=== PATIENT | female | born 1945 ===

== ENCOUNTER 2017-05-29 13:33 | Inpatient (IN) | payer BC, MEDICARE ==
--- NOTE | 2017-05-29 14:07 | ED PDOC ---
Arrival/HPI - General Chief Complaint: Shortness Of Breath Time Seen by Provider: 05/29/17 13:52 Historian: Patient - History of Present Illness Narrative History of Present Illness (Text): 05/29/17 14:03 A 71 year old female, whose past medical history includes hypertension, CHF, COPD, PE/DVT on coumadin, and sleep apnea, presents to the emergency department complaining of a productive cough for 5 days. Patient notes mild shortness of breath, however states it is not different from her normal baseline. Patient was seen at [facility] in [place], where she found to have pneumonia. Patient was later seen today by PMD who instructed her to come in for further evaluation. Patient denies any fever, chills, sore throat, congestion, nausea, vomiting, abdominal pain, chest pain, lower extremity swelling or any other complaints. PMD: Dr. Kohli Time/Duration: Other (5 days) Symptom Course: Unchanged Context: Other Past Medical History - Provider Review Nursing Documentation Reviewed: Yes - Infectious Disease Hx of Infectious Diseases: None - Tetanus Immunization Tetanus Immunization: Unknown - Cardiac Hx Cardiac Disorders: Yes Hx Circulatory Problems: Yes Hx Hypertension: Yes Hx Peripheral Vascular Disease: Yes Other/Comment: DVT/PE - Pulmonary Hx Respiratory Disorders: Yes Hx Chronic Obstructive Pulmonary Disease (COPD): Yes Hx Pulmonary Embolism: Yes (apr 2014) Hx Sleep Apnea: Yes (CPAP) - Neurological Hx Neurological Disorder: Yes Hx Dizziness: Yes Hx Transient Ischemic Attacks (TIA): Yes (04-29-15) - HEENT Hx Cataracts: Yes - Renal Hx Renal Disorder: No - Endocrine/Metabolic Hx Endocrine Disorders: No - Hematological/Oncological Hx Blood Disorders: Yes Hx Anemia: Yes - Integumentary Hx Dermatological Disorder: No - Musculoskeletal/Rheumatological Hx Musculoskeletal Disorders: Yes Hx Osteoarthritis: Yes - Gastrointestinal Hx Gastrointestinal Disorders: Yes - Genitourinary/Gynecological Hx Genitourinary Disorders: Yes (URGENCY) Hx Incontinence: Yes (only when on water pill) Hx Urinary Tract Infection: Yes - Psychiatric Hx Psychophysiologic Disorder: No Hx Substance Use: No - Past Surgical History Past Surgical History: No Previous - Anesthesia Hx Anesthesia: Yes Hx Anesthesia Reactions: No Hx Malignant Hyperthermia: No - Suicidal Assessment Feels Threatened In Home Enviroment: No Family/Social History - Physician Review Nursing Documentation Reviewed: Yes Family/Social History: No Known Family HX Smoking Status: Former Smoker Hx Alcohol Use: Yes Hx Substance Use: No Allergies/Home Meds Allergies/Adverse Reactions: Allergies No Known Allergies Allergy (Verified 05/29/17 13:55) Home Medications: Home Meds Medication Instructions Recorded Confirmed Unobtainable 05/29/17 05/29/17 Review of Systems - Physician Review All systems were reviewed & negative as marked: Yes - Review of Systems Constitutional: absent: Fevers, Night Sweats ENT: absent: Sore Throat, Sinus Congestion Respiratory: SOB, Cough, Sputum Cardiovascular: absent: Chest Pain, Edema Gastrointestinal: absent: Abdominal Pain, Nausea, Vomiting Physical Exam Vital Signs Reviewed: Yes Vital Signs Temp Pulse Resp BP Pulse Ox 05/29/17 14:30 82 20 131/77 97 05/29/17 14:00 94 L 05/29/17 13:59 98.6 F 71 18 139/79 89 L 05/29/17 13:50 98.5 F 79 18 121/77 86 L Temperature: Afebrile Blood Pressure: Normal Pulse: Regular Respiratory Rate: Normal Appearance: Positive for: Well-Appearing, Non-Toxic, Comfortable Pain Distress: None Mental Status: Positive for: Alert and Oriented X 3 - Systems Exam Head: Present: Atraumatic, Normocephalic Pupils: Present: PERRL Extroacular Muscles: Present: EOMI Conjunctiva: Present: Normal Mouth: Present: Moist Mucous Membranes Neck: Present: Normal Range of Motion Respiratory/Chest: Present: Clear to Auscultation, Good Air Exchange, Other ( hypoxic). No: Respiratory Distress, Accessory Muscle Use Cardiovascular: Present: Regular Rate and Rhythm, Normal S1, S2. No: Murmurs Abdomen: Present: Normal Bowel Sounds. No: Tenderness, Distention, Peritoneal Signs Back: Present: Normal Inspection Upper Extremity: Present: Normal Inspection. No: Cyanosis, Edema Lower Extremity: Present: Normal Inspection, NORMAL PULSES. No: Edema, CALF TENDERNESS Neurological: Present: GCS=15, CN II-XII Intact, Speech Normal Skin: Present: Warm, Dry, Normal Color. No: Rashes Psychiatric: Present: Alert, Oriented x 3, Normal Insight, Normal Concentration Medical Decision Making ED Course and Treatment: 05/29/17 14:03 Impression: A 71 year old female with productive cough and mild shortness of breath Differential Diagnosis included but are not limited to: PNA vs. PE vs. COPD Plan: -- Chest xray -- EKG -- Labs -- Influenza A B stat -- Blood culture -- Urinalysis -- Reassess and disposition Progress Notes: EKG shows NSR at [address]-segment elevations, normal intervals, normal axis. Interpreted by me. 05/29/17 14:[address] Kohli, who reports patient was diagnosed with pneumonia yesterday and sent home on zithromycin. Recommends admission for IV antibiotics and requests Dr. Herrera for consult. 05/29/17 14:[address] Mathis from [facility] in [place], who reports patient was diagnosed with left lower lobe pneumonia on 05/28/17 and had a negative ultrasound for DVT. He notes patient refused chest CT and admission. Report Date : 05/29/2017 14:39:46 Procedure: Chest xray Dictator : Kendell Hudson MD IMPRESSION: There is a left lower lobe perihilar infiltrate consistent with pneumonia. 05/29/17 15:04 Patient treated with Rocephin IV and Azithromycin PO. Patient's ABG reviewed. Patient is 97% Oxy Sat on 2 L NC. She does not appear in respiratory distress. Will admit to Dr. Kohli's service to the Medical Floor for treatment of PNA. Patient failed outpatient treatment and needs IV antibiotics and considering her comorbidites she should be admitted. 05/29/17 15:57 D-dimer normal. Patient has a diagnosis of PNA and being treated. - Lab Interpretations Lab Results: 05/29/17 14:15 05/29/17 14:15 Lab Results 05/29/17 14:35: pCO2 52 H, pO2 72.0 L, HCO3 29.4 H, ABG pH 7.36, ABG Total CO2 31.0 H, ABG O2 Saturation 97.7, ABG O2 Content 14.7 L, ABG Base Excess 3.1 H, ABG Hemoglobin 11.1 L, ABG Carboxyhemoglobin 2.8 H, POC ABG HHb (Measured) 2.2, ABG Methemoglobin 0.9, ABG O2 Capacity 15.0 L, Hgb O2 Saturation 94.0 L, FiO2 30.0 05/29/17 14:15: Influenza Typ A,B (EIA) Negative for flu a/b 05/29/17 14:15: Sodium 140, Chloride 102, Potassium 4.6, Carbon Dioxide 31, Anion Gap 12, BUN 15, Creatinine 0.8, Est GFR ( Amer) > 60, Est GFR (Non- Af Amer) > 60, Random Glucose 119 H, Calcium 9.1, Total Bilirubin 0.4, AST 27, ALT 16, Alkaline Phosphatase 83, Lactate Dehydrogenase 566, Total Creatine Kinase 60, Troponin I < 0.01 D, NT-Pro-B Natriuret Pep 1010 H, Total Protein 7.1, Albumin 3.6, Globulin 3.5, Albumin/Globulin Ratio 1.0 L 05/29/17 14:15: pO2 58 H, VBG pH 7.36, VBG pCO2 59.0, VBG HCO3 33.3 H, VBG Total CO2 35.1 H, VBG O2 Sat (Calc) 93.3 H, VBG Base Excess 6.0 H, VBG Potassium 5.2, Sodium 136.0, Chloride 105.0, Glucose 125 H, Lactate 1.4, FiO2 21.0, Venous Blood Potassium 5.2 05/29/17 14:15: PT 13.8 H, INR 1.21 H, APTT 27.4, D-Dimer, Quantitative 242 05/29/17 14:15: WBC 6.9 D, RBC 4.26, Hgb 11.5 L, Hct 37.2, MCV 87.3, MCH 27.0, MCHC 30.9 L, RDW 16.3 H, Plt Count 328, MPV 9.6, Gran % 63.6, Lymph % (Auto) 21.0 L, [place] % (Auto) 12.2 H, Eos % (Auto) 2.8, Baso % (Auto) 0.4, Gran # 4.36, Lymph # (Auto) 1.4, [place] # (Auto) 0.8 H, Eos # (Auto) 0.2, Baso # (Auto) 0.03 I have reviewed the lab results: Yes - RAD Interpretation Radiology Orders: 05/29/17 14:04 CHEST PORTABLE [RAD] Stat - Medication Orders Current Medication Orders: Discontinued Medications Azithromycin (Zithromax) 500 mg PO STAT STA PRN Reason: Protocol Stop: 05/29/17 15:02 Last Admin: 05/29/17 15:19 Dose: 500 mg Ceftriaxone Sodium (Rocephin 1 Gram Ivpb) 1 gm in 100 mls @ 200 mls/hr IVPB STAT STA PRN Reason: Protocol Stop: 05/29/17 15:30 Last Admin: 05/29/17 15:21 Dose: 200 mls/hr eMAR Start Stop Document 05/29/17 15:21 FABIAN (Rec: 05/29/17 15:23 GENAROCalli [id number]) Intravenous Solution Start Date 05/29/17 Start Time 15:22 End Date 05/29/17 End time 16:00 Total Infusion Time 38 - Scribe Statement The provider has reviewed the documentation as recorded by the Miladysibilene Fontaine Provider Scribe Attestation: All medical record entries made by the Scribe were at my direction and personally dictated by me. I have reviewed the chart and agree that the record accurately reflects my personal performance of the history, physical exam, medical decision making, and the department course for this patient. I have also personally directed, reviewed, and agree with the discharge instructions and disposition. Disposition/Present on Arrival - Present on Arrival Any Indicators Present on Arrival: Yes History of DVT/PE: Yes History of Uncontrolled Diabetes: No Urinary Catheter: No History of Decub. Ulcer: No History Surgical Site Infection Following: None - Disposition Have Diagnosis and Disposition been Completed?: Yes Diagnosis: Pneumonia Disposition Time: 15:01 Patient Plan: Admission Condition: GUARDED
--- NOTE | 2017-05-29 14:41 | RAD ---
HISTORY: cough r/o pna COMPARISON: 05/02/2015 FINDINGS: LUNGS: There is a left lower lobe perihilar infiltrate consistent with pneumonia. PLEURA: No significant pleural effusion identified, no pneumothorax apparent. CARDIOVASCULAR: Normal. OSSEOUS STRUCTURES: No significant abnormalities. VISUALIZED UPPER ABDOMEN: Normal. OTHER FINDINGS: None. IMPRESSION: There is a left lower lobe perihilar infiltrate consistent with pneumonia.
[2017-05-29 14:42] LABS: ARTERIAL BLOOD GAS HCO3 29.4 mmol/L (21-28); ARTERIAL BLOOD GAS HEMOGLOBIN 11.1 g/dL (11.7-17.4); ARTERIAL BLOOD GAS O2 CONTENT 14.7 ML/dl (15-23); ARTERIAL BLOOD GAS O2 SAT 97.7 % (95-98); ARTERIAL BLOOD GAS PCO2 52 mm/Hg (35-45); ARTERIAL BLOOD GAS PH 7.36 (7.35-7.45)
[2017-05-29 14:45] LABS: VENOUS BLOOD GAS PO2 58 mm/Hg (30-55); VENOUS BLOOD PH 7.36 (7.32-7.43)
[2017-05-29 14:46] LABS: BASO # 0.03 K/mm3 (0.0-2.0); BASO % 0.4 % (0.0-3.0); EOS # 0.2 (0.0-0.7); EOS % 2.8 % (1.5-5.0); GRAN # 4.36 (1.4-6.5); GRAN % 63.6 % (50.0-68.0); HEMOGLOBIN 11.5 g/dL (12.0-16.0); LYMPH # 1.4 (1.2-3.4); MEAN CELL VOLUME 87.3 fl (80.0-105.0); MEAN CORPUSCULAR HGB CONC 30.9 g/dl (31.0-37.0); MEAN PLATELET VOLUME 9.6 fl (7.0-11.0); MONO # 0.8 (0.1-0.6); MONO % 12.2 % (1.0-6.0); RBC 4.26 10^6/uL (3.5-6.1); RED CELL DISTRIBUTION WIDTH 16.3 % (11.5-14.5); WHITE BLOOD COUNT 6.9 10^3/ul (4.5-11.0)
[2017-05-29 14:59] LABS: INR 1.21 (0.93-1.08); PARTIAL THROMBOPLASTIN TIME 27.4 Seconds (25.1-36.5); PROTHROMBIN TIME 13.8 SECONDS (9.4-12.5)
[2017-05-29] MEDS ORDERED: cefTRIAXone 1 gm 1 GM/100 ML BAG IVPB STA (15:01)
[2017-05-29 15:07] LABS: ALBUMIN 3.6 g/dL (3.0-4.8); ALT/SGPT 16 U/L (7-56); AST/SGOT 27 U/L (14-36); BLOOD UREA NITROGEN 15 mg/dL (7-21); CALCIUM 9.1 mg/dL (8.4-10.5); GFR AFRICAN-AMERICAN > 60; GFR NON-AFRICAN AMERICAN > 60
[2017-05-29 15:24] LABS: B-TYPE NATRIURETIC PEPTIDE 1010 pg/mL (0-450); TROPONIN I < 0.01 ng/mL
[2017-05-29 16:40] LABS: PH,URINE 6.5 (4.7-8.0); URINE BILIRUBIN NEGATIVE (NEGATIVE); URINE BLOOD NEGATIVE (NEGATIVE); URINE GLUCOSE (UA) NEGATIVE (NEGATIVE); URINE LEUKOCYTE ESTERASE NEGATIVE Leu/uL (NEGATIVE); URINE NITRATE NEGATIVE (NEGATIVE); URINE PROTEIN NEGATIVE mg/dL (<30 mg/dL); URINE UROBILINOGEN 0.2 E.U./dL (<1 E.U./dL)
[2017-05-29 16:41] LABS: URINE APPEARANCE CLEAR (CLEAR); URINE COLOR YELLOW (YELLOW)
--- NOTE | 2017-05-29 20:47 | CARD ---
APPROVED REPORT EKG Measurement Heart [id number] [id number] <Conclusion> Normal sinus rhythm Normal ECG
[2017-05-29 21:51] VITALS: BMI 36.6
[2017-05-29] MEDS ORDERED: Pneumococcal 23-Valent Vaccine IM ONE (21:51)
[2017-05-29] MEDS ORDERED: Influenza Vaccine 60 mcg/0.5 mL SYR (4YR UP) IM ONE (21:51)
[2017-05-30] MEDS: Albuterol-Ipratrop 3 mg / 0.5 (3 ml) UD IH SCH ×4 (01:16→20:25)
--- NOTE | 2017-05-30 03:37 | CON ---
DATE: 05/29/2017 PULMONARY CONSULT REFERRING PHYSICIAN: Melvina Kohli MD. REASON FOR CONSULT: Cough, shortness of breath, pneumonia. HISTORY OF PRESENT ILLNESS: This is a 71-year-old female with past medical history significant for chronic obstructive lung disease, history of PE, DVT, on anticoagulation, also has a known sleep apnea syndrome, congestive heart failure, comes into ER with cough for last few days. She was also seen at [facility], seen by Dr. Kohli as outpatient, was recommended to come to ER. Chest x-ray shows left lung infiltrate. No hemoptysis, no hematemesis, no hematuria. No diarrhea reported. PAST MEDICAL HISTORY: Chronic obstructive lung disease, heart failure, history of PE, DVT, sleep apnea syndrome, history of TIAs, anemia, osteoarthritis, history of GI bleed in the past. FAMILY HISTORY: No significant cardiopulmonary disease reported. SOCIAL HISTORY: Former smoker. Denies any alcohol use. ALLERGIES: NONE KNOWN. MEDICATIONS: As outpatient, she was on Coumadin, Diovan, Lasix and Coreg. REVIEW OF SYSTEMS: No headache, no rhinitis. Has cough, shortness of breath. No chest pain. No nausea. No vomiting. No diarrhea. No dysuria. No leg pain or leg swelling. PHYSICAL EXAMINATION: GENERAL: Sitting on side of the bed with mild cough. VITAL SIGNS: Temp is 98, heart rate is 72, respiratory rate is 18, blood pressure 129/63, pulse ox 97% on 2 L nasal cannula. HEENT: Moist mucous membrane. Crowded airway. Mallampati score is 4. NECK: Supple. No JVD. LUNGS: Have a scattered rhonchi, prolonged expiratory phase. HEART: S1 and S2. ABDOMEN: Soft, nontender. No organomegaly. EXTREMITIES: There is no edema. NEUROLOGIC: Awake, alert. Follows simple command. LABORATORY DATA: Shows hemoglobin 11.5, hematocrit 37.2, WBC 6.9, platelet is 328. INR 1.21, PTT is 27. ABG showed pH 7.36, pCO2 of 52, O2 of 72. This is on nasal cannula. Sodium 140, potassium 4.6, chloride 102, bicarbonate 31, BUN 15, creatinine 0.8, glucose 119, calcium 9.1, total bili 0.4, AST 27, ALT 16, alk phos is 83. LDH 566. Troponin less than 0.01. ProBNP 1010. Albumin 3.6. Urinalysis is unremarkable. Influenza A and B is negative. Chest x-ray shows left hilar and lower lobe infiltrate. She had echocardiogram done last year, which shows right ventricular systolic pressure is 37, dilated left atrium and right atrium. Mild pulmonary hypertension with mild concentric left ventricular hypertrophy. Last chest x-ray before that was in 05/2016, which shows no infiltrate or effusion. IMPRESSION AND PLAN: Community-acquired pneumonia, chronic obstructive lung disease, sleep apnea syndrome, history of deep venous thrombosis and pulmonary embolism, history of transient ischemic attacks, renal insufficiency, anemia. We will get CT scan of chest to assure the infiltrates. May give Coumadin 5 mg today. INR in the morning. We will place on continuous positive airway pressure 10 cm and 30% oxygen while sleeping. Start Rocephin and Zithromax, Solu-Medrol, inhaled bronchodilator, gastric prophylaxis. Thank you and we will follow with you. Danii Herrera MD
[2017-05-30] MEDS: Pantoprazole 40 mg EC Tab PO SCH (06:07)
[2017-05-30 07:53] LABS: PROTHROMBIN TIME 15.3 SECONDS (9.4-12.5)
[2017-05-30 07:54] LABS: INR 1.32 (0.93-1.08)
--- NOTE | 2017-05-30 08:51 | CT ---
PROCEDURE: CT Chest without contrast HISTORY: infiltrate COMPARISON: None. TECHNIQUE: Contiguous axial images were obtained through the chest without intravenous contrast enhancement. Sagittal and coronal reconstructions were performed. Radiation dose (DLP): 706 mGy-cm. This CT exam was performed using one or more of the following dose reduction techniques: Automated exposure control, adjustment of the mA and/or kV according to patient size, and/or use of iterative reconstruction technique. FINDINGS: LUNGS: There is a patchy infiltrate at the right lung base posteriorly. MEDIASTINUM: Unremarkable thoracic aorta. No aneurysm. Moderate to severe cardiomegaly Main pulmonary artery unremarkable. No vascular congestion. No lymphadenopathy. PLEURA: No pleural fluid. No pneumothorax. BONES: No fracture. No destructive lesion. UPPER ABDOMEN: Hiatal hernia OTHER FINDINGS: None. IMPRESSION: Patchy infiltrate posterior right lower lobe consistent with pneumonia
[2017-05-30] MEDS: cefTRIAXone 1 gm 1 GM/100 ML BAG IVPB SCH (10:43)
[2017-05-31 00:44] LABS: IRON 23 ug/dL (45-180)
[2017-05-31 00:54] LABS: % IRON SATURATION 6 % (20-55); TOTAL IRON BINDING CAPACITY 376 ug/dL (265-497)
[2017-05-31 00:58] LABS: INR 1.45 (0.93-1.08); PROTHROMBIN TIME 16.7 SECONDS (9.4-12.5)
--- NOTE | 2017-05-31 02:55 | PN ---
DATE: 05/30/2017 PULMONARY PROGRESS NOTE REFERRING PHYSICIAN: Dr. Kohli. SUBJECTIVE: Patient is sitting on the chair. is at bedside. Night was unremarkable, tolerated CPAP well, breathing is improved. Decreased cough. No nausea. No vomiting or diarrhea. No leg pain or leg swelling. OBJECTIVE: GENERAL: In no acute distress. VITAL SIGNS: Temperature is 98, heart rate is 75, respiratory rate is 25, blood pressure 153/61, and pulse ox 96% . HEENT: Moist mucous membranes. Crowded airway. Mallampati score is IV. NECK: Supple. No JVD. LUNGS: Has prolonged expiratory phase, some wheezing. HEART: S1 and S2. ABDOMEN: Soft and nontender. No organomegaly. EXTREMITIES: No edema. NEUROLOGIC: Awake and alert. Follows simple command. MEDICATIONS: She is on Coreg 3.25 mg twice a day, Cozaar 50 mg daily, DuoNeb q. 6 hours, Fosamax 70 mg weekly, Lasix 40 mg daily, Norvasc 2.5 mg daily, Protonix 40 mg daily, Rocephin 1 g daily, Zithromax 500 mg daily. LABORATORY DATA: Reviewed and noted. INR is 1.32. Sodium 140 yesterday. Microbiology: Blood culture has been negative. CAT scan of the chest done today shows patchy infiltrate posterior right lower lobe consistent with pneumonia. IMPRESSION AND PLAN: Community-acquired pneumonia, chronic obstructive lung disease, sleep apnea syndrome, history of deep venous thrombosis, history of pulmonary embolism, history of transient ischemic attack, anemia. Pulmonary point of view, doing okay. Continue antibiotics, inhaled bronchodilator. Continue continuous positive airway pressure. Anticoagulation. Thank you and we will follow with you. Danii Herrera MD
[2017-05-31] MEDS: Albuterol-Ipratrop 3 mg / 0.5 (3 ml) UD IH SCH ×5 (03:09→20:42)
[2017-05-31] MEDS: Pantoprazole 40 mg EC Tab PO SCH (06:24)
[2017-05-31 07:06] LABS: HEMOGLOBIN 11.5 g/dL (12.0-16.0); MEAN CELL VOLUME 87.6 fl (80.0-105.0); MEAN CORPUSCULAR HEMOGLOBIN 26.5 pg (25.0-35.0); MEAN CORPUSCULAR HGB CONC 30.3 g/dl (31.0-37.0); MEAN PLATELET VOLUME 9.4 fl (7.0-11.0); RBC 4.34 10^6/uL (3.5-6.1); RED CELL DISTRIBUTION WIDTH 16.3 % (11.5-14.5); WHITE BLOOD COUNT 6.8 10^3/ul (4.5-11.0)
[2017-05-31 07:21] LABS: BLOOD UREA NITROGEN 12 mg/dL (7-21); CALCIUM 8.7 mg/dL (8.4-10.5); GFR AFRICAN-AMERICAN > 60; GFR NON-AFRICAN AMERICAN > 60
[2017-05-31 07:25] LABS: INR 1.58 (0.93-1.08); PROTHROMBIN TIME 18.3 SECONDS (9.4-12.5)
[2017-05-31] MEDS: cefTRIAXone 1 gm 1 GM/100 ML BAG IVPB SCH (09:26)
--- NOTE | 2017-05-31 12:14 | HP ---
CHIEF COMPLAINT: Shortness of breath with coughing. HISTORY OF PRESENT ILLNESS: Ms. Katty Bates is a 71-year-old female with past medical history of hypertension, congestive heart failure, COPD, PE, DVT on Coumadin, has sleep apnea, came to the emergency department complaining of productive cough for five days. The patient noticed shortness of breath; however, case is not different from her normal baseline. The patient was seen. Actually, the patient went to retina specialist for retinal surgery and anesthesiologist, however, noticed that the patient's oxygenation is in 80s. They sent the patient to [facility] in [place] where she is found to have pneumonia. They were planning to admit the patient, but as per the patient's , they signed against medical advise and got prescription of a Z-Cj and came in my office on 05/29/2017. Even in my office, her pulse oximeter was in 80s and then I sent her to [facility] Emergency Room and spoke to the emergency room physician about the patient's condition. Patient denies fever, chills. No sore throat. No congestion. No nausea, vomiting or diarrhea. No rash. We admitted the patient, called Pulmonary consult. PAST MEDICAL HISTORY: As above. Hypertension, pneumonia, COPD, sleep apnea, TIA, cataract, anemia, osteoarthritis, urgency. FAMILY HISTORY: Father and mother noncontributory. HABITS: Former smoker, no drug, no ethanol. ALLERGIES: THE PATIENT IS NOT ALLERGIC WITH ANY MEDICATION. HOME MEDICATIONS: She do not remember. REVIEW OF SYSTEMS: Patient was seen and examined at the bedside, still coughing, some shortness of breath. No fever. No night sweats. No sore throat. No sinus congestion. With cough, bringing some phlegm. No chest pain. No edema. No abdominal pain. No nausea or vomiting. PHYSICAL EXAMINATION: VITAL SIGNS: Temperature 98.5, pulse 79, respiratory rate 18, blood pressure 120/77, and pulse oximetry of 86. HEENT: Head is normocephalic, atraumatic. Eyes: PERRLA. Extraocular muscles intact. Conjunctivae clear. Nose patent. Mucous membrane moist. NECK: Supple. No carotid bruit. No JVD or thyromegaly. CHEST: Bilaterally symmetrical. HEART: S1 and S2 positive. LUNGS: Positive wheezing bilaterally. ABDOMEN: Soft. Bowel sounds present. No organomegaly. EXTREMITIES: No edema. No cyanosis. NEUROLOGIC: Patient is awake and alert. Moving all four extremities. LABORATORY DATA: White blood cell is 6.9, hemoglobin 11.5, hematocrit 37.2 and platelets 325. Sodium 140, potassium 4.6, BUN 15, creatinine 0.8 and glucose of 119. ASSESSMENT AND PLAN: Ms. Katty Bates is a 71-year-old lady with anemia, hyperglycemia. The patient has history of chronic obstructive lung disease, congestive heart failure, history of pulmonary emboli, deep venous thrombosis, sleep apnea syndrome, history of transient ischemic attack, anemia, osteoarthritis, history of gastrointestinal bleeding in the past. Former smoker. Still smoking , but not heavily, has community-acquired pneumonia. CAT scan of the chest done, need positive airway pressure 10 cm and 30% oxygen while sleeping. Start Rocephin and azithromycin, Solu-Medrol, inhaled bronchodilators. Gastrointestinal and deep venous thrombosis prophylaxis. Appreciated Dr. Herrera's input. Started the patient's old medications. The patient's INR is 1.32. We will give high-dose of Coumadin and Lovenox. We will follow up. Melvina Kohli MD [email or web address]
[2017-05-31 12:39] LABS: FOLATE 14.9 ng/mL
--- NOTE | 2017-05-31 15:45 | CP.PCM.PN ---
<Tari Williamson - Last Filed: 05/31/17 15:47> Subjective - Date & Time of Evaluation Date of Evaluation: 05/31/17 Time of Evaluation: 09:30 - Subjective Subjective: Chief Complaint: shortness of breath 71 yr female w/ history of HTN, CHF, COPD, PE/DVT (on coumadin), sleep apnea, TIA (2016), anemia, cataracts, & osteoarthritis. Dr. Mathis from [facility] in [place] diagnosed patient with L lower lobe pneumonia on and had a negative ultrasound for DVT. He noted that patient refused chest CT and admission. Pt was seen in our office on 05/29 with low O2 saturations and [place] [facility] [place] Today, pt has no complaints. Denies any shortness of breath, chest pain, headache, fever, chills, diarrhea, constipation, paraesthesias, or urinary changes. Objective - Vital Signs/Intake and Output Vital Signs (last 24 hours): Temp Pulse Resp BP Pulse Ox 98.6 F 76 20 146/57 L 98 05/31/17 07:00 05/31/17 07:00 05/31/17 07:00 05/31/17 09:26 05/31/17 07:00 Intake and Output: 05/31/17 05/31/17 06:59 18:59 Intake Total 220 600 Balance 220 600 - Medications Medications: Current Medications Albuterol/Ipratropium (Duoneb 3 Mg/0.5 Mg (3 Ml) Ud) 3 ml IH [id number] [facility] Last Admin: 05/31/17 13:36 Dose: 3 ml Alendronate Sodium (Fosamax) 70 mg PO Q7D [facility] Amlodipine Besylate (Norvasc) 2.5 mg PO DAILY [facility] Last Admin: 05/31/17 09:25 Dose: 2.5 mg Azithromycin (Zithromax) 500 mg PO DAILY [facility] PRN Reason: Protocol Last Admin: 05/31/17 09:25 Dose: 500 mg Carvedilol (Coreg) 3.125 mg PO BID [facility] Last Admin: 05/31/17 09:25 Dose: 3.125 mg Furosemide (Lasix) 40 mg PO DAILY [facility] Last Admin: 05/31/17 09:26 Dose: 40 mg Ceftriaxone Sodium (Rocephin 1 Gram Ivpb) 1 gm in 100 mls @ 100 mls/hr IVPB DAILY [facility] PRN Reason: Protocol Stop: 06/03/17 10:59 Last Admin: 05/31/17 09:26 Dose: 100 mls/hr Losartan Potassium (Cozaar) 50 mg PO DAILY [facility] Last Admin: 05/31/17 09:26 Dose: 50 mg Pantoprazole Sodium (Protonix Ec Tab) 40 mg PO 0600 [facility] Last Admin: 05/31/17 06:24 Dose: 40 mg - Labs Labs: 05/31/17 06:45 05/31/17 06:45 PT 18.3 SECONDS (9.4-12.5) H 05/31/17 06:45 INR 1.58 (0.93-1.08) H 05/31/17 06:45 APTT 27.4 Seconds (25.1-36.5) 05/29/17 14:15 - Constitutional Appears: Well - Head Exam Head Exam: ATRAUMATIC, NORMAL INSPECTION, NORMOCEPHALIC - Eye Exam Eye Exam: EOMI, Normal appearance, PERRL Pupil Exam: NORMAL ACCOMODATION, PERRL - ENT Exam ENT Exam: Mucous Membranes Moist, Normal Exam - Neck Exam Neck Exam: Full ROM, Normal Inspection. absent: Lymphadenopathy - Respiratory Exam Respiratory Exam: Clear to Ausculation Bilateral, NORMAL BREATHING PATTERN - Cardiovascular Exam Cardiovascular Exam: REGULAR RHYTHM, +S1, +S2. absent: Murmur - GI/Abdominal Exam GI & Abdominal Exam: Soft, Hernia, Normal Bowel Sounds. absent: Tenderness - Extremities Exam Extremities Exam: Full ROM, Normal Capillary Refill, Normal Inspection. absent : Joint Swelling, Pedal Edema - Back Exam Back Exam: NORMAL INSPECTION - Neurological Exam Neurological Exam: Alert, Awake, CN II-XII Intact, Normal Gait, Oriented x3 - Psychiatric Exam Psychiatric exam: Normal Affect, Normal Mood - Skin Skin Exam: Dry, Intact, Normal Color, Warm Assessment and Plan (1) Sleep apnea Status: Acute (2) Morbid (severe) obesity with alveolar hypoventilation Status: Acute (3) Anemia Status: Acute (4) Pneumonia Status: Acute (5) Hypoxia Status: Acute - Assessment and Plan (Free Text) Plan: IV rocephin and zithromax. Anemia: PO feosol and vit C started. On coumadin. VTE /GI prophylaxis. PT/OT on board. Consults: Pulmo - Dr. Herrera Reviewed: CT chest = patchy infiltrate posterior R lower lobe consistent w/ pneumonia CXR = L lower lobe perihilar infiltrate consistent w/ pneumonia ECG = NSR <Melvina Kohli - Last Filed: 06/01/17 14:47> Objective - Vital Signs/Intake and Output Vital Signs (last 24 hours): Temp Pulse Resp BP Pulse Ox 98.4 F 84 20 120/96 H 97 06/01/17 07:00 06/01/17 09:57 06/01/17 07:00 06/01/17 09:57 06/01/17 07:00 Intake and Output: 06/01/17 06/01/17 06:59 18:59 Intake Total 100 920 Balance 100 920 - Medications Medications: Current Medications Albuterol/Ipratropium (Duoneb 3 Mg/0.5 Mg (3 Ml) Ud) 3 ml IH [id number] [facility] Last Admin: 06/01/17 13:59 Dose: 3 ml Alendronate Sodium (Fosamax) 70 mg PO Q7D [facility] Amlodipine Besylate (Norvasc) 2.5 mg PO DAILY [facility] Last Admin: 06/01/17 09:56 Dose: 2.5 mg Ascorbic Acid (Vitamin C 500 Mg Tab) 500 mg PO DAILY [facility] Last Admin: 06/01/17 09:56 Dose: 500 mg Azithromycin (Zithromax) 500 mg PO DAILY [facility] PRN Reason: Protocol Last Admin: 06/01/17 09:55 Dose: 500 mg Carvedilol (Coreg) 3.125 mg PO BID [facility] Last Admin: 06/01/17 09:57 Dose: 3.125 mg Enoxaparin Sodium (Lovenox) 100 mg SC Q12H [facility] PRN Reason: Protocol Ferrous Sulfate (Feosol) 324 mg PO BID [facility] Last Admin: 06/01/17 09:55 Dose: 324 mg Furosemide (Lasix) 40 mg PO DAILY [facility] Last Admin: 06/01/17 09:56 Dose: 40 mg Ceftriaxone Sodium (Rocephin 1 Gram Ivpb) 1 gm in 100 mls @ 100 mls/hr IVPB DAILY [facility] PRN Reason: Protocol Stop: 06/03/17 10:59 Last Admin: 05/31/17 09:26 Dose: 100 mls/hr Losartan Potassium (Cozaar) 50 mg PO DAILY [facility] Last Admin: 06/01/17 09:57 Dose: 50 mg Pantoprazole Sodium (Protonix Ec Tab) 40 mg PO 0600 [facility] Last Admin: 05/31/17 06:24 Dose: 40 mg Warfarin Sodium (Coumadin) 10 mg PO 1800 [facility] PRN Reason: Protocol - Labs Labs: 05/31/17 06:45 05/31/17 06:45 PT 18.3 SECONDS (9.4-12.5) H 05/31/17 06:45 INR 1.58 (0.93-1.08) H 05/31/17 06:45 APTT 27.4 Seconds (25.1-36.5) 05/29/17 14:15 Assessment and Plan - Assessment and Plan (Free Text) Plan: 71 yr female w/ history of HTN, CHF, COPD, PE/DVT (on coumadin), sleep apnea, TIA (2016), anemia, cataracts, & osteoarthritis. Dr. Mathis from [facility] in [place] diagnosed patient with L lower lobe pneumonia on and had a negative ultrasound for DVT. He noted that patient refused chest CT and admission. Pt was seen in our office on 05/29 with low O2 saturations and [place] [facility] [place] Today, pt has no complaints. Denies any shortness of breath, chest pain, headache, fever, chills, diarrhea, constipation, paraesthesias, or urinary changes. pt is seen and examined at bed side , looking comfortable , agreed all above . chart , meds and labs notecd , will f/iu
--- NOTE | 2017-05-31 23:57 | PN ---
DATE: 05/31/2017 PULMONARY PROGRESS NOTE REFERRING PHYSICIAN: Dr. Kohli. SUBJECTIVE: Patient is out of bed to chair, on supplemental oxygen. Night was unremarkable, tolerates BiPAP well. No nausea, no vomiting, no diarrhea. No leg pain or leg swelling. OBJECTIVE: GENERAL: In no acute distress. VITAL SIGNS: Temperature is 98, heart rate is 98, respiratory rate is 20, blood pressure 119/56, pulse ox of 98% on nasal cannula. HEENT: Moist mucous membrane. Crowded airway. Mallampati score is IV. NECK: Supple. No JVD. LUNGS: Have a fair airflow with rhonchi. HEART: S1 and S2. ABDOMEN: Soft and nontender. No organomegaly. EXTREMITIES: There is no edema. NEUROLOGICAL: Awake and alert. Follows simple command. MEDICATIONS: She is on Coreg 3.125 mg twice a day, Cozaar 50 mg daily, DuoNeb q. 6 hours, ferrous sulfate 324 mg twice a day, Fosamax 70 mg weekly, Lasix 40 mg daily, Norvasc 2.5 mg daily, Protonix 40 mg daily, Rocephin 1 g IV daily, vitamin C 500 mg daily, Zithromax 500 mg daily. LABORATORY DATA: Shows hemoglobin 11.5, hematocrit 38.0, WBC 6.8, platelet is 308. INR 1.58. Sodium 142, potassium 4.5, chloride 102, bicarbonate 33, BUN 12, creatinine 0.8, glucose 106, calcium is 8.7, cholesterol is 192. TSH 1.80. Microbiology: Blood culture, there is no growth. Had a CAT scan of the chest done, which shows patchy infiltrate of the right lower lobe consistent with pneumonia. IMPRESSION AND PLAN: Community-acquired pneumonia, chronic obstructive lung disease, sleep apnea syndrome, history of deep venous thrombosis, pulmonary embolism, history of transient ischemic attack, anemia. Continue antibiotics. Keep head at 45 degrees. Gastric prophylaxis, anticoagulation. Continue bilevel positive airway pressure while sleeping. Fall precaution. Thank you and we will follow with you. Danii Herrera MD
[2017-06-01] MEDS: Albuterol-Ipratrop 3 mg / 0.5 (3 ml) UD IH SCH ×4 (03:09→20:50)
[2017-06-01] MEDS: Enoxaparin 100 mg Syringe SC SCH (13:48)
[2017-06-01] MEDS ORDERED: Enoxaparin 60 mg Syringe SC SCH (17:30)
[2017-06-01] MEDS: cefTRIAXone 1 gm 1 GM/100 ML BAG IVPB SCH (17:54)
--- NOTE | 2017-06-01 22:32 | PN ---
DATE: SUBJECTIVE: The patient is a 71-year-old female. Patient is seen and examined at the bedside, looking comfortable. Still coughing with shortness of breath. No nausea, vomiting or diarrhea. No hematuria or hematochezia. No swelling of the legs. No chest pain, no palpitation. Patient's granddaughter was sitting at the bedside. Length of time discussion done. All questions answered. PHYSICAL EXAMINATION: VITAL SIGNS: Temperature is 98, pulse 75, blood pressure 113/71, respiratory rate 20, pulse oximetry is 95%. HEENT: Head: Normocephalic, atraumatic. Eyes: PERRLA. Extraocular muscles intact. Conjunctivae clear. Nose patent. Mucous membrane moist. NECK: Supple. No carotid bruits. No JVD or thyromegaly. CHEST: Bilaterally symmetrical. HEART: S1 and S2 positive. LUNGS: Clear to auscultation. ABDOMEN: Soft. Bowel sounds positive. No organomegaly. EXTREMITIES: No edema. No cyanosis. NEUROLOGIC: Patient is awake and alert, moving all 4 extremities. No focal deficit. MEDICATIONS: Coreg, Coumadin, Cozaar, DuoNeb, Feosol, Fosamax, Lasix, Lovenox, Protonix, Rocephin, vitamin C, Zithromax. LABORATORY DATA: We do not have recent lab today, but I reviewed old labs. ASSESSMENT AND PLAN: Ms. Katty Bates is a 71-year-old female with anemia, iron deficiency; influenza type and A and B is negative; obesity; has community-acquired pneumonia; chronic obstructive lung disease, sleep apnea syndrome; history of deep vein thrombosis; pulmonary embolism; history of transient ischemic attack. Continue antibiotics. Keep head elevated at 45 degrees. Gastrointestinal prophylaxis. Anticoagulation as per Dr. 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 Continue bilevel positive airway pressure while sleeping. Fall precautions. Discussion done with patient, the patient's family and Dr. Lopez. Appreciated Dr. Herrera's input. Repeat labs. We will follow up. Melvina Kohli MD
[2017-06-02] MEDS: Enoxaparin 100 mg Syringe SC SCH ×2 (01:06→17:01)
[2017-06-02] MEDS: Albuterol-Ipratrop 3 mg / 0.5 (3 ml) UD IH SCH ×5 (02:04→20:18)
--- NOTE | 2017-06-02 02:07 | CON ---
DATE: 06/01/2017 REASON FOR CONSULTATION: Pulmonary embolism, hypoxia, anemia. HISTORY OF PRESENT ILLNESS: Ms. Bates is a 71-year-old female well known to me from office. She had extensive DVT in 2014, was intubated then. She has hypercoagulable state. She was off Coumadin for 5 days. When she went to retina specialist, she was found to be hypoxic and oxygen saturation in the 80s. She went to ER, where she left AMA, and was admitted to [facility]. She is hypoxic in the 80s. CAT scan without contrast showed left lower lobe pneumonia. INR is subtherapeutic at 1.5. She is refusing Lovenox injection. PAST MEDICAL HISTORY: Hypertension, COPD, osteoarthritis, extensive pulmonary embolism, DVT, iron deficiency anemia. FAMILY HISTORY: Not contributory. PERSONAL HISTORY: Former smoker, quit 2 years ago. ALLERGIES: NO KNOWN DRUG ALLERGIES. HOME MEDICATIONS: Norvasc 2.5 mg daily, Coreg 3.125 mg p.o. b.i.d., Cozaar 50 mg daily, Protonix 40 mg daily, Coumadin 5 mg daily. REVIEW OF SYSTEMS: As per HPI. Rest of 12-point review of systems reviewed and negative. LABORATORY DATA: Hemoglobin 11.5, white count 6.8, platelet count 308. Sodium 142, potassium 4.5, creatinine 0.8, iron 23, iron saturation 6%. Flu serology negative. PHYSICAL EXAMINATION GENERAL: Comfortable in bed. No acute distress, on oxygen by nasal cannula. VITAL SIGNS: Oxygen saturation 95%; on admission, it was 86%. Blood pressure 113/71, heart rate is 70 per minute. HEENT: Mucosal pallor. NECK: No lymphadenopathy. CHEST: Air entry present and equal bilaterally. No added sound. CARDIOVASCULAR: S1 and S2 normal. No murmur. No gallop. ABDOMEN: Soft, nontender. No hepatosplenomegaly. EXTREMITIES: No edema. SPINE: Nontender. SKIN: No petechiae. No rash. ASSESSMENT AND PLAN: Lovenox 100 mg subcutaneously q. 12, Coumadin at 10 mg daily. She had a CAT scan without contrast. She refused Lovenox for bridging with Coumadin when it need to be interrupted. Hypoxia is concerning for recurrent pulmonary embolism. She is currently on IV antibiotics with Zithromax and ceftriaxone for pneumonia. She is status post IV iron for iron-deficiency anemia. Hemoglobin and hematocrit is stable, at 11.5. She has been evaluated by GI and no source of bleeding was found. Iron has been stable for past few years until recently. Thank you Dr. Kohli for allowing us to participate in Ms. Bates' care. Yoselin Lopez MD MTDJohnnie
--- NOTE | 2017-06-02 02:49 | PN ---
DATE: 06/01/2017 REFERRING PHYSICIAN: Melvina Kohli MD. SUBJECTIVE: Sitting at the side of the bed, feels better. Night was unremarkable. Tolerated BiPAP well. No nausea. No vomiting, or diarrhea. No leg pain or leg swelling. PHYSICAL EXAMINATION GENERAL: In no acute distress. VITAL SIGNS: Temperature is 98, heart rate is 75, respiratory rate is 20, blood pressure 113/71, pulse ox of 95% on 2 L nasal cannula. HEENT: Moist mucous membrane. Crowded airway. NECK: Supple. No JVD. LUNGS: Fair airflow with rhonchi. HEART: S1 and S2. ABDOMEN: Soft, nontender. No organomegaly. EXTREMITIES: No edema. NEUROLOGICAL: Awake and alert. Follows simple command. MEDICATIONS: She is on Coreg 3.125 mg twice a day, Coumadin 10 mg will be given, Cozaar 50 mg daily, DuoNeb q. 6 hours, ferrous sulfate 324 mg twice a day, Fosamax 70 mg weekly, Lasix 40 mg daily, Lovenox 100 mg subcu twice a day, Norvasc 2.5 mg daily, Protonix 40 mg daily, vitamin C 500 mg daily, Zithromax 500 mg daily. LABORATORY DATA: Hemoglobin 11.5, hematocrit 38.0, WBC 6.8. Sodium 142, potassium 4.5, chloride 102, bicarbonate 33. Microbiology; blood culture has been negative. IMPRESSION AND PLAN: Community-acquired pneumonia, chronic obstructive lung disease, history of deep vein thrombosis, pulmonary embolism, transient ischemic attack, anemia. From a Pulmonary point of view doing well. Continue bilevel positive airway pressure while sleeping. Keep head at 45 degree. Continue Coumadin. Discontinue Lovenox. Gastric prophylaxis. Follow up INR in the morning. May benefit from TICU type services. Thank you and we will follow with you. Danii Herrera MD
[2017-06-02 07:32] LABS: HEMOGLOBIN 12.2 g/dL (12.0-16.0); MEAN CELL VOLUME 87.1 fl (80.0-105.0); MEAN CORPUSCULAR HEMOGLOBIN 26.7 pg (25.0-35.0); MEAN CORPUSCULAR HGB CONC 30.7 g/dl (31.0-37.0); MEAN PLATELET VOLUME 9.1 fl (7.0-11.0); RBC 4.57 10^6/uL (3.5-6.1); RED CELL DISTRIBUTION WIDTH 16.2 % (11.5-14.5); WHITE BLOOD COUNT 5.6 10^3/ul (4.5-11.0)
[2017-06-02 07:44] LABS: INR 1.96 (0.93-1.08); PROTHROMBIN TIME 22.8 SECONDS (9.4-12.5)
[2017-06-02 08:13] LABS: BLOOD UREA NITROGEN 14 mg/dL (7-21); CALCIUM 9.3 mg/dL (8.4-10.5); GFR AFRICAN-AMERICAN > 60; GFR NON-AFRICAN AMERICAN > 60
[2017-06-02] MEDS: Pantoprazole 40 mg EC Tab PO SCH (08:15)
[2017-06-02] MEDS: cefTRIAXone 1 gm 1 GM/100 ML BAG IVPB SCH (10:36)
--- NOTE | 2017-06-02 23:09 | PN ---
DATE: 06/02/2017 SUBJECTIVE: She is comfortable in bed, in no acute distress, hypoxia decreased, she is still on oxygen by nasal cannula. She has left lower lobe pneumonia. History of extensive DVT in the past. Coumadin was recently interrupted because of the retinal surgery. She has developed hypoxia on the operating table for retinal surgery. Ambulating in the room. No chest pain, no shortness of breath. PHYSICAL EXAMINATION: GENERAL: Comfortable in bed, in no acute distress. VITAL SIGNS: Temperature 98.7, heart rate is 60 per minute, blood pressure 130/70, pulse ox is 99% with oxygen by nasal cannula. She was ambulated without oxygen. Oxygen saturation was 82% on room air. HEENT: Pallor positive. NECK: No lymphadenopathy. CHEST: Air entry present, equal bilaterally. No added sounds. CARDIOVASCULAR: S1, S2 normal. No murmur. No gallop. ABDOMEN: Soft, nontender. No hepatosplenomegaly. EXTREMITIES: No edema. SPINE: Nontender. SKIN: No petechiae. No rash. LABORATORY DATA: INR is 1.96. White count 5.6, hemoglobin 12.2, hematocrit 39.8, platelets 316. Creatinine is 0.8. ASSESSMENT AND PLAN: 1. Hypercoagulable state. 2. History of extensive bilateral pulmonary embolism. 3. Deep venous thrombosis, lower extremity. 4. Anemia, iron deficiency. PLAN: She is currently is on oxygen, IV antibiotics for the left lower lobe pneumonia. She is still desaturating to 82% of oxygen. I will consider CAT scan of the chest with PE protocol in the morning. She is on Lovenox and Coumadin and continue both until INR is more than 2. Thank you, Dr. Kohli, for allowing us to participate in Ms. Bates's care. Yoselin Lopez MD
[2017-06-03] MEDS: Enoxaparin 100 mg Syringe SC SCH ×2 (00:36→13:42)
[2017-06-03] MEDS: Albuterol-Ipratrop 3 mg / 0.5 (3 ml) UD IH SCH ×4 (01:50→20:24)
--- NOTE | 2017-06-03 02:16 | PN ---
DATE: PULMONARY PROGRESS NOTE REFERRING PHYSICIAN: Melvina Kohli MD. SUBJECTIVE: She is on bed to chair. Night was unremarkable, tolerated BiPAP well. Breathing is a little better. No nausea, no vomiting, no diarrhea. No leg pain or leg swelling. OBJECTIVE: GENERAL: In no acute distress. VITAL SIGNS: Temperature is 98, heart rate is 70, respiratory rate is 20, blood pressure 110/50, pulse ox 99% on CPAP. HEENT: Moist mucous membrane. Crowded airway. Mallampati score is IV. NECK: Supple. No JVD. LUNGS: Have a fair airflow with rhonchi. HEART: S1, S2. ABDOMEN: Soft and nontender. No organomegaly. EXTREMITIES: No edema. NEUROLOGICAL: Awake and follows simple command. MEDICATIONS: She is on Coreg 3.125 mg twice a day, Coumadin 5 mg given today, Cozaar 50 mg daily, DuoNeb q.6 hours, ferrous sulfate 324 mg twice a day, Fosamax 70 mg weekly, Lasix 40 mg daily, Lovenox 100 mg twice a day, Norvasc 2.5 mg daily, Protonix 40 mg daily, Rocephin 1 g IV daily, vitamin C 500 mg daily, Zithromax 500 mg daily. LABORATORY DATA: Shows hemoglobin 12.2, hematocrit 39.3, WBC 5.6, platelets 316. INR 1.96. Sodium 143, potassium 4.6, chloride 102, bicarbonate 31, BUN 14, creatinine 0.8, glucose is 102, calcium is 9.3. Microbiology: Blood culture has been negative. IMPRESSION AND PLAN: Community-acquired pneumonia, chronic obstructive lung disease, history of deep venous thrombosis, pulmonary embolism, transient ischemic attack, anemia. Continued to encourage BiPAP use. Keep head at 45 degrees. Antibiotics, gastric prophylaxis, anticoagulation. Follow up INR. May benefit from TICU-type services. Thank you and we will follow with you. Danii Herrera MD
[2017-06-03] MEDS: Pantoprazole 40 mg EC Tab PO SCH (05:54)
[2017-06-03] MEDS ORDERED: Iohexol 350 MG/100 ML VIAL ONE (07:09)
[2017-06-03 07:50] LABS: INR 2.96 (0.93-1.08); PROTHROMBIN TIME 34.8 SECONDS (9.4-12.5)
[2017-06-03] MEDS: cefTRIAXone 1 gm 1 GM/100 ML BAG IVPB SCH (10:32)
--- NOTE | 2017-06-03 14:40 | PN ---
DATE: 06/02/2017 SUBJECTIVE: The patient is a 71-year-old female. The patient is seen and examined at the bedside, sitting on the chair and having lunch. Looking comfortable. No nausea, vomiting, or diarrhea. No hematuria or hematochezia. No swelling of the legs. No chest pain. No palpitation. No headache. No dizziness. We ordered physical therapy. Plan is to take the patient to the TCU. PHYSICAL EXAMINATION VITAL SIGNS: Temperature 98.2, pulse 70, blood pressure 110/50, and respiratory rate 20. HEENT: Head: Normocephalic, atraumatic. Eyes: PERRLA. Extraocular movements are intact. Conjunctivae clear. Nose patent. Mucous membranes are moist. NECK: Supple. No carotid bruits. No JVD or thyromegaly. CHEST: Bilaterally symmetrical. HEART: S1 and S2 positive. LUNGS: Clear to auscultation. ABDOMEN: Soft. Bowel sounds are present. No organomegaly. EXTREMITIES: No edema. No cyanosis. NEUROLOGIC: The patient is awake and alert. Moving all 4 extremities with no focal deficits. LABORATORY DATA: White blood cells 5.6, hemoglobin 12.2, hematocrit 39.8, and platelets 316. Sodium 143, potassium 4.6, BUN 14, creatinine 0.8, hemoglobin A1c is 5.8, and iron is 23. MEDICATIONS: Coreg, Coumadin, Cozaar, DuoNeb, Feosol, Fosamax, Lasix, Lovenox, Norvasc, Protonix, Rocephin, and azithromycin. ASSESSMENT AND PLAN: Ms. Melani Bates is with a history of hypertension, chronic obstructive pulmonary disease, osteoarthritis, extensive pulmonary embolism, deep venous thrombosis, and iron deficiency anemia, who came with an exacerbation of chronic obstructive pulmonary disease, using Lovenox for bridging because INR is low. Currently getting antibiotics, azithromycin and ceftriaxone for pneumonia. Status post iron infusion for iron deficiency anemia, technical delivery manager is on the case. GI consult called to rule out the gastrointestinal cause of anemia. CAT scan of the chest done and reviewed by me. The patient has community-acquired pneumonia and a history of transient ischemic attack. Continue use of BiPAP, keep head elevated at 45 degrees. Gastric prophylaxis. Physical therapy ordered. We will try to take the patient to the TCU for deconditioning and for IV antibiotics. We will follow up. Melvina Kohli MD [facility] # [id number]
--- NOTE | 2017-06-03 16:03 | CP.PCM.PN ---
<Tari Williamson - Last Filed: 06/03/17 16:00> Subjective - Date & Time of Evaluation Date of Evaluation: 06/03/17 Time of Evaluation: 11:30 - Subjective Subjective: Chief Complaint: shortness of breath 71 yr female w/ history of HTN, CHF, COPD, PE/DVT (on coumadin), sleep apnea, TIA (2016), anemia, cataracts, & osteoarthritis. Dr. Mathis from [facility] in [place] diagnosed patient with L lower lobe pneumonia on and had a negative ultrasound for DVT. He noted that patient refused chest CT and admission. Pt was seen in our office on 05/29 with low O2 saturations and [place] [facility] Today, pt seen on her 4L oxygen via nasal cannula. She has no complaints. Denies any shortness of breath, chest pain, headache, fever, chills , diarrhea, constipation, paraesthesias, or urinary changes. Objective - Vital Signs/Intake and Output Vital Signs (last 24 hours): Temp Pulse Resp BP Pulse Ox 97.8 F 66 20 130/60 100 06/03/17 08:11 06/03/17 08:11 06/03/17 08:11 06/03/17 10:33 06/03/17 08:11 Intake and Output: 06/03/17 06/03/17 06:59 18:59 Intake Total 1140 Balance 1140 - Medications Medications: Current Medications Albuterol/Ipratropium (Duoneb 3 Mg/0.5 Mg (3 Ml) Ud) 3 ml IH [id number] [facility] Last Admin: 06/03/17 13:23 Dose: 3 ml Alendronate Sodium (Fosamax) 70 mg PO Q7D [facility] Last Admin: 06/03/17 05:53 Dose: 70 mg Amlodipine Besylate (Norvasc) 2.5 mg PO DAILY [facility] Last Admin: 06/03/17 10:33 Dose: 2.5 mg Ascorbic Acid (Vitamin C 500 Mg Tab) 500 mg PO DAILY [facility] Last Admin: 06/03/17 10:33 Dose: 500 mg Azithromycin (Zithromax) 500 mg PO DAILY [facility] PRN Reason: Protocol Last Admin: 06/03/17 10:32 Dose: 500 mg Carvedilol (Coreg) 3.125 mg PO BID [facility] Last Admin: 06/03/17 10:33 Dose: 3.125 mg Ferrous Sulfate (Feosol) 324 mg PO BID [facility] Last Admin: 06/03/17 10:33 Dose: 324 mg Furosemide (Lasix) 40 mg PO DAILY [facility] Last Admin: 06/03/17 10:33 Dose: 40 mg Losartan Potassium (Cozaar) 50 mg PO DAILY [facility] Last Admin: 06/03/17 10:33 Dose: 50 mg Pantoprazole Sodium (Protonix Ec Tab) 40 mg PO 0600 [facility] Last Admin: 06/03/17 05:54 Dose: 40 mg Warfarin Sodium (Coumadin) 5 mg PO 1800 [facility] PRN Reason: Protocol - Labs Labs: 06/02/17 07:00 06/02/17 07:00 PT 34.8 SECONDS (9.4-12.5) H 06/03/17 07:00 INR 2.96 (0.93-1.08) H 06/03/17 07:00 APTT 27.4 Seconds (25.1-36.5) 05/29/17 14:15 - Constitutional Appears: Well - Head Exam Head Exam: ATRAUMATIC, NORMAL INSPECTION, NORMOCEPHALIC - Eye Exam Eye Exam: EOMI, Normal appearance, PERRL Pupil Exam: NORMAL ACCOMODATION, PERRL - ENT Exam ENT Exam: Mucous Membranes Moist, Normal Exam - Neck Exam Neck Exam: Full ROM, Normal Inspection. absent: Lymphadenopathy - Respiratory Exam Respiratory Exam: Clear to Ausculation Bilateral, NORMAL BREATHING PATTERN - Cardiovascular Exam Cardiovascular Exam: REGULAR RHYTHM, +S1, +S2. absent: Murmur - GI/Abdominal Exam GI & Abdominal Exam: Soft, Normal Bowel Sounds. absent: Tenderness - Extremities Exam Extremities Exam: Full ROM, Normal Capillary Refill, Normal Inspection. absent : Joint Swelling, Pedal Edema - Back Exam Back Exam: NORMAL INSPECTION - Neurological Exam Neurological Exam: Alert, Awake, CN II-XII Intact, Normal Gait, Oriented x3 - Psychiatric Exam Psychiatric exam: Normal Affect, Normal Mood - Skin Skin Exam: Dry, Intact, Normal Color, Warm Assessment and Plan (1) Sleep apnea Status: Acute (2) Morbid (severe) obesity with alveolar hypoventilation Status: Acute (3) Anemia Status: Acute (4) Pneumonia Status: Acute (5) Hypoxia Status: Acute - Assessment and Plan (Free Text) Plan: CT scan of chest pending per Production Quality Manager. PO zithromax. Anemia: PO feosol and vit C started. On coumadin & lovenox. CPAP at HS. VTE/GI prophylaxis. PT/OT on board. Consults: Pulmo - Dr. Herrera Hematology - Dr. Lopez Reviewed: CT chest = patchy infiltrate posterior R lower lobe consistent w/ pneumonia CXR = L lower lobe perihilar infiltrate consistent w/ pneumonia ECG = NSR <Melvina Kohli - Last Filed: 06/04/17 13:13> Objective - Vital Signs/Intake and Output Vital Signs (last 24 hours): Temp Pulse Resp BP Pulse Ox 97 F L 90 21 142/94 H 91 L 06/03/17 21:00 06/03/17 21:00 06/03/17 21:00 06/04/17 11:27 06/03/17 21:00 Intake and Output: 06/04/17 06/04/17 06:59 18:59 Intake Total 240 Balance 240 - Medications Medications: Current Medications Albuterol/Ipratropium (Duoneb 3 Mg/0.5 Mg (3 Ml) Ud) 3 ml IH [id number] [facility] Last Admin: 06/04/17 07:46 Dose: 3 ml Alendronate Sodium (Fosamax) 70 mg PO Q7D [facility] Last Admin: 06/03/17 05:53 Dose: 70 mg Amlodipine Besylate (Norvasc) 2.5 mg PO DAILY [facility] Last Admin: 06/04/17 11:27 Dose: 2.5 mg Ascorbic Acid (Vitamin C 500 Mg Tab) 500 mg PO DAILY [facility] Last Admin: 06/04/17 11:27 Dose: 500 mg Carvedilol (Coreg) 3.125 mg PO BID [facility] Last Admin: 06/04/17 11:26 Dose: 3.125 mg Doxycycline Hyclate (Doryx) 100 mg PO Q12 [facility] PRN Reason: Protocol Last Admin: 06/04/17 11:27 Dose: 100 mg Ferrous Sulfate (Feosol) 324 mg PO BID [facility] Last Admin: 06/04/17 11:27 Dose: 324 mg Furosemide (Lasix) 40 mg PO DAILY [facility] Last Admin: 06/04/17 11:26 Dose: 40 mg Losartan Potassium (Cozaar) 50 mg PO DAILY [facility] Last Admin: 06/03/17 10:33 Dose: 50 mg Pantoprazole Sodium (Protonix Ec Tab) 40 mg PO 0600 [facility] Last Admin: 06/04/17 05:47 Dose: 40 mg Prednisone (Prednisone Tab) 20 mg PO DAILY [facility] Last Admin: 06/04/17 11:27 Dose: 20 mg Warfarin Sodium (Coumadin) 5 mg PO 1800 [facility] PRN Reason: Protocol Last Admin: 06/03/17 17:01 Dose: 5 mg - Labs Labs: 06/02/17 07:00 06/02/17 07:00 PT 36.9 SECONDS (9.4-12.5) H 06/04/17 10:20 INR 3.13 (0.93-1.08) H 06/04/17 10:20 APTT 27.4 Seconds (25.1-36.5) 05/29/17 14:15 Assessment and Plan - Assessment and Plan (Free Text) Plan: 71 yr female w/ history of HTN, CHF, COPD, PE/DVT (on coumadin), sleep apnea, TIA (2016), anemia, cataracts, & osteoarthritis. Dr. Mathis from [facility] in [place] diagnosed patient with L lower lobe pneumonia on and had a negative ultrasound for DVT. He noted that patient refused chest CT and admission. Pt was seen in our office on 05/29 with low O2 saturations and [place] [facility] Today, pt seen on her 4L oxygen via nasal cannula. She has no complaints. Denies any shortness of breath, chest pain, headache, fever, chills , diarrhea, constipation, paraesthesias, or urinary changes.pt is seen and examined at bed side , agreed all above , will f/u chart , meds and labs noted , will f.u
--- NOTE | 2017-06-04 00:48 | PN ---
DATE: 06/03/2017 PULMONARY PROGRESS NOTE REFERRING PHYSICIAN: Melvina Kohli MD SUBJECTIVE: She is out of bed to chair. Night was unremarkable. Ambulated with the help of therapist. Tolerating CPAP well. No headache. No rhinitis. Mild cough. No nausea. No vomiting, diarrhea, leg pain, or leg swelling. OBJECTIVE: GENERAL: In no acute distress. VITAL SIGNS: Temperature is 98, heart rate is 64, respiratory rate is 18, blood pressure 120/56, pulse ox dropped down to 82 on room air. HEENT: Moist mucous membrane. Crowded airway. Mallampati score is IV. NECK: Supple. No JVD. LUNGS: Has a few scattered rhonchi. HEART: S1, S2. ABDOMEN: Soft and nontender. No organomegaly. EXTREMITIES: There is no edema. NEUROLOGIC: Awake, alert, follows simple command. MEDICATIONS: She is on Coreg 3.125 mg twice a day, Coumadin 5 mg, Cozaar 50 mg daily, DuoNeb q.6 hours, ferrous sulfate 324 mg twice a day, Fosamax 70 mg weekly, Lasix 40 mg daily, Norvasc 2.5 mg daily, Protonix 40 mg daily, vitamin C 500 mg daily, and Zithromax 500 mg daily. LABORATORY DATA: Shows hemoglobin 12.2. INR 2.96. Microbiology, blood culture has been negative. IMPRESSION AND PLAN: Community-acquired pneumonia, chronic obstructive lung disease, history of deep venous thrombosis, pulmonary embolism, history of transient ischemic attacks, and anemia. Pulmonary point of view, doing okay. We will place her on doxycycline few more days and taper dose of prednisone, continue inhaled bronchodilator, room air will need supplement oxygen, gastric prophylaxis, anticoagulation, fall precautions. Thank you and we will follow with you. Danii Herrera MD
[2017-06-04] MEDS: Albuterol-Ipratrop 3 mg / 0.5 (3 ml) UD IH SCH ×4 (02:31→20:30)
[2017-06-04] MEDS: Pantoprazole 40 mg EC Tab PO SCH (05:47)
[2017-06-04 10:39] LABS: INR 3.13 (0.93-1.08); PROTHROMBIN TIME 36.9 SECONDS (9.4-12.5)
[2017-06-04 14:29] VITALS: RESP 20
[2017-06-04 21:01] LABS: INR 2.86 (0.93-1.08); PROTHROMBIN TIME 33.3 SECONDS (9.4-12.5)
--- NOTE | 2017-06-05 00:28 | PN ---
DATE: SUBJECTIVE: Patient is seen and examined at the bedside, sitting on the chair. was standing on the bedside also. Cough is better. Shortness of breath is better. Pulse oximetry is increasing. No nausea, vomiting, or diarrhea. No hematuria or hematochezia. No chest pain. No palpitation. No fever, no chills. PHYSICAL EXAMINATION: VITAL SIGNS: Temperature 97.6, pulse 64, blood pressure 140/58, respiratory rate 20, pulse oximetry is 95. HEENT: Head: Normocephalic, atraumatic. Eyes: PERRLA. Extraocular movements are intact. Conjunctivae clear. Nose: Patent. Mucous membranes are moist. NECK: Supple. No carotid bruits. No JVD or thyromegaly. CHEST: Bilaterally symmetrical. HEART: S1, S2 positive. LUNGS: Clear to auscultation. ABDOMEN: Soft. Bowel sounds are present. No organomegaly. EXTREMITIES: No edema. No cyanosis. NEUROLOGIC: Patient is awake and alert. Moving all four extremities. No focal deficits. MEDICATIONS: Coreg, Cozaar, doxycycline, albuterol, Feosol, Flomax, Lasix, Norvasc, prednisone, Protonix, ascorbic acid. LABORATORY DATA: White blood cells 5.6, hemoglobin 12.2, hematocrit 39.8, platelets 316. Sodium 143, potassium 4.6, BUN 14, creatinine 0.8, glucose 102. ASSESSMENT AND PLAN: Ms. Katty Bates is a 71-year-old lady with a history of anemia, got better; history of iron deficiency, improving; has community-acquired pneumonia; chronic obstructive lung disease; history of deep vein thrombosis; pulmonary embolism; history of transient ischemic attack. Discussion done with Dr. Herrera, giving tapering dose of steroids, bronchodilators, doxycycline. Discussion done with Dr. Herrera about treatment plan. Appreciated Dr. Herrera and Dr. Lopez's input. Patient is getting Coumadin. Today, INR is 3.13. Gastrointestinal and deep venous thrombosis prophylaxis. We will follow up. Melvina Kohli MD
--- NOTE | 2017-06-05 01:57 | PN ---
DATE: 06/04/2017 PULMONARY PROGRESS NOTE REFERRING PHYSICIAN: Melvina Kohli MD SUBJECTIVE: The patient is sitting up in a chair, having dinner. Feels better today. Pulse ox improved today. Tolerated the BiPAP well. No nausea, no vomiting, no diarrhea. No leg pain or leg swelling. OBJECTIVE: GENERAL: In no acute distress. VITAL SIGNS: Temperature is 98, heart rate is 64, respiratory rate is 20, blood pressure 141/68, pulse ox is 95% on room air. HEENT: Moist mucous membrane. Crowded airway. Mallampati score is IV. NECK: Supple. No JVD. LUNGS: Have a fair airflow with rhonchi. HEART: S1, S2. ABDOMEN: Soft and nontender. No organomegaly. EXTREMITIES: No edema. NEUROLOGIC: Awake, alert, follows simple command. MEDICATIONS: She is on Coreg 3.125 mg twice a day, Cozaar 50 mg daily, doxycycline 100 mg twice a day, DuoNeb q.6 hours, ferrous sulfate 324 mg twice a day, Fosamax 70 mg weekly, Lasix 40 mg daily, Norvasc 2.5 mg daily, prednisone 10 mg daily, Protonix 40 mg daily, vitamin C 500 mg daily. LABORATORY DATA: Shows hemoglobin yesterday 12.2. Today's INR 2.86. Microbiology; blood culture has been negative. IMPRESSION AND PLAN: Community-acquired pneumonia, chronic obstructive lung disease, history of deep venous thrombosis, pulmonary embolism, history of transient ischemic attacks, anemia, and sleep apnea syndrome. Case was discussed with the patient and in detail. Pulse ox reported today on nasal cannula was 97%; on 06/02/2017 at 17:45, it was 82% on room air. Case was discussed with Dr. Kohli in detail. We will reevaluate tomorrow. If pulse ox is above 90%, may go home without oxygen. Discontinue prednisone, inhaled bronchodilator. Follow up x-ray as outpatient. Pulmonary function test as outpatient. Fall precautions. Thank you and we will follow with you. Danii Herrera MD
[2017-06-05] MEDS: Pantoprazole 40 mg EC Tab PO SCH (06:45)
[2017-06-05] MEDS: Albuterol-Ipratrop 3 mg / 0.5 (3 ml) UD IH SCH ×2 (07:40→14:16)
[2017-06-05 09:16] VITALS: BP 115/64; O2SAT 92
[2017-06-05 09:36] VITALS: PULSE 70
[2017-06-05 14:01] VITALS: TEMP 97.5
--- NOTE | 2017-06-05 18:23 | CP.PCM.DIS ---
<Tari Williamson - Last Filed: 06/05/17 18:14> Provider - Provider Date of Admission: 05/29/17 15:01 Attending physician: Melvina Kohli MD Consults: Pulmo - Dr. Herrera Hematology - Dr. Lopez Time Spent in preparation of Discharge (in minutes): 40 Diagnosis - Discharge Diagnosis (1) Sleep apnea Status: Acute (2) Morbid (severe) obesity with alveolar hypoventilation Status: Acute (3) Anemia Status: Acute (4) Pneumonia Status: Acute (5) Hypoxia Status: Acute Hospital Course - Lab Results Lab Results: Most Recent Lab Values WBC 5.6 10^3/ul (4.5-11.0) 06/02/17 07:00 RBC 4.57 10^6/uL (3.5-6.1) 06/02/17 07:00 Hgb 12.2 g/dL (12.0-16.0) 06/02/17 07:00 Hct 39.8 % (36.0-48.0) 06/02/17 07:00 MCV 87.1 fl (80.0-105.0) 06/02/17 07:00 MCH 26.7 pg (25.0-35.0) 06/02/17 07:00 MCHC 30.7 g/dl (31.0-37.0) L 06/02/17 07:00 RDW 16.2 % (11.5-14.5) H 06/02/17 07:00 Plt Count 316 10^3/uL (120.0-450.0) 06/02/17 07:00 MPV 9.1 fl (7.0-11.0) 06/02/17 07:00 Gran % 63.6 % (50.0-68.0) 05/29/17 14:15 Lymph % (Auto) 21.0 % (22.0-35.0) L 05/29/17 14:15 Floyd % (Auto) 12.2 % (1.0-6.0) H 05/29/17 14:15 Eos % (Auto) 2.8 % (1.5-5.0) 05/29/17 14:15 Baso % (Auto) 0.4 % (0.0-3.0) 05/29/17 14:15 Gran # 4.36 (1.4-6.5) 05/29/17 14:15 Lymph # (Auto) 1.4 (1.2-3.4) 05/29/17 14:15 Floyd # (Auto) 0.8 (0.1-0.6) H 05/29/17 14:15 Eos # (Auto) 0.2 (0.0-0.7) 05/29/17 14:15 Baso # (Auto) 0.03 K/mm3 (0.0-2.0) 05/29/17 14:15 PT 33.3 SECONDS (9.4-12.5) H 06/04/17 20:28 INR 2.86 (0.93-1.08) H 06/04/17 20:28 APTT 27.4 Seconds (25.1-36.5) 05/29/17 14:15 D-Dimer, Quantitative 242 ng/mL (0-243) 05/29/17 14:15 pCO2 52 mm/Hg (35-45) H 05/29/17 14:35 pO2 72.0 mm/Hg (80-100) L 05/29/17 14:35 HCO3 29.4 mmol/L (21-28) H 05/29/17 14:35 ABG pH 7.36 (7.35-7.45) 05/29/17 14:35 ABG Total CO2 31.0 mmol.L (22-28) H 05/29/17 14:35 ABG O2 Saturation 97.7 % (95-98) 05/29/17 14:35 ABG O2 Content 14.7 ML/dl (15-23) L 05/29/17 14:35 ABG Base Excess 3.1 mmol/L (-2.0-3.0) H 05/29/17 14:35 ABG Hemoglobin 11.1 g/dL (11.7-17.4) L 05/29/17 14:35 ABG Carboxyhemoglobin 2.8 % (0.5-1.5) H 05/29/17 14:35 POC ABG HHb (Measured) 2.2 % (0-5) 05/29/17 14:35 ABG Methemoglobin 0.9 % (0.0-3.0) 05/29/17 14:35 ABG O2 Capacity 15.0 mL/dl (16-24) L 05/29/17 14:35 VBG pH 7.36 (7.32-7.43) 05/29/17 14:15 VBG pCO2 59.0 (40-60) 05/29/17 14:15 VBG HCO3 33.3 mmol/l (21-28) H 05/29/17 14:15 VBG Total CO2 35.1 mmol.L (22-28) H 05/29/17 14:15 VBG O2 Sat (Calc) 93.3 % (40-65) H 05/29/17 14:15 VBG Base Excess 6.0 mmol/L (0.0-2.0) H 05/29/17 14:15 VBG Potassium 5.2 mmol/L (3.6-5.2) 05/29/17 14:15 Hgb O2 Saturation 94.0 % (95.0-98.0) L 05/29/17 14:35 Sodium 136.0 mmol/L (132-148) 05/29/17 14:15 Chloride 105.0 mmol/L (98-107) 05/29/17 14:15 Glucose 125 mg/dl (65-105) H 05/29/17 14:15 Lactate 1.4 mmol/L (0.7-2.1) 05/29/17 14:15 FiO2 30.0 % 05/29/17 14:35 Sodium 143 mmol/L (132-148) 06/02/17 07:00 Potassium 4.6 mmol/L (3.6-5.0) 06/02/17 07:00 Chloride 102 mmol/L (98-107) 06/02/17 07:00 Carbon Dioxide 31 mmol/L (21-33) 06/02/17 07:00 Anion Gap 15 (10-20) 06/02/17 07:00 BUN 14 mg/dL (7-21) 06/02/17 07:00 Creatinine 0.8 mg/dl (0.7-1.2) 06/02/17 07:00 Est GFR ( Amer) > 60 06/02/17 07:00 Est GFR (Non-Af Amer) > 60 06/02/17 07:00 Random Glucose 102 mg/dL (70-110) 06/02/17 07:00 Hemoglobin A1c 5.8 % (4.2-6.5) 05/31/17 06:45 Calcium 9.3 mg/dL (8.4-10.5) 06/02/17 07:00 Iron 23 ug/dL (45-180) L 05/31/17 00:15 TIBC 376 ug/dL (265-497) 05/31/17 00:15 % Saturation 6 % (20-55) L 05/31/17 00:15 Total Bilirubin 0.4 mg/dL (0.2-1.3) 05/29/17 14:15 AST 27 U/L (14-36) 05/29/17 14:15 ALT 16 U/L (7-56) 05/29/17 14:15 Alkaline Phosphatase 83 U/L (38-126) 05/29/17 14:15 Lactate Dehydrogenase 566 U/L (333-699) 05/29/17 14:15 Total Creatine Kinase 60 U/L (35-230) 05/29/17 14:15 Troponin I < 0.01 ng/mL D 05/29/17 14:15 NT-Pro-B Natriuret Pep 1010 pg/mL (0-450) H 05/29/17 14:15 Total Protein 7.1 g/dL (5.8-8.3) 05/29/17 14:15 Albumin 3.6 g/dL (3.0-4.8) 05/29/17 14:15 Globulin 3.5 gm/dL 05/29/17 14:15 Albumin/Globulin Ratio 1.0 (1.1-1.8) L 05/29/17 14:15 Triglycerides 88 mg/dL (35-160) 05/31/17 06:45 Cholesterol 192 mg/dL (130-200) 05/31/17 06:45 LDL Cholesterol Direct 129 mg/dL (0-129) 05/31/17 06:45 HDL Cholesterol 41 mg/dL (29-60) 05/31/17 06:45 Vitamin B12 287 pg/mL (239-931) 05/31/17 06:45 Folate 14.9 ng/mL 05/31/17 06:45 TSH 3rd Generation 1.80 mIU/mL (0.46-4.68) 05/31/17 06:45 Venous Blood Potassium 5.2 mmol/L (3.6-5.2) 05/29/17 14:15 Urine Color Yellow (YELLOW) 05/29/17 16:05 Urine Appearance Clear (CLEAR) 05/29/17 16:05 Urine pH 6.5 (4.7-8.0) 05/29/17 16:05 Ur Specific [place] <= 1.005 (1.005-1.035) 05/29/17 16:05 Urine Protein Negative mg/dL (<30 mg/dL) 05/29/17 16:05 Urine Glucose (UA) Negative mg/dL (NEGATIVE) 05/29/17 16:05 Urine Ketones Negative mg/dL (NEGATIVE) 05/29/17 16:05 Urine Blood Negative (NEGATIVE) 05/29/17 16:05 Urine Nitrate Negative (NEGATIVE) 05/29/17 16:05 Urine Bilirubin Negative (NEGATIVE) 05/29/17 16:05 Urine Urobilinogen 0.2 E.U./dL (<1 E.U./dL) 05/29/17 16:05 Ur Leukocyte Esterase Negative Karen/uL (NEGATIVE) 05/29/17 16:05 Influenza Typ A,B (EIA) Negative for flu a/b (NEGATIVE) 05/29/17 14:15 - Hospital Course Hospital Course: 71 yr female w/ history of HTN, CHF, COPD, PE/DVT (on coumadin), sleep apnea, TIA (2016), anemia, cataracts, & osteoarthritis. Dr. Mathis from [facility] in [place] diagnosed patient with L lower lobe pneumonia on and with a negative ultrasound for DVT. He noted that patient refused chest CT and admission. Pt was then seen in our office on 05/29 with low O2 saturations and sent to [facility]. Pt was treated for R lower lobe pneumonia. CPAP at HS. At home, pt will continue oxygen via nasal cannula. Anemia treated with PO feosol and vit C. She is discharged with coumadin, a medrol dose pack, and instructions to complete course of doxycycline antibiotics. Patient cleared for discharge with follow up in our office in 2 days. Reviewed: CT chest = patchy infiltrate posterior R lower lobe consistent w/ pneumonia CXR = L lower lobe perihilar infiltrate consistent w/ pneumonia ECG = NSR - Date & Time of H&P Date of H&P: 06/05/17 Time of H&P: 11:40 Discharge Exam - Head Exam Head Exam: ATRAUMATIC, NORMAL INSPECTION, NORMOCEPHALIC Discharge Plan - Discharge Medications Prescriptions: Ascorbic Acid [Vitamin C 500 mg Tab] 500 mg PO DAILY 30 Days tab Doxycycline Hyclate [Doryx] 100 mg PO Q12 5 Days #10 cap Ferrous Sulfate [Feosol] 324 mg PO BID 14 Days #28 ect Methylprednisolone [Medrol Dose Pack (21 tabs)] 4 mg PO DAILY #21 mg - Follow Up Plan Condition: GOOD Disposition: HOME/ ROUTINE Instructions: Pneumonia, Adult (DC), Oxygen Therapy, Adult (DC), Flu Vaccine Additional Instructions: Follow up with director employee communications in one week if having any increased weakness or Shortness of breath go to nearest ER. <Melvina Kohli - Last Filed: 06/06/17 19:33> Provider - Provider Date of Admission: 05/29/17 15:01 Attending physician: Melvina Kohli MD Hospital Course - Lab Results Lab Results: Most Recent Lab Values WBC 5.6 10^3/ul (4.5-11.0) 06/02/17 07:00 RBC 4.57 10^6/uL (3.5-6.1) 06/02/17 07:00 Hgb 12.2 g/dL (12.0-16.0) 06/02/17 07:00 Hct 39.8 % (36.0-48.0) 06/02/17 07:00 MCV 87.1 fl (80.0-105.0) 06/02/17 07:00 MCH 26.7 pg (25.0-35.0) 06/02/17 07:00 MCHC 30.7 g/dl (31.0-37.0) L 06/02/17 07:00 RDW 16.2 % (11.5-14.5) H 06/02/17 07:00 Plt Count 316 10^3/uL (120.0-450.0) 06/02/17 07:00 MPV 9.1 fl (7.0-11.0) 06/02/17 07:00 Gran % 63.6 % (50.0-68.0) 05/29/17 14:15 Lymph % (Auto) 21.0 % (22.0-35.0) L 05/29/17 14:15 Floyd % (Auto) 12.2 % (1.0-6.0) H 05/29/17 14:15 Eos % (Auto) 2.8 % (1.5-5.0) 05/29/17 14:15 Baso % (Auto) 0.4 % (0.0-3.0) 05/29/17 14:15 Gran # 4.36 (1.4-6.5) 05/29/17 14:15 Lymph # (Auto) 1.4 (1.2-3.4) 05/29/17 14:15 Floyd # (Auto) 0.8 (0.1-0.6) H 05/29/17 14:15 Eos # (Auto) 0.2 (0.0-0.7) 05/29/17 14:15 Baso # (Auto) 0.03 K/mm3 (0.0-2.0) 05/29/17 14:15 PT 33.3 SECONDS (9.4-12.5) H 06/04/17 20:28 INR 2.86 (0.93-1.08) H 06/04/17 20:28 APTT 27.4 Seconds (25.1-36.5) 05/29/17 14:15 D-Dimer, Quantitative 242 ng/mL (0-243) 05/29/17 14:15 pCO2 52 mm/Hg (35-45) H 05/29/17 14:35 pO2 72.0 mm/Hg (80-100) L 05/29/17 14:35 HCO3 29.4 mmol/L (21-28) H 05/29/17 14:35 ABG pH 7.36 (7.35-7.45) 05/29/17 14:35 ABG Total CO2 31.0 mmol.L (22-28) H 05/29/17 14:35 ABG O2 Saturation 97.7 % (95-98) 05/29/17 14:35 ABG O2 Content 14.7 ML/dl (15-23) L 05/29/17 14:35 ABG Base Excess 3.1 mmol/L (-2.0-3.0) H 05/29/17 14:35 ABG Hemoglobin 11.1 g/dL (11.7-17.4) L 05/29/17 14:35 ABG Carboxyhemoglobin 2.8 % (0.5-1.5) H 05/29/17 14:35 POC ABG HHb (Measured) 2.2 % (0-5) 05/29/17 14:35 ABG Methemoglobin 0.9 % (0.0-3.0) 05/29/17 14:35 ABG O2 Capacity 15.0 mL/dl (16-24) L 05/29/17 14:35 VBG pH 7.36 (7.32-7.43) 05/29/17 14:15 VBG pCO2 59.0 (40-60) 05/29/17 14:15 VBG HCO3 33.3 mmol/l (21-28) H 05/29/17 14:15 VBG Total CO2 35.1 mmol.L (22-28) H 05/29/17 14:15 VBG O2 Sat (Calc) 93.3 % (40-65) H 05/29/17 14:15 VBG Base Excess 6.0 mmol/L (0.0-2.0) H 05/29/17 14:15 VBG Potassium 5.2 mmol/L (3.6-5.2) 05/29/17 14:15 Hgb O2 Saturation 94.0 % (95.0-98.0) L 05/29/17 14:35 Sodium 136.0 mmol/L (132-148) 05/29/17 14:15 Chloride 105.0 mmol/L (98-107) 05/29/17 14:15 Glucose 125 mg/dl (65-105) H 05/29/17 14:15 Lactate 1.4 mmol/L (0.7-2.1) 05/29/17 14:15 FiO2 30.0 % 05/29/17 14:35 Sodium 143 mmol/L (132-148) 06/02/17 07:00 Potassium 4.6 mmol/L (3.6-5.0) 06/02/17 07:00 Chloride 102 mmol/L (98-107) 06/02/17 07:00 Carbon Dioxide 31 mmol/L (21-33) 06/02/17 07:00 Anion Gap 15 (10-20) 06/02/17 07:00 BUN 14 mg/dL (7-21) 06/02/17 07:00 Creatinine 0.8 mg/dl (0.7-1.2) 06/02/17 07:00 Est GFR ( Amer) > 60 06/02/17 07:00 Est GFR (Non-Af Amer) > 60 06/02/17 07:00 Random Glucose 102 mg/dL (70-110) 06/02/17 07:00 Hemoglobin A1c 5.8 % (4.2-6.5) 05/31/17 06:45 Calcium 9.3 mg/dL (8.4-10.5) 06/02/17 07:00 Iron 23 ug/dL (45-180) L 05/31/17 00:15 TIBC 376 ug/dL (265-497) 05/31/17 00:15 % Saturation 6 % (20-55) L 05/31/17 00:15 Total Bilirubin 0.4 mg/dL (0.2-1.3) 05/29/17 14:15 AST 27 U/L (14-36) 05/29/17 14:15 ALT 16 U/L (7-56) 05/29/17 14:15 Alkaline Phosphatase 83 U/L (38-126) 05/29/17 14:15 Lactate Dehydrogenase 566 U/L (333-699) 05/29/17 14:15 Total Creatine Kinase 60 U/L (35-230) 05/29/17 14:15 Troponin I < 0.01 ng/mL D 05/29/17 14:15 NT-Pro-B Natriuret Pep 1010 pg/mL (0-450) H 05/29/17 14:15 Total Protein 7.1 g/dL (5.8-8.3) 05/29/17 14:15 Albumin 3.6 g/dL (3.0-4.8) 05/29/17 14:15 Globulin 3.5 gm/dL 05/29/17 14:15 Albumin/Globulin Ratio 1.0 (1.1-1.8) L 05/29/17 14:15 Triglycerides 88 mg/dL (35-160) 05/31/17 06:45 Cholesterol 192 mg/dL (130-200) 05/31/17 06:45 LDL Cholesterol Direct 129 mg/dL (0-129) 05/31/17 06:45 HDL Cholesterol 41 mg/dL (29-60) 05/31/17 06:45 Vitamin B12 287 pg/mL (239-931) 05/31/17 06:45 Folate 14.9 ng/mL 05/31/17 06:45 TSH 3rd Generation 1.80 mIU/mL (0.46-4.68) 05/31/17 06:45 Venous Blood Potassium 5.2 mmol/L (3.6-5.2) 05/29/17 14:15 Urine Color Yellow (YELLOW) 05/29/17 16:05 Urine Appearance Clear (CLEAR) 05/29/17 16:05 Urine pH 6.5 (4.7-8.0) 05/29/17 16:05 Ur Specific [place] <= 1.005 (1.005-1.035) 05/29/17 16:05 Urine Protein Negative mg/dL (<30 mg/dL) 05/29/17 16:05 Urine Glucose (UA) Negative mg/dL (NEGATIVE) 05/29/17 16:05 Urine Ketones Negative mg/dL (NEGATIVE) 05/29/17 16:05 Urine Blood Negative (NEGATIVE) 05/29/17 16:05 Urine Nitrate Negative (NEGATIVE) 05/29/17 16:05 Urine Bilirubin Negative (NEGATIVE) 05/29/17 16:05 Urine Urobilinogen 0.2 E.U./dL (<1 E.U./dL) 05/29/17 16:05 Ur Leukocyte Esterase Negative Karen/uL (NEGATIVE) 05/29/17 16:05 Influenza Typ A,B (EIA) Negative for flu a/b (NEGATIVE) 05/29/17 14:15 - Hospital Course Hospital Course: pt is seen and examined at bed side , looking comfortable ,agreed all above . chart, labs and meds noted , will f/u
--- NOTE | 2017-06-05 19:20 | PN ---
DATE: PULMONARY PROGRESS NOTE REFERRING PHYSICIAN: Melvina Kohli MD SUBJECTIVE: She is sitting in the side of the bed. Night was unremarkable. Tolerated her CPAP well. No headache. No rhinitis. Cough is better. No nausea. No vomiting or diarrhea. No leg pain or leg swelling. OBJECTIVE: GENERAL: In no acute distress. VITAL SIGNS: Temperature is 98, heart rate is 70, respiratory rate is 20, blood pressure 115/64, pulse ox 92% on nasal cannula. HEENT: Moist mucous membrane. Crowded airway. Mallampati score is IV. NECK: Supple. No JVD. LUNGS: Has a fair air flow with rhonchi. HEART: S1 and S2. ABDOMEN: Soft and nontender. No organomegaly. EXTREMITIES: No edema. NEUROLOGIC: Awake and alert. Follows simple commands. MEDICATIONS: She is on Coreg 3.125 mg twice a day, Coumadin 5 mg will be given tomorrow, Cozaar 50 mg daily, doxycycline 100 mg twice a day, DuoNeb q. 6 hours, ferrous sulfate 324 mg twice a day, Fosamax 70 mg weekly, Lasix 40 mg daily, Norvasc 2.5 mg daily, prednisone 10 mg daily, Protonix 40 mg daily, vitamin C 500 mg daily. LABORATORY DATA: Shows hemoglobin 12.2, hematocrit 39.8, WBC 5.6, platelets 316. Sodium 143, potassium 4.6, chloride 102, bicarbonate 31, BUN 14, creatinine 0.8, glucose 102, calcium is 9.3. Microbiology, blood culture has been negative. IMPRESSION AND PLAN: Chronic obstructive lung disease, community-acquired pneumonia, deep venous thrombosis, pulmonary embolism, history of transient ischemic attack in the past, anemia, sleep apnea syndrome. Pulmonary point of view, she is doing good. She is being discharge home. Discontinue prednisone. Continue CPAP while sleeping. Supplement oxygen 2 liters of nasal cannula during the day time. Outpatient pulmonary function tests. May continue to take her home inhalers. Thank you and we will follow with you. Danii Herrera MD
== END 2017-06-05 14:53 | disposition home or self-care (01) | DRG 194 ==
LOC: ED 13:33 → ERH 15:01 → 5RSO 20:10
PROVIDERS: ADMIT Internal Medicine; ATTEND Internal Medicine
DX: J18.9 Pneumonia, unspecified organism (principal); E66.2 Morbid (severe) obesity with alveolar hypoventilation; D68.59 Other primary thrombophilia; I11.0 Hypertensive heart disease with heart failure; I50.9 Heart failure, unspecified; D50.9 Iron deficiency anemia, unspecified; F17.200 Nicotine dependence, unspecified, uncomplicated; J44.0 Chronic obstructive pulmonary disease with (acute) lower respiratory infection; G47.30 Sleep apnea, unspecified; R09.02 Hypoxemia; I73.9 Peripheral vascular disease, unspecified; Z79.01 Long term (current) use of anticoagulants; Z79.899 Other long term (current) drug therapy; Z86.711 Personal history of pulmonary embolism; Z86.718 Personal history of other venous thrombosis and embolism; Z86.73 Personal history of transient ischemic attack (TIA), and cerebral infarction without residual deficits; Z87.440 Personal history of urinary (tract) infections

== ENCOUNTER 2017-08-19 10:44 | Emergency (ER) | payer MEDICARE ==
[2017-08-19 11:27] VITALS: BMI 36.9
[2017-08-19 11:31] VITALS: TEMP 98.4
[2017-08-19] MEDS ORDERED: Lidocaine 1% Inj (20ml) ONE (11:38)
--- NOTE | 2017-08-19 11:49 | ED PDOC ---
Arrival/HPI - General Chief Complaint: Abnormal Skin Integrity Time Seen by Provider: 08/19/17 11:27 Historian: Patient, Spouse - History of Present Illness Time/Duration: Other (3 days) Symptom Onset: Gradual Symptom Course: Worsening Quality: Aching Severity Level: Mild Activities at Onset: Rest Associated Symptoms (Text): 08/19/17 11:46 Patient complains of a three-day history of a posterior neck mass. It is been enlarging. She believes it began with an insect bite. She has approximately a 2 cm abscess. Past Medical History - Infectious Disease Hx of Infectious Diseases: None - Tetanus Immunization Tetanus Immunization: Unknown - Reproductive Menopause: Yes - Cardiac Hx Cardiac Disorders: Yes Hx Congestive Heart Failure: Yes Hx Hypertension: Yes - Pulmonary Hx Chronic Obstructive Pulmonary Disease (COPD): Yes - Neurological HX Cerebrovascular Accident: Yes (TIA) - HEENT Hx HEENT Disorder: Yes Hx Cataracts: Yes Hx Deafness: Yes - Renal Hx Renal Disorder: No - Endocrine/Metabolic Hx Endocrine Disorders: No - Hematological/Oncological Hx Blood Disorders: Yes Hx Anemia: Yes - Integumentary Hx Dermatological Disorder: No - Musculoskeletal/Rheumatological Hx Arthritis: Yes - Gastrointestinal Hx Gastrointestinal Disorders: Yes - Genitourinary/Gynecological Hx Genitourinary Disorders: Yes (URGENCY) Hx Incontinence: Yes (only when on water pill) Hx Urinary Tract Infection: Yes - Psychiatric Hx Psychophysiologic Disorder: No Hx Substance Use: No - Past Surgical History Past Surgical History: No Previous - Anesthesia Hx Anesthesia: Yes Hx Anesthesia Reactions: No Hx Malignant Hyperthermia: No - Suicidal Assessment Feels Threatened In Home Enviroment: No Family/Social History - Physician Review Nursing Documentation Reviewed: Yes Family/Social History: Unknown Family HX Smoking Status: Former Smoker Hx Alcohol Use: No Hx Substance Use: No Allergies/Home Meds Allergies/Adverse Reactions: Allergies No Known Allergies Allergy (Verified 08/19/17 11:29) Home Medications: Home Meds Medication Instructions Recorded Confirmed Alendronate [Fosamax] 70 mg PO MON 05/29/17 08/19/17 Carvedilol [Coreg] 3.125 mg PO BID 05/29/17 08/19/17 Fluticasone/Salmeterol [Advair 1 each IH PRN PRN 05/29/17 08/19/17 250-50 Diskus] Furosemide [Lasix] 40 mg PO DAILY 05/29/17 08/19/17 Valsartan [Diovan] 80 mg PO DAILY 05/29/17 08/19/17 amLODIPine [Norvasc] 2.5 mg PO DAILY 05/29/17 08/19/17 Review of Systems - Physician Review All systems were reviewed & negative as marked: Yes Physical Exam Vital Signs Temp Pulse Resp BP Pulse Ox 08/19/17 11:30 98.4 F 81 18 112/51 L 98 Temperature: Afebrile Blood Pressure: Normal Pulse: Regular Respiratory Rate: Normal Appearance: Positive for: Well-Appearing, Non-Toxic, Comfortable Pain Distress: None Mental Status: Positive for: Alert and Oriented X 3 - Systems Exam Skin: Present: Warm, Dry, Normal Color, Abscess (Approximately 2 cm posterior midline neck abscess. Mobile and fluctuant). No: Rashes Medical Decision Making ED Course and Treatment: 08/19/17 11:47 Incision and drainage. The abscess was prepped and draped in the usual sterile fashion using Betadine. 1% plain local lidocaine anesthesia was injected. The abscess was incised with a #11 blade. Purulent material was expressed. Iodoform gauze packing was placed. Sterile dressing was applied. Patient tolerated the procedure well. Disposition/Present on Arrival - Present on Arrival Any Indicators Present on Arrival: No History of DVT/PE: Yes History of Uncontrolled Diabetes: No Urinary Catheter: No History of Decub. Ulcer: No History Surgical Site Infection Following: None - Disposition Have Diagnosis and Disposition been Completed?: Yes Diagnosis: Abscess Disposition: HOME/ ROUTINE Disposition Time: 11:48 Patient Plan: Discharge Condition: GOOD Discharge Instructions (ExitCare): Abscess Incision and Drainage (DC) Additional Instructions: Packing removal in 2 days. Follow-up with PMD. Follow-up in the ER as needed. Prescriptions: Amoxicillin/Clavulanate [Augmentin 875 MG-125 MG] 1 tab PO Q12 #20 tab
[2017-08-19 12:28] VITALS: BP 115/66; PULSE 78; RESP 17; O2SAT 99
== END 2017-08-19 12:27 | disposition home or self-care (01) ==
LOC: ED 10:44
DX: L02.11 Cutaneous abscess of neck (principal); I50.9 Heart failure, unspecified; I10 Essential (primary) hypertension; J44.9 Chronic obstructive pulmonary disease, unspecified; Z87.891 Personal history of nicotine dependence

== ENCOUNTER 2017-08-21 10:38 | Emergency (ER) | payer MEDICARE ==
[2017-08-21 10:38] VITALS: BMI 36.9
[2017-08-21 14:20] VITALS: TEMP 98.6
--- NOTE | 2017-08-21 14:43 | ED PDOC ---
Arrival/HPI - General Chief Complaint: Wound Check Time Seen by Provider: 08/21/17 11:03 - History of Present Illness Narrative History of Present Illness (Text): 08/21/17 14:39 Patient is a 71 year old female who was here 2 days ago for I&D of abscess on the posterior neck. Patient denies any complications and says she has had minimal pain. Patient says she needs to have her packing removed. She denies any fever, chills, erythema, and abnormal swelling/numbness/tingling in the area. (Zhane Dior) Past Medical History - Infectious Disease Hx of Infectious Diseases: None - Tetanus Immunization Tetanus Immunization: Unknown - Reproductive Menopause: Yes - Cardiac Hx Cardiac Disorders: Yes Hx Congestive Heart Failure: Yes Hx Hypertension: Yes - Pulmonary Hx Chronic Obstructive Pulmonary Disease (COPD): Yes - Neurological HX Cerebrovascular Accident: Yes (TIA) - HEENT Hx HEENT Disorder: Yes Hx Cataracts: Yes Hx Deafness: Yes - Renal Hx Renal Disorder: No - Endocrine/Metabolic Hx Endocrine Disorders: No - Hematological/Oncological Hx Blood Disorders: Yes Hx Anemia: Yes - Integumentary Hx Dermatological Disorder: No - Musculoskeletal/Rheumatological Hx Arthritis: Yes - Gastrointestinal Hx Gastrointestinal Disorders: Yes - Genitourinary/Gynecological Hx Genitourinary Disorders: Yes (URGENCY) Hx Incontinence: Yes (only when on water pill) Hx Urinary Tract Infection: Yes - Psychiatric Hx Psychophysiologic Disorder: No Hx Substance Use: No - Past Surgical History Past Surgical History: No Previous - Anesthesia Hx Anesthesia: Yes Hx Anesthesia Reactions: No Hx Malignant Hyperthermia: No - Suicidal Assessment Feels Threatened In Home Enviroment: No Family/Social History Family/Social History: Unknown Family HX Smoking Status: Former Smoker Hx Alcohol Use: No Hx Substance Use: No Allergies/Home Meds Allergies/Adverse Reactions: Allergies No Known Allergies Allergy (Verified 08/19/17 11:29) Home Medications: Home Meds Medication Instructions Recorded Confirmed RX: Alendronate [Fosamax] 70 mg PO MON 05/29/17 08/19/17 RX: Carvedilol [Coreg] 3.125 mg PO BID 05/29/17 08/19/17 RX: Fluticasone/Salmeterol [Advair 1 each IH PRN PRN 05/29/17 08/19/17 250-50 Diskus] RX: Furosemide [Lasix] 40 mg PO DAILY 05/29/17 08/19/17 RX: Valsartan [Diovan] 80 mg PO DAILY 05/29/17 08/19/17 RX: amLODIPine [Norvasc] 2.5 mg PO DAILY 05/29/17 08/19/17 Review of Systems - Physician Review All systems were reviewed & negative as marked: Yes - Review of Systems Constitutional: Normal. absent: Fatigue, Fevers, Night Sweats Respiratory: Normal. absent: SOB Cardiovascular: Normal. absent: Chest Pain, Palpitations, Calf Pain, DOLAN Gastrointestinal: Normal. absent: Abdominal Pain, Constipation, Diarrhea, Nausea, Vomiting Musculoskeletal: Normal, Neck Pain (minimal appropriate post I&D tenderness). absent: Arthralgias, Back Pain Skin: Other (no erythema surrounding I&D site). absent: Rash Neurological: Normal. absent: Headache, Dizziness Hemo/Lymphatic: Normal Physical Exam Temperature: Afebrile Blood Pressure: Normal Pulse: Regular Respiratory Rate: Normal Appearance: Positive for: Well-Appearing, Non-Toxic, Comfortable Pain Distress: None Mental Status: Positive for: Alert and Oriented X 3 - Systems Exam Head: Present: Atraumatic, Normocephalic Pupils: Present: PERRL Extroacular Muscles: Present: EOMI Conjunctiva: Present: Normal Mouth: Present: Moist Mucous Membranes Neck: Present: Normal Range of Motion, MIDLINE TENDERNESS (at the base of the occiput where the abscess ) Respiratory/Chest: Present: Clear to Auscultation, Good Air Exchange. No: Respiratory Distress, Accessory Muscle Use Cardiovascular: Present: Regular Rate and Rhythm, Normal S1, S2. No: Murmurs Upper Extremity: Present: Normal Inspection Lower Extremity: Present: Normal Inspection Neurological: Present: GCS=15, Speech Normal Skin: Present: Warm, Dry, Abscess (post I&D on the posterior neck without erythema or drainage). No: Rashes Psychiatric: Present: Alert, Oriented x 3, Normal Insight, Normal Concentration Vital Signs Temp Pulse Resp BP Pulse Ox 08/21/17 14:15 98.6 F 78 18 138/76 94 L Medical Decision Making ED Course and Treatment: 08/21/17 14:47 Packing removed and no purulent drainage could be expressed from the abscess. Re -bandaged and given instructions to continue augmentin given here in the ED 2 days ago. (Zhane Dior) Impression: In agreement with resident note which contains more details about the patient. Patient was seen and evaluated with resident. Came up with plan and treatment together. Pt presented for packing removal s/p posterior neck abscess I&D 2 days prior. Plan: -- Packing removal -- Reassess and disposition (Ishmael Nguyen) - PA / [employer] / Resident Statement MD/DO has reviewed & agrees with the documentation as recorded. MD/DO has examined the patient and agrees with the treatment plan. Disposition/Present on Arrival - Present on Arrival Any Indicators Present on Arrival: Yes History of DVT/PE: Yes History of Uncontrolled Diabetes: No Urinary Catheter: No History of Decub. Ulcer: No History Surgical Site Infection Following: None - Disposition Have Diagnosis and Disposition been Completed?: Yes Disposition Time: 14:49 Patient Plan: Discharge - Disposition Diagnosis: Abscess packing removal Disposition: HOME/ ROUTINE Condition: STABLE Additional Instructions: Please continue augmentin given in ED 2 days ago until completion. You may change the dressing as needed and shower as you normally would. Please follow up with your primary care doctor in 1-2 days for further coordination of your care, as you may need referral to a general surgeon to prevent further episodes of this. Referrals: Melvina Kohli MD [Primary Care Provider] - Follow up with primary Forms: Velti (Slovak)
[2017-08-21 15:22] VITALS: BP 124/77; PULSE 80; O2SAT 99
[2017-08-21 18:44] VITALS: RESP 16
== END 2017-08-21 15:23 | disposition home or self-care (01) ==
LOC: ED 10:38
DX: Z48.00 Encounter for change or removal of nonsurgical wound dressing (principal); L02.11 Cutaneous abscess of neck; I50.9 Heart failure, unspecified; I10 Essential (primary) hypertension; Z87.891 Personal history of nicotine dependence

== ENCOUNTER 2017-11-02 11:55 | Inpatient (IN) | payer MEDICARE, OTHER ==
[2017-11-02 12:24] VITALS: BMI 36.3
--- NOTE | 2017-11-02 12:55 | ED PDOC ---
Arrival/HPI - General Chief Complaint: Respiratory Distress Time Seen by Provider: 11/02/17 12:40 Historian: Patient - History of Present Illness Narrative History of Present Illness (Text): 11/02/17 12:50 71 year old female, with past medical history of PE, DVT, hyperlipidemia, hypertension, diabetes mellitus, sleep apnea, and CHF, presents to the Emergency department for evaluation of increased dyspnea on exertion since 2 days. Patient states the symptoms began 2 days ago when she would frequently fall asleep after 15 minutes of exertion. Patient states her oxygen saturation has been fluctuating from low to high associated with increased somnolence and non productive cough. Patient states she visited Dr. Dumont for the presented symptoms and was referred to the Emergency department for evaluation. Patient denies any fever, chills, nausea, vomiting, diarrhea. abdominal pain, chest pain , lower extremity swelling or any other complaints. PMD: Dr. Dumont Time/Duration: < week (2 days) Symptom Onset: Gradual Symptom Course: Unchanged Activities at Onset: Light Context: Home Past Medical History - Provider Review Nursing Documentation Reviewed: Yes - Infectious Disease Hx of Infectious Diseases: None - Tetanus Immunization Tetanus Immunization: Unknown - Reproductive Menopause: Yes - Cardiac Hx Cardiac Disorders: Yes Hx Congestive Heart Failure: Yes Hx Hypertension: Yes - Pulmonary Hx Chronic Obstructive Pulmonary Disease (COPD): Yes - Neurological HX Cerebrovascular Accident: Yes (TIA) - HEENT Hx HEENT Disorder: Yes Hx Cataracts: Yes Hx Deafness: Yes - Renal Hx Renal Disorder: No - Endocrine/Metabolic Hx Endocrine Disorders: No - Hematological/Oncological Hx Blood Disorders: Yes Hx Anemia: Yes - Integumentary Hx Dermatological Disorder: No - Musculoskeletal/Rheumatological Hx Arthritis: Yes - Gastrointestinal Hx Gastrointestinal Disorders: Yes - Genitourinary/Gynecological Hx Genitourinary Disorders: Yes (URGENCY) Hx Incontinence: Yes (only when on water pill) Hx Urinary Tract Infection: Yes - Psychiatric Hx Psychophysiologic Disorder: No Hx Substance Use: No - Past Surgical History Past Surgical History: No Previous - Anesthesia Hx Anesthesia: Yes Hx Anesthesia Reactions: No Hx Malignant Hyperthermia: No - Suicidal Assessment Feels Threatened In Home Enviroment: No Family/Social History - Physician Review Nursing Documentation Reviewed: Yes Family/Social History: No Known Family HX Smoking Status: Former Smoker Hx Alcohol Use: No Hx Substance Use: No Allergies/Home Meds Allergies/Adverse Reactions: Allergies No Known Allergies Allergy (Verified 08/19/17 11:29) Home Medications: Home Meds Medication Instructions Recorded Confirmed Alendronate [Fosamax] 70 mg PO MON 05/29/17 11/02/17 Carvedilol [Coreg] 3.125 mg PO BID 05/29/17 11/02/17 Fluticasone/Salmeterol [Advair 1 each IH PRN PRN 05/29/17 11/02/17 250-50 Diskus] Furosemide [Lasix] 40 mg PO DAILY 05/29/17 11/02/17 Valsartan [Diovan] 80 mg PO DAILY 05/29/17 11/02/17 amLODIPine [Norvasc] 2.5 mg PO DAILY 05/29/17 11/02/17 Review of Systems - Physician Review All systems were reviewed & negative as marked: Yes - Review of Systems Constitutional: absent: Fevers Respiratory: SOB. absent: Cough Cardiovascular: absent: Chest Pain Gastrointestinal: absent: Abdominal Pain, Diarrhea, Nausea, Vomiting Physical Exam - Physical Exam Narrative Physical Exam (Text): 11/02/17 12:45 Gen: VS reviewed, alert, well developed, well nourished, nontoxic, mild distress ENT: normal pharynx Eye: EOMI, PERRL Neck: no JVD, supple, no adenopathy CV: regular rate, regular rhythm, no rubs,no murmur, no gallops, S1, S2, pulses equal and strong Pulm: no distress, faint crackles at bilateral bases, no wheeze, no rhonchi, breath sounds equal, no rales Abd: soft, nontender, no guarding, no rebound, no rigidity, normal bowel sounds Ext: no edema Skin: good color, no rash, no cyanosis Psych: responds appropriately to questions, normal affect Neuro: oriented x3, CN2-12 intact grossly, motor intact, sensation intact Vital Signs Reviewed: Yes Vital Signs Temp Pulse Pulse Resp BP Pulse Ox 11/02/17 19:43 77 22 133/55 L 90 L 11/02/17 18:52 99.1 F 72 72 20 159/75 H 11/02/17 17:45 68 22 129/62 96 11/02/17 12:36 72 20 97 11/02/17 12:15 99.1 F 78 16 159/75 H 78 L Temperature: Afebrile Blood Pressure: Hypertensive Pulse: Regular Respiratory Rate: Normal Appearance: Positive for: Well-Appearing, Non-Toxic, Comfortable Pain Distress: Mild Mental Status: Positive for: Alert and Oriented X 3 Medical Decision Making ED Course and Treatment: 11/02/17 12:57 Impression: 71 year old female presents to the Emergency department for evaluation of dyspnea on exertion. Plan: -- ABG -- EKG -- Labs -- Chest X-Ray -- Reassess and disposition Prior Visits: Notes and results from previous visits were reviewed. Progress Notes: 11/02/17 13:36 patient with hx chf, luther presents with dry cough and hypoxemia. patient does not exhibit any signs of acute respiratory distress. ddx including but not limited chf, pna, PE 11/02/17 16:[address] Kohli who is aware and agrees with emergency department management plan, accepts patient under her service. Requests Dr. Herrera on consult. - Lab Interpretations Lab Results: 11/02/17 13:25 11/02/17 13:25 Lab Results 11/02/17 13:25: pCO2 64 H, pO2 69.0 L, HCO3 37.0 H, ABG pH 7.37, ABG Total CO2 39.0 H, ABG O2 Saturation 95.5, ABG O2 Content 17.5, ABG Base Excess 9.2 H, ABG Hemoglobin 13.6, ABG Carboxyhemoglobin 3.1 H, POC ABG HHb (Measured) 4.3, ABG Methemoglobin 1.1, ABG O2 Capacity 18.3, Hgb O2 Saturation 91.5 L, FiO2 28.0 11/02/17 13:25: PT 32.8 H, INR 2.82 H, APTT 44.0 H 11/02/17 13:25: WBC 4.8, RBC 5.10, Hgb 13.5, Hct 44.5, MCV 87.3, MCH 26.5, MCHC 30.3 L, RDW 17.7 H, Plt Count 219, MPV 9.0, Gran % 69.3 H, Lymph % (Auto) 14.9 L , [place] % (Auto) 13.5 H, Eos % (Auto) 1.9, Baso % (Auto) 0.4, Gran # 3.29, Lymph # (Auto) 0.7 L, [place] # (Auto) 0.6, Eos # (Auto) 0.1, Baso # (Auto) 0.02 11/02/17 13:25: Sodium 139, Potassium 4.1, Chloride 95 L, Carbon Dioxide 36 H, Anion Gap 12, BUN 12, Creatinine 0.7, Est GFR ( Amer) > 60, Est GFR (Non- Af Amer) > 60, Random Glucose 165 H, Calcium 8.6, Total Bilirubin 0.4, AST 16, ALT 30, Alkaline Phosphatase 73, Troponin I < 0.01, NT-Pro-B Natriuret Pep 3090 H, Total Protein 6.8, Albumin 3.6, Globulin 3.2, Albumin/Globulin Ratio 1.1 - RAD Interpretation Radiology Orders: 11/02/17 14:33 X-RAY [CHEST TWO VIEWS (PA/LAT)] [RAD] Stat - EKG Interpretation EKG Interpretation (Text): 11/02/17 13:20 Time performed: 13:14 EKG: Ordered, reviewed, and independently interpreted the EKG. Rate : 64 BPM Rhythm : NSR Interpretation : Normal QRS, normal axis. Frequent PAC. Interpreted by ED Physician: Yes Type: 12 lead EKG - Medication Orders Current Medication Orders: Discontinued Medications Ceftriaxone Sodium (Rocephin 1 Gram Ivpb) 1 gm in 100 mls @ 100 mls/hr IVPB STAT STA PRN Reason: Protocol Stop: 11/02/17 17:14 Last Admin: 11/02/17 18:44 Dose: 100 mls/hr eMAR Start Stop Document 11/02/17 18:44 [email or web address] (Rec: 11/02/17 18:44 [email or web address] [id number]) Intravenous Solution Start Date 11/02/17 Start Time 18:44 End Date 11/02/17 Azithromycin (Zithromax 500mg In Ns) 500 mg in 250 mls @ 167 mls/hr IVPB STAT STA PRN Reason: Protocol Stop: 11/02/17 17:44 Last Admin: 11/02/17 19:48 Dose: 167 mls/hr eMAR Start Stop Document 11/02/17 19:48 [email or web address] (Rec: 11/02/17 19:48 [email or web address] [id number]) Intravenous Solution Start Date 11/02/17 Start Time 19:48 Pneumococcal Polyvalent Vaccine (Pneumovax 23 Vaccine) 0.5 ml IM .ONCE ONE Stop: 11/02/17 19:18 - Scribe Statement The provider has reviewed the documentation as recorded by the Miladysibilene Izaguirre. All medical record entries made by the Scribe were at my direction and personally dictated by me. I have reviewed the chart and agree that the record accurately reflects my personal performance of the history, physical exam, medical decision making, and the department course for this patient. I have also personally directed, reviewed, and agree with the discharge instructions and disposition. Disposition/Present on Arrival - Present on Arrival Any Indicators Present on Arrival: No History of DVT/PE: Yes History of Uncontrolled Diabetes: No Urinary Catheter: No History of Decub. Ulcer: No History Surgical Site Infection Following: None - Disposition Have Diagnosis and Disposition been Completed?: Yes Diagnosis: Pneumonia Disposition: HOSPITALIZED Disposition Time: 20:32 Patient Plan: Admission Patient Problems: Current Active Problems Problem Status Onset Pneumonia Acute Condition: GOOD
[2017-11-02 13:36] LABS: ARTERIAL BLOOD GAS HEMOGLOBIN 13.6 g/dL (11.7-17.4); ARTERIAL BLOOD GAS O2 CAPACITY 18.3 mL/dl (16-24); ARTERIAL BLOOD GAS O2 CONTENT 17.5 ML/dl (15-23); ARTERIAL BLOOD GAS O2 SAT 95.5 % (95-98); ARTERIAL BLOOD GAS PCO2 64 mm/Hg (35-45); ARTERIAL BLOOD GAS PH 7.37 (7.35-7.45)
[2017-11-02 13:44] LABS: BASO # 0.02 K/mm3 (0.0-2.0); BASO % 0.4 % (0.0-3.0); EOS # 0.1 (0.0-0.7); EOS % 1.9 % (1.5-5.0); GRAN # 3.29 (1.4-6.5); GRAN % 69.3 % (50.0-68.0); HEMOGLOBIN 13.5 g/dL (12.0-16.0); LYMPH # 0.7 (1.2-3.4); LYMPH % 14.9 % (22.0-35.0); MEAN CELL VOLUME 87.3 fl (80.0-105.0); MEAN CORPUSCULAR HEMOGLOBIN 26.5 pg (25.0-35.0); MEAN CORPUSCULAR HGB CONC 30.3 g/dl (31.0-37.0); MONO # 0.6 (0.1-0.6); MONO % 13.5 % (1.0-6.0); RBC 5.1 10^6/uL (3.5-6.1); RED CELL DISTRIBUTION WIDTH 17.7 % (11.5-14.5); WHITE BLOOD COUNT 4.8 10^3/ul (4.5-11.0)
[2017-11-02 13:49] LABS: INR 2.82 (0.93-1.08); PROTHROMBIN TIME 32.8 SECONDS (9.4-12.5)
[2017-11-02 13:55] LABS: ALB/GLOB RATIO 1.1 (1.1-1.8); ALBUMIN 3.6 g/dL (3.0-4.8); ALT/SGPT 30 U/L (7-56); AST/SGOT 16 U/L (14-36); BLOOD UREA NITROGEN 12 mg/dL (7-21); CALCIUM 8.6 mg/dL (8.4-10.5); GFR AFRICAN-AMERICAN > 60; GFR NON-AFRICAN AMERICAN > 60
[2017-11-02 14:07] LABS: B-TYPE NATRIURETIC PEPTIDE 3090 pg/mL (0-450); TROPONIN I < 0.01 ng/mL
[2017-11-02] MEDS ORDERED: cefTRIAXone 1 gm 1 GM/100 ML BAG IVPB STA (16:15)
[2017-11-02] MEDS ORDERED: Azithromycin 500MG/NS 250ml 500 MG/250 ML BAG IVPB STA (16:15)
--- NOTE | 2017-11-02 16:54 | RAD ---
Date of service: 11/02/2017 HISTORY: Congestive heart failure. COMPARISON: 05/29/2017. TECHNIQUE: Chest PA and lateral FINDINGS: LUNGS: Pulmonary vascular congestion. No focal/ discrete infiltrates. PLEURA: Small bilateral pleural effusions. CARDIOVASCULAR: Cardiomegaly/acute CHF. OSSEOUS STRUCTURES: No significant abnormalities. VISUALIZED UPPER ABDOMEN: Normal. OTHER FINDINGS: None. IMPRESSION: Cardiomegaly, pulmonary vascular congestion-acute CHF.
[2017-11-02] MEDS ORDERED: Pneumococcal 23-Valent Vaccine IM ONE (19:17)
--- NOTE | 2017-11-03 03:45 | HP ---
CHIEF COMPLAINTS: Respiratory distress. HISTORY OF PRESENT ILLNESS: Ms. Katty Bates, 71-year-old female with past medical history of CAD with the hypercholesterolemia, hypertension, diabetes mellitus, sleep apnea, congestive heart failure. Came to the Emergency Department for the evaluation of increasing dyspnea on exertion since 2 days. The patient states these symptoms began 2 days ago when she would frequently fall asleep after 15 minutes of exertion. The patient states her oxygen saturation has been fluctuating from low to high associated with increased somnolence and nonproductive cough. The patient states that she visited my office and was referred to the emergency room for evaluation. The patient denies any fever, chills, nausea, vomiting, diarrhea, abdominal pain, chest pain, lower extremity swelling. PAST MEDICAL HISTORY: Congestive hear failure, hypertension, COPD, TIA, cataract, deafness, anemia, genitourinary urgency FAMILY HISTORY: Father and mother, noncontributory. HABITS: Former smoker. Now, no smoking, no drugs, no ethanol. ALLERGIES: THE PATIENT IS NOT ALLERGIC WITH ANY MEDICATIONS. HOME MEDICATIONS: Furosemide, Coreg, Lasix, Norvasc. REVIEW OF SYSTEMS: The patient was seen and examined on the bedside, looking comfortable. No nausea, vomiting, diarrhea. No hematuria or hematochezia. Still coughing, having shortness of breath. No fever. No chills. PHYSICAL EXAMINATION: VITAL SIGNS: Temperature 99.1, pulse 78, respiratory rate 16, blood pressure 159/75, pulse oximetry 78. HEENT: Head normocephalic, atraumatic. Eyes PERRLA. Extraocular muscles intact. Conjunctivae clear. Nose patent. Mucous membrane moist. NECK: Supple. No carotid bruit. No JVD or thyromegaly. CHEST: Bilaterally symmetrical. HEART: S1 and S2 positive. LUNGS: Wheezing bilaterally. ABDOMEN: Soft. Bowel sounds positive. No organomegaly. EXTREMITIES: No edema. No cyanosis. NEUROLOGICAL: The patient is awake and alert. Moving all 4 extremities. No focal deficits. LABORATORY DATA: White blood cells 7.8, hemoglobin 13.5, hematocrit 44.5, platelets 219. Sodium 139, potassium 4.1, BUN 12, creatinine 0.7, glucose 165. ASSESSMENT AND PLAN: Ms. Katty Bates, a 71-year-old lady with diabetes mellitus, hypochloremia, came with dyspnea, shortness of breath. Admitted, Rocephin given and Zithromax given by ER. Has pneumonia. The patient has history of pulmonary embolism, deep venous thrombosis, hypercholesterolemia, hypertension, diabetes mellitus, sleep apnea syndrome, congestive heart failure. We admitted the patient. Restarted old medications. Pulmonary consult called. We will continue DuoNeb, antibiotics. We will follow up. Melvina Kohli MD MTDJohnnie
--- NOTE | 2017-11-03 13:00 | CARD ---
APPROVED REPORT Date of service: 11/02/2017 EKG Measurement Heart [id number] CT 150P10 [id number] <Conclusion> Sinus rhythm with occasional JPCs Otherwise normal ECG
[2017-11-03] MEDS: MethylPREDNISolone 40 mg Vial IVP SCH ×2 (13:47→21:47)
--- NOTE | 2017-11-03 14:36 | CON ---
DATE: 11/03/2017 PULMONARY CONSULT REFERRING PHYSICIAN: Dr. Kohli. REASON FOR CONSULTATION: Respiratory failure, [id number] lung disease, pulmonary hypertension. HISTORY OF PRESENT ILLNESS: This is a 71-year-old female known to me from previous admission with multiple medical issue including obesity, may have a component of hypoventilation syndrome, pulmonary hypertension, cardiac diastolic dysfunction, history of coronary artery disease, hyperlipidemia, hypertension, diabetes. There may be component of sleep apnea syndrome who has a home oxygen and also has noninvasive ventilation at home. For the last few days, according to family, she has some change in mental status and more sleepy, tired, not moving around, had been in the bed mostly, brought in with cough, shortness of breath, found to have had high proBNP in the past. She has a LVH and pulmonary hypertension. I believe stress thallium in the past has been unremarkable. There is no hemoptysis or emesis. No hematuria, no diarrhea reported. FAMILY HISTORY: No significant cardiopulmonary disease reported. SOCIAL HISTORY: Stopped smoking about 2 years ago. Denies any alcohol use. ALLERGIES: NONE KNOWN. HOME MEDICATIONS She is on Norvasc, Coumadin, Diovan, Lasix, Advair, ferrous sulfate, Coreg, vitamin C; been on Augmentin, Fosamax. REVIEW OF SYSTEMS: No headache. No rhinitis. Has cough, shortness of breath. No chest pain. No nausea, no vomiting, no diarrhea, dysuria. No leg pain or leg swelling. PHYSICAL EXAMINATION: GENERAL: Sitting up in a bed, no acute distress. VITAL SIGNS: Temperature is 98, heart rate 74, respiratory rate is 20, blood pressure 136/61, pulse ox of 93%, 2 liters nasal cannula. HEENT: Moist mucous membrane. Crowded airway. Mallampati score is 4. Short thick neck. LUNGS: Has a scattered rhonchi and a few wheezing. HEART: S1, S2. ABDOMEN: Soft, nontender. No organomegaly. EXTREMITIES: No edema. NEUROLOGIC: Awake, awake and follows simple commands. DATA: Laboratory data shows hemoglobin 13.5, hematocrit 44.5, WBC 4.8, platelets is 219. INR is 2.82, PTT 44. Blood gas shows pH 7.37, pCO2 64, pO2 69. Sodium 139, potassium 4.1, chloride 95, bicarbonate 36, BUN 12, creatinine 0.7, glucose 165, calcium 8.6, total bili 0.4, AST 16, ALT 30, alkaline phosphatase is 73. Troponin less than 0.01. ProBNP 3090. Albumin 3.6. Chest x-ray done yesterday shows cardiomegaly with pulmonary vascular congestion. IMPRESSION AND PLAN: [id number] respiratory failure with carbon dioxide retention, hypoxemia, has a chronic obstructive lung disease, history of cardiac dysfunction, mild diastolic dysfunction with pulmonary hypertension. There may be component of hypoventilation syndrome with obesity, history of deep venous thrombosis, history of peripheral edema and on anticoagulation. INR is therapeutic. Case discussed with the patient's family at bedside. All the questions answered. We will place her on BiPAP 03/15 with 35% percent oxygen while sleeping. Add Solu-Medrol 40 mg every 12 hours, antibiotics, 40 mg daily. We will repeat echocardiogram, reassess LV and RV function. If there is right heart strain (?) creating high proBNP; gastric prophylaxis. Continue anticoagulation, fall precaution. Follow up labs in the morning. May need to repeat sleep study upon discharge as outpatient or need followup done on the home BiPAP. We will follow with you. Danii Herrera MD
[2017-11-03] MEDS: Budesonide 0.5 mg/2 ml Inhal Susp UD IH SCH (21:40)
[2017-11-03] MEDS: Arformoterol 15 mcg/2 ml Inh Sol IH SCH (21:40)
--- NOTE | 2017-11-04 00:40 | CP.PCM.CON ---
History of Present Illness - History of Present Illness History of Present Illness: Ms. Bates is a 71 year old female well known to me from office. She has history of extensive PE , intubated for around a week in 2014. She has been on coumadin since then with therapeutic INR. She was seen in office on , her PO2 was 80 % on room air. She was advised to go to ER but she refused. She has BIPAP at home. Morbid obesity. weight stable. She has chronic iron deficiency, on IV iron intermittently. Hb/hct has been stable . She reports day time somnolence for past few days. Review of Systems - Constitutional Constitutional: As Per HPI - EENT Eyes: absent: As Per HPI, Blind Spots, Blurred Vision, Change in Vision, Decreased Night Vision, Diplopia, Discharge, Dry Eye, Exophthalmos, Floaters, Irritation, Itchy Eyes, Loss of Peripheral Vision, Pain, Photophobia, Requires Corrective Lenses, Sees Flashes, Spots in Vision, Tunnel Vision, Other Visual Disturbances, Loss of Vision, Other Ears: absent: As Per HPI, Decreased Hearing, Ear Discharge, Ear Pain, Tinnitus, Abnormal Hearing, Disequilibrium, Dizziness, Other Nose/Mouth/Throat: absent: As Per HPI, Epistaxis, Nasal Congestion, Nasal Discharge, Nasal Obstruction, Nasal Trauma, Nose Pain, Post Nasal Drip, Sinus Pain, Sinus Pressure, Bleeding Gums, Change in Voice, Dental Pain, Dry Mouth, Dysphagia, Halitosis, Hoarsness, Lip Swelling, Mouth Lesions, Mouth Pain, Odynophagia, Sore Throat, Throat Swelling, Tongue Swelling, Facial Pain, Neck Pain, Neck Mass, Other - Breasts Breasts: absent: As Per HPI, Change in Shape, Mass, Pain, Nipple Discharge, Nipple Inversion, Skin Changes, Swelling, Other - Cardiovascular Cardiovascular: absent: As Per HPI, Acrocyanosis, Chest Pain, Chest Pain at Rest , Chest Pain with Activity, Claudication, Diaphoresis, Dyspnea, Dyspnea on Exertion, Edema, Irregular Heart Rhythm, Pain Radiating to Arm/Neck/Jaw, Leg Edema, Leg Ulcers, Lightheadedness, Orthopnea, Palpitations, Paroxysmal Nocturnal Dyspnea, Pedal Edema, Radiating Pain, Rapid Heart Rate, Slow Heart Rate, Syncope, Other - Respiratory Respiratory: As Per HPI - Gastrointestinal Gastrointestinal: absent: As Per HPI, Abdominal Pain, Belching, Bloating, Change in Bowel Habits, Change in Stool Character, Coffee Ground Emesis, Constipation, Cramping, Diarrhea, Dyspepsia, Dysphagia, Early Satiety, Excessive Flatus, Fecal Incontinence, Heartburn, Hematemesis, Hematochezia, Loose Stools, Melena, Nausea, Odynophagia, Temesmus, Vomiting, Other - Genitourinary Genitourinary: absent: As Per HPI, Change in Urinary Stream, Difficulty Urinating, Dysuria, Flank Pain, Hematuria, Pyuria, Nocturia, Urinary Incontinence, Urinary Frequency, Urinary Hesitance, Urinary Urgency, Voiding Freq/Small Amts, Freq UTI, Hx Renal/Bladder Calculi, Hx /Renal Surgery, Bladder Distension, Other - Reproductive: Female Reproductive:Female: absent: As Per HPI, Amenorrhea, Amenorrhea/ Control, Currently Menstual, Cycle <21 Days, Cycle >35 Days, Cycle Variable, Menses 1-7 Days, Menses >/= 8 Days, Menses Variable, Cycle > 4 Weeks Between, No Menses for 6 Months, Heavy Menses, Light Menses, Normal Menses, Spotting Between Cycles , S/P Hysterectomy, Menopausal, Post Menopausal, Premenarche, Abnormal Vaginal Bleeding, Dysmenorrhea, Dyspareunia, Genital Lesions, Genital Pruritis, Pelvic Pain, Prolapse Symptoms, Sexual Dysfunction, Vaginal Discharge, Vaginal Dryness , Vaginal Odor, Vaginal Pruritis, Other - Musculoskeletal Musculoskeletal: absent: As Per HPI, Abnormal Gait, Arthralgias, Atrophy, Back Pain, Deformity, Joint Swelling, Limited Range of Motion, Loss of Height, Muscle Cramps, Muscle Weakness, Myalgias, Neck Pain, Numbness, Radiating Pain into Limb, Stiffness, Tingling, Other - Integumentary Integumentary: absent: As Per HPI, Acne, Alopecia, Bleeding Lesions, Change in Hair, Change in Nails, Change in Pigmentation, Changing Lesions, Dry Skin, Erythema, Furuncle, Hirsutism, Lesions, New Lesions, Non-Healing Lesions, Photosensitivity, Pruritus, Rash, Skin Pain, Skin Ulcer, Sores, Striae, Swelling , Unusual Bruising, Wounds, Jaundice, Other - Neurological Neurological: absent: As Per HPI, Abnormal Gait, Abnormal Hearing, Abnormal Movements, Abnormal Speech, Behavioral Changes, Burning Sensations, Confusion, Convulsions, Disequilibrium, Dizziness, Numbness, Focal Weakness, Frequent Falls , Headaches, Lack of Coordination, Loss of Vision, Memory Loss, Paresthesias, Radicular Pain, Restless Legs, Sensory Deficit, Syncope, Tingling, Tremor, Vertigo, Weakness, Other Visual Disturbances, Other - Psychiatric Psychiatric: absent: As Per HPI, Abnormal Sleep Pattern, Anhedonia, Anxiety, Auditory Hallucinations, Behavioral Changes, Change in Appetite, Change in Libido, Confusion, Depression, Difficulty Concentrating, Hallucinations, Homicidal Ideation, Hopelessness, Irritability, Memory Loss, Mood Swings, Panic Attacks, Paranoia, Suicidal Ideation, Visual Hallucinations, Tactile Hallucinations, Other - Endocrine Endocrine: absent: As Per HPI, Change in Body Appearance, Change in Libido, Cold Intolorance, Deepening of Voice, Excessive Sweating, Fatigue, Flushing, Heat Intolorance, Increase in Ring/Shoe/Hat Size, Palpitations, Polydipsia, Polyphagia, Polyuria, Other - Hematologic/Lymphatic Hematologic: As Per HPI Past Patient History - Infectious Disease Hx of Infectious Diseases: None - Tetanus Immunizations Tetanus Immunization: Unknown - Past Medical History & Family History Past Medical History?: Yes - Past Social History Smoking Status: Former Smoker - CARDIAC Hx Cardiac Disorders: Yes Hx Congestive Heart Failure: Yes Hx Hypertension: Yes - PULMONARY Hx Chronic Obstructive Pulmonary Disease (COPD): Yes - NEUROLOGICAL HX Cerebrovascular Accident: Yes (TIA) - HEENT Hx HEENT Problems: Yes Hx Cataracts: Yes Hx Deafness: Yes - RENAL Hx Chronic Kidney Disease: No - ENDOCRINE/METABOLIC Hx Endocrine Disorders: No - HEMATOLOGICAL/ONCOLOGICAL Hx Blood Disorders: Yes Hx Anemia: Yes - INTEGUMENTARY Hx Dermatological Problems: No - MUSCULOSKELETAL/RHEUMATOLOGICAL Hx Arthritis: Yes - GASTROINTESTINAL Hx Gastrointestinal Disorders: Yes - GENITOURINARY/GYNECOLOGICAL Hx Genitourinary Disorders: Yes (URGENCY) Hx Incontinence: Yes (only when on water pill) Hx Urinary Tract Infection: Yes - PSYCHIATRIC Hx Psychophysiologic Disorder: No Hx Substance Use: No - SURGICAL HISTORY Hx Surgeries: Yes - ANESTHESIA Hx Anesthesia: Yes Hx Anesthesia Reactions: No Hx Malignant Hyperthermia: No Meds Allergies/Adverse Reactions: Allergies Allergy/AdvReac Type Severity Reaction Status Date / Time No Known Allergies Allergy Verified 08/19/17 11:29 - Medications Medications: Current Medications Alendronate Sodium (Fosamax) 70 mg PO MON [facility] Amlodipine Besylate (Norvasc) 5 mg PO DAILY [facility] Last Admin: 11/03/17 13:47 Dose: 5 mg Arformoterol Tartrate (Brovana) 15 mcg IH [id number] [facility] Last Admin: 11/03/17 21:40 Dose: 15 mcg Ascorbic Acid (Vitamin C 500 Mg Tab) 500 mg PO DAILY [facility] Budesonide (Pulmicort Respules) 0.5 mg IH [id number] [facility] Last Admin: 11/03/17 21:40 Dose: 0.5 mg Carvedilol (Coreg) 3.125 mg PO BID [facility] Last Admin: 11/03/17 17:57 Dose: 3.125 mg Doxycycline Hyclate (Doryx) 100 mg PO Q12 [facility] PRN Reason: Protocol Last Admin: 11/03/17 21:47 Dose: 100 mg Furosemide (Lasix) 40 mg PO DAILY [facility] Last Admin: 11/03/17 13:47 Dose: 40 mg Methylprednisolone (Solu-Medrol) 40 mg IVP Q12 [facility] Last Admin: 11/03/17 21:47 Dose: 40 mg Metoprolol Tartrate (Lopressor) 25 mg PO BID [facility] Last Admin: 11/03/17 17:57 Dose: 25 mg Pantoprazole Sodium (Protonix Ec Tab) 40 mg PO 0600 [facility] Roflumilast (Daliresp) 500 mcg PO DAILY [facility] Warfarin Sodium (Coumadin) 2 mg PO DAILY [facility] PRN Reason: Protocol Last Admin: 11/03/17 17:59 Dose: 2 mg Physical Exam - Constitutional Appears: Well, Non-toxic - Head Exam Head Exam: ATRAUMATIC, NORMAL INSPECTION, NORMOCEPHALIC - Eye Exam Eye Exam: Normal appearance - ENT Exam ENT Exam: Mucous Membranes Moist, Normal Exam - Neck Exam Neck exam: Positive for: Normal Inspection - Respiratory Exam Respiratory Exam: Clear to Auscultation Bilateral, NORMAL BREATHING PATTERN - Cardiovascular Exam Cardiovascular Exam: REGULAR RHYTHM, +S1, +S2 - GI/Abdominal Exam GI & Abdominal Exam: Normal Bowel Sounds, Soft - Extremities Exam Extremities exam: Positive for: normal inspection - Back Exam Back exam: NORMAL INSPECTION - Neurological Exam Neurological exam: Alert, CN II-XII Intact, Normal Gait, Oriented x3 - Psychiatric Exam Psychiatric exam: Normal Affect - Skin Skin Exam: Normal Color, Warm Results - Vital Signs Recent Vital Signs: Last Vital Signs Temp 98.6 F 11/03/17 23:41 Pulse 69 11/03/17 23:41 Resp 16 11/03/17 23:41 BP 133/74 11/03/17 23:41 Pulse Ox 95 11/03/17 23:41 - Labs Result Diagrams: 11/02/17 13:25 11/02/17 13:25 Labs: Laboratory Results - last 24 hr 11/03/17 11/03/17 11/03/17 08:00 11:48 16:11 POC Glucose (mg/dL) 103 101 139 H 11/03/17 21:17 POC Glucose (mg/dL) 205 H Assessment & Plan - Assessment and Plan (Free Text) Assessment: 1. Hypercoaguable state : h/O extensive PE. has been on coumadin with therapeutic INR. Now hypercapneia, hypoxia. CT chest with PE protocol to r/o chronic PE. She had CT chest without contrast in 05/2017. Continue coumadin current dose. 2. Anemia : chronic, iron deficiency. Might have iron absorption defect. s/p recent IV iron . Hb.Hct stable. 3. Pulmonary : Dr. Severino note reviewed. 4. renal : BUN, creatinine stable. Thank you DR. Kohli for allowing us to participate in her care. - Date & Time Date: 11/03/17 Time: 11:00
--- NOTE | 2017-11-04 04:51 | PN ---
DATE: 11/03/2017 SUBJECTIVE: The patient is a [id number] female, looking comfortable. Shortness of breath is better. Cough is better. No headache. No rhinitis. No chest pain. No nausea, vomiting, diarrhea. No dysuria. No swelling of the leg. No fever. No chills. PHYSICAL EXAMINATION: VITAL SIGNS: Temperature is 98.1, heart rate 74, respiratory rate is 20, blood pressure 130/50, pulse oximetry 93% on 2 liters nasal cannula. HEENT: Head normocephalic, atraumatic. Eyes PERRLA. Extraocular muscles intact. Conjunctivae clear. Nose patent. Mucous membrane moist. NECK: Supple. No carotid bruit. No JVD or thyromegaly. CHEST: Bilaterally symmetrical. LUNGS: Scattered rhonchi and few wheezing. HEART: S1 and S2 positive. ABDOMEN: Soft and nontender. No organomegaly. EXTREMITIES: No edema. No cyanosis. NEUROLOGICAL: The patient is awake and alert. Follows simple commands. LABORATORY DATA: White blood cells is 4.8, hemoglobin 13.5, hematocrit 44.5, platelets 219. INR is 2.8. PTT 44. Sodium 139, potassium 4.1, BUN 12, creatinine 0.7. AST 16. ALT 30. ASSESSMENT AND PLAN: Ms. Paulo Alaniz is a [id number] lady came with acute on chronic respiratory failure with carbon dioxide retention, hypoxemia, chronic obstructive pulmonary disease. History of cardiac arrhythmia, is on Coumadin, checking INR from Dr. Lopez every month. Mild diastolic dysfunction with pulmonary hypertension. There is a component of hypoventilation syndrome with obesity. History of deep vein thrombosis, history of peripheral edema, on anticoagulation. INR is therapeutic. Case discussed with nursing staff. Reviewed Dr. Herrera's note. Dr. Herrera had discussion done with the family. All questions answered. She will get BiPAP at night. Dr. Herrera added Solu-Medrol. Repeat echocardiography. Continue anticoagulation for precautions. Gastrointestinal and deep venous thrombosis prophylaxis. Repeat labs. We will follow up. Melvina Kohli MD [facility] # [id number]
[2017-11-04] MEDS: Pantoprazole 40 mg EC Tab PO SCH (06:04)
[2017-11-04 07:36] LABS: B-TYPE NATRIURETIC PEPTIDE 3590 pg/mL (0-450)
[2017-11-04 07:38] LABS: INR 1.77 (0.93-1.08); PROTHROMBIN TIME 20.6 SECONDS (9.4-12.5)
[2017-11-04 07:42] LABS: ALB/GLOB RATIO 1.2 (1.1-1.8); ALT/SGPT 24 U/L (7-56); AST/SGOT 24 U/L (14-36); BLOOD UREA NITROGEN 16 mg/dL (7-21); CALCIUM 8.4 mg/dL (8.4-10.5); GFR AFRICAN-AMERICAN > 60; GFR NON-AFRICAN AMERICAN > 60
[2017-11-04] MEDS ORDERED: Iohexol 350 MG/100 ML VIAL ONE (07:51)
[2017-11-04] MEDS: Arformoterol 15 mcg/2 ml Inh Sol IH SCH ×3 (08:28→20:16)
[2017-11-04] MEDS: Budesonide 0.5 mg/2 ml Inhal Susp UD IH SCH ×3 (08:28→20:16)
[2017-11-04] MEDS: MethylPREDNISolone 40 mg Vial IVP SCH ×3 (10:27→21:44)
--- NOTE | 2017-11-04 11:06 | CT ---
Date of service: 11/04/2017 PROCEDURE: CT Chest with contrast (Pulmonary Angiogram) HISTORY: h/o PE. r/o recurrent PE COMPARISON: None available. TECHNIQUE: Axial computed tomography images were obtained of the chest in the pulmonary arterial phase of enhancement. Coronal and sagittal reformatted images were created and reviewed. Intravenous contrast dose: Radiation dose: Total exam DLP = mGy-cm. This CT exam was performed using one or more of the following dose reduction techniques: Automated exposure control, adjustment of the mA and/or kV according to patient size, and/or use of iterative reconstruction technique. FINDINGS: PULMONARY ARTERIES: Unremarkable. No pulmonary embolism. AORTA: No acute findings. No thoracic aortic aneurysm. LUNGS: Unremarkable. No nodule, mass or pulmonary consolidation. PLEURAL SPACES: Mild bibasilar pleural thickening. . Small left pleural effusion. HEART: Cardiomegaly. No significant pericardial effusion. LYMPH NODES: No lymphadenopathy. BONES, CHEST WALL: Unremarkable. No fracture or destructive lesion OTHER FINDINGS: Hiatal hernia. IMPRESSION: No embolism. Small left effusion
--- NOTE | 2017-11-04 11:27 | CARD ---
APPROVED REPORT Date of service: 11/04/2017 EXAM: Two-dimensional and M-mode echocardiogram with Doppler and color Doppler. INDICATION Congestive Heart Failure 2D DIMENSIONS Left Atrium (2D)5.8 (1.6-4.0cm)IVSd1.3 (0.7-1.1cm) LVDd4.4 (3.9-5.9cm)LVOT Diameter1.8 (1.8-2.4cm) PWd1.3 (0.7-1.1cm)LVDs3.0 (2.5-4.0cm) FS (%) 32.6 %LVEF (%)61.1 (>50%) M-Mode DIMENSIONS Aortic Root3.30 (2.2-3.7cm)Aortic Cusp Exc.1.00 (1.5-2.0cm) Aortic Valve AoV Peak Crmyhzqn257.0cm/sAoV VTI72.5cmAO Peak GR.37mmHg LVOT Peak Klylqqqv268.0cm/sLVOT VTI45.40cmAO Mean GR.20mmHg ESTELA (VMAX)1.21al7LNF (VTI)1.59cm2 Mitral Valve MV E Qsylnymu362.0cm/sMV A Xnumcibt782.0cm/sE/A ratio0.9 TDI Lateral E' Peak V8.63cm/sMedial E' Peak V4.78cm/sE/Lateral E'14.8 E/Medial E'26.8 Pulmonary Valve PV Peak Kcghkhwp94.1cm/sPV Peak Grad.4mmHg Tricuspid Valve TR Peak Vhmctlgm408de/sRAP UTQMGJIB72udKfWF Peak Gr.74mmHg [id number] LEFT VENTRICLE The left ventricle is normal size. There is mild concentric left ventricular hypertrophy. The left ventricular function is normal. The left ventricular ejection fraction is within the normal range. There is normal LV segmental wall motion. RIGHT VENTRICLE The right ventricle is normal size. The right ventricular systolic function is normal. ATRIA The left atrium is severely dilated. The right atrium is moderately dilated. The interatrial septum is intact with no evidence for an atrial septal defect. AORTIC VALVE The aortic valve is moderately calcified. There is mild to moderate valvular aortic stenosis. MITRAL VALVE Mitral annular calcification is moderate. Mitral regurgitation is mild. TRICUSPID VALVE The tricuspid valve is normal in structure. There is moderate to severe tricuspid regurgitation. There is severe pulmonary hypertension. PULMONIC VALVE The pulmonary valve is normal in structure. GREAT VESSELS The aortic root is normal in size. The IVC is normal in size and collapses >50% with inspiration. PERICARDIAL EFFUSION There is no pleural effusion. There is no pericardial effusion. <Conclusion> Biatrial enlargement. Normal LV size and systolic function. Mild concentric LVH. Mild to moderate . Mild MR. Moderate to severe TR. Severe pulmonary HTN.
--- NOTE | 2017-11-04 23:21 | CP.PCM.PN ---
Subjective - Date & Time of Evaluation Date of Evaluation: 11/04/17 Time of Evaluation: 18:00 - Subjective Subjective: Comfortable in bed. Oxygenation improved . CT chest wit PE protocol ordered, negative for PE. No chest pain. Ambulating in room without any discomfort. Objective - Vital Signs/Intake and Output Vital Signs (last 24 hours): Temp Pulse Resp BP Pulse Ox 98.5 F 77 20 142/79 93 L 11/04/17 18:00 11/04/17 22:30 11/04/17 18:00 11/04/17 18:08 11/04/17 06:00 Intake and Output: 11/04/17 11/05/17 18:59 06:59 Intake Total 1414 Output Total 10 Balance 1404 - Medications Medications: Current Medications Alendronate Sodium (Fosamax) 70 mg PO MON [facility] Last Admin: 11/04/17 11:50 Dose: 70 mg Amlodipine Besylate (Norvasc) 5 mg PO DAILY [facility] Last Admin: 11/04/17 11:51 Dose: 5 mg Arformoterol Tartrate (Brovana) 15 mcg IH [id number] [facility] Last Admin: 11/04/17 20:16 Dose: 15 mcg Ascorbic Acid (Vitamin C 500 Mg Tab) 500 mg PO DAILY [facility] Last Admin: 11/04/17 10:28 Dose: Not Given Budesonide (Pulmicort Respules) 0.5 mg IH [id number] [facility] Last Admin: 11/04/17 20:16 Dose: 0.5 mg Carvedilol (Coreg) 3.125 mg PO BID [facility] Last Admin: 11/04/17 18:08 Dose: 3.125 mg Doxycycline Hyclate (Doryx) 100 mg PO Q12 [facility] PRN Reason: Protocol Last Admin: 11/04/17 21:44 Dose: 100 mg Furosemide (Lasix) 40 mg PO DAILY [facility] Last Admin: 11/04/17 11:50 Dose: 40 mg Methylprednisolone (Solu-Medrol) 40 mg IVP Q12 [facility] Last Admin: 11/04/17 21:44 Dose: 40 mg Metoprolol Tartrate (Lopressor) 25 mg PO BID [facility] Last Admin: 11/04/17 18:08 Dose: 25 mg Pantoprazole Sodium (Protonix Ec Tab) 40 mg PO 0600 [facility] Last Admin: 11/04/17 06:04 Dose: 40 mg Roflumilast (Daliresp) 500 mcg PO DAILY [facility] Last Admin: 11/04/17 11:50 Dose: 500 mcg Warfarin Sodium (Coumadin) 2 mg PO DAILY [facility] PRN Reason: Protocol Last Admin: 11/04/17 11:50 Dose: 2 mg - Labs Labs: 11/04/17 06:30 PT 20.6 SECONDS (9.4-12.5) H 11/04/17 06:30 INR 1.77 (0.93-1.08) H 11/04/17 06:30 APTT 44.0 Seconds (25.1-36.5) H 11/02/17 13:25 - Constitutional Appears: Well, Non-toxic - Head Exam Head Exam: ATRAUMATIC, NORMAL INSPECTION, NORMOCEPHALIC - Eye Exam Eye Exam: Normal appearance - ENT Exam ENT Exam: absent: Mucous Membranes Dry, Mucous Membranes Moist, Normal Exam, Normal External Ear Exam, Normal Oropharynx, TM's Normal Bilaterally - Neck Exam Neck Exam: absent: Full ROM, Lymphadenopathy, Meningismus, Normal Inspection, Tenderness, Thyromegaly - Respiratory Exam Respiratory Exam: Clear to Ausculation Bilateral, NORMAL BREATHING PATTERN - Cardiovascular Exam Cardiovascular Exam: REGULAR RHYTHM, +S1, +S2 - GI/Abdominal Exam GI & Abdominal Exam: Soft, Normal Bowel Sounds - Extremities Exam Extremities Exam: Normal Inspection - Back Exam Back Exam: NORMAL INSPECTION - Neurological Exam Neurological Exam: Alert, Awake, CN II-XII Intact, Normal Gait, Oriented x3 - Psychiatric Exam Psychiatric exam: Normal Affect, Normal Mood - Skin Skin Exam: Normal Color, Warm Assessment and Plan - Assessment and Plan (Free Text) Assessment: 1. Hyperco[place] state : hypoxia , CT angio negative for recurrent PE. therapeutic on coumadin . Continue same dose coumadin. 2. Hypoxia : respiratory failure, pulmonary hypertension. Dr. Mason following. 3. Chronic anemia : Hb/Hct stable. 4. Renal : Stable. 5. CV : stable. Thank you Dr. Kohli for allowing us to participate in her care.
--- NOTE | 2017-11-05 04:22 | PN ---
DATE: 11/04/2017 SUBJECTIVE: The patient is 71 years old female. Patient was seen and examined at the bedside, looking comfortable. No nausea, vomiting or diarrhea. No hematuria or hematochezia. Cough is better. Shortness of breath is better. Wheezing is better. Oxygenation improved with antibiotics. CT chest with PE protocol ordered, negative for PE. PHYSICAL EXAMINATION VITAL SIGNS: Temperature 98.5, pulse 77, respiratory rate 20, blood pressure 142/79, pulse oxymetry is 93. HEENT: Head normocephalic, atraumatic. Eyes PERRLA. Extraocular muscles intact. Conjunctivae clear. Nose patent. Mucous membrane moist. NECK: Supple. No carotid bruit. No JVD or thyromegaly. CHEST: Bilaterally symmetrical. HEART: S1 and S2 positive. LUNGS: Clear to auscultation. ABDOMEN: Soft. Bowel sounds positive. No organomegaly. EXTREMITIES: No edema. No cyanosis. NEUROLOGICAL: The patient is awake and alert. Moving all 4 extremities. No focal deficits. MEDICATIONS: Fosamax, amlodipine, Brovana, ascorbic acid, Pulmicort, Coreg, doxycycline, Lasix, Solu-Medrol, Lopressor, Protonix, Daliresp, Coumadin. LABORATORY DATA: Sodium 142, potassium 4.7, BUN 16, creatinine 0.7. Glucose 133. Chloride 96. ASSESSMENT AND PLAN: Ms. Katty Bates is 71 years old lady with hypochloremia, hyperglycemia, has hypercoagulable state, hypoxia, CT angio negative for recurrent pulmonary embolism, therapeutic on Coumadin, continue same dose of Coumadin and continue repetition of PT/INR, hypoxia, respiratory failure, pulmonary hypertension, getting bronchodilators, chronic anemia, hemoglobin and hematocrit stable, renal insufficiency stable, history of cerebrovascular accident, obesity. The patient has lifestyle modification, tapering the dose of steroids, antibiotics, seen by the it service manager, Dr. Herrera and heading machine operator, Dr. Lopez. Melvina Kohli MD
--- NOTE | 2017-11-05 04:50 | PN ---
Copied To: Danii Herrera MD Attending MD: Danii Herrera MD DATE: 11/04/2017 REFERRING PHYSICIAN: Melvina Kohli MD SUBJECTIVE: The patient is lying in the bed, head at 45 degrees. Night was unremarkable. Feels better. Decreased cough. Decreased shortness of breath. Able to ambulate with help. Refused BiPAP use last night. No nausea, no vomiting, no diarrhea. No leg pain or leg swelling. OBJECTIVE: VITAL SIGNS: Temperature is 98, heart rate 77, respiratory rate is 20, blood pressure 142/79, pulse ox 93% on nasal cannula. HEENT: Moist mucous membranes. Crowded airway. NECK: Supple. No JVD. LUNGS: Have fair airflow with rhonchi, prolonged expiratory phase. HEART: S1 and S2. ABDOMEN: Soft, nontender. No organomegaly. EXTREMITIES: No edema. NEUROLOGIC: Awake, alert, follows simple command. MEDICATIONS: She is on Brovana inhaled twice a day, Coreg 3.125 mg twice a day, Coumadin 2 mg Daliresp 500 mcg daily, doxycycline 100 mg twice a day, Fosamax 70 mg weekly, Lasix mg daily, metoprolol tartrate 25 mg twice a day, Norvasc 5 mg daily, Protonix 40 mg daily, Pulmicort inhaled twice a day, Solu-Medrol 40 mg every 12 hours, vitamin C 500 mg daily. LABORATORY DATA: INR today 1.77. Sodium 142, potassium 4.7, chloride 96, bicarbonate 39, BUN 16, creatinine 0.7, glucose 133, calcium 8.4, AST 24, ALT 24, alk phos is 79. ProBNP 3590, procalcitonin 0.05. Microbiology, blood culture has been negative. CAT scan of the chest done shows no embolism, small left pleural effusion. Had echocardiogram done yesterday, which shows right ventricular systolic pressure is 84, bilateral enlarged atrial enlargement, normal left ventricle size and systolic function, mild concentric LVH, mild to moderate aortic stenosis, moderate to severe TR, severe pulmonary hypertension. IMPRESSION: Severe pulmonary hypertension, chronic obstructive lung disease, respiratory failure with CO2 retention, left ventricular hypertrophy, also mild diastolic dysfunction, hypertension, obesity, history of DVT in the past, on anticoagulation. Pulmonary point of view, doing okay. Continue to encourage bilevel positive airway pressure use. Spoke to nursing staff to place bilevel positive airway pressure tonight. 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 Will need to start on pulmonary hypertension vasodilator, may start on sildenafil 20 mg every 8 hours. Thank you and we will follow with you. Danii Herrera MD
[2017-11-05] MEDS: Pantoprazole 40 mg EC Tab PO SCH (06:35)
[2017-11-05] MEDS: Arformoterol 15 mcg/2 ml Inh Sol IH SCH ×2 (07:36→21:25)
[2017-11-05] MEDS: Budesonide 0.5 mg/2 ml Inhal Susp UD IH SCH ×2 (07:36→21:25)
[2017-11-05] MEDS: MethylPREDNISolone 40 mg Vial IVP SCH ×2 (11:35→23:03)
[2017-11-05] MEDS: Sildenafil 20 MG TAB PO SCH ×3 (11:35→17:57)
--- NOTE | 2017-11-05 17:41 | CARD ---
APPROVED REPORT Date of service: 11/05/2017 EKG Measurement Heart [id number] [id number] <Conclusion> Normal sinus rhythm Normal ECG
--- NOTE | 2017-11-05 22:01 | PN ---
Copied To: Danii Herrera MD Attending MD: Danii Herrera MD. DATE: 11/05/2017 PULMONARY PROGRESS NOTE REFERRING PHYSICIAN: Melvina Kohli MD. SUBJECTIVE: She is ambulating in the room, feels much better. Could not tolerate hospital BiPAP. She got her own home BiPAP today. We will use it. Breathing is better. Decreased cough. No nausea. No vomiting, diarrhea, leg pain, leg swelling. OBJECTIVE: GENERAL: In no acute distress. VITAL SIGNS: Temp is 98, heart rate is 70, respiratory rate is 20, blood pressure 138/55, pulse ox 95% on nasal cannula. HEENT: Moist mucous membrane. Crowded airway. NECK: Supple. No JVD. LUNGS: Have prolonged expiratory phase. HEART: S1 and S2. ABDOMEN: Soft, nontender. No organomegaly. EXTREMITIES: There is no edema. NEUROLOGICAL: Awake and alert. Follows simple command. MEDICATIONS: She is on Brovana inhaled twice a day, Coreg 3.125 mg twice a day, Coumadin 2 mg given today, Daliresp 500 mcg daily, doxycycline 100 mg twice a day, Fosamax 70 mg weekly, Lasix 40 mg daily, metoprolol tartrate 25 mg twice a day, Norvasc 5 mg daily, Protonix 40 mg daily, Pulmicort inhaled twice a day, sildenafil 20 mg three times a day, Solu-Medrol 40 mg every 12 hours, vitamin C 500 mg daily. LABORATORY DATA: Shows INR 1.77. Blood gases show pH 7.37, pCO2 of 64, O2 is 69. Blood sugar today is 172. Microbiology: Blood culture has been negative. IMPRESSION AND PLAN: Severe pulmonary hypertension, chronic obstructive lung disease, respiratory failure with CO2 retention, has left ventricular hypertrophy, mild diastolic dysfunction, hypertension, obesity, history of deep venous thrombosis, on anticoagulation. Case discussed with Dr. Lopez. Also, spoke to nursing. Educated the patient about sleep apnea's relation with old pulmonary embolism sleep apnea. Encourage her to use continuous positive airway pressure. Continue Revatio 20 mg every 8 hours. Should have a pulmonary function test as outpatient. Fall precaution. will benefit from rehabilitation. Thank you and we will follow with you. Danii Herrera MD [facility] # [id number]
--- NOTE | 2017-11-06 04:17 | PN ---
Copied To: Melvina Kohli MD Attending MD: Melvina Kohli MD. DATE: 11/05/2017 SUBJECTIVE: The patient is a 71-year-old female. Patient is seen and examined on the bedside in the telemetry, looking comfortable. Ready to go on the other medical floor. She got her own home BiPAP today. Was not satisfied with the hospital's BiPAP, cannot tolerate that pressure. Cough is better. Shortness of breath is better. No nausea or vomiting. No headache. No dizziness. No chest pain. No palpitation. PHYSICAL EXAMINATION: VITAL SIGNS: Temperature 98, heart rate 70, respiratory rate 20, blood pressure 138/55, pulse oximetry 95% on nasal cannula. HEENT: Head normocephalic, atraumatic. Eyes, PERRLA. Extraocular muscles intact. Conjunctivae clear. Nose patent. Mucous membrane moist. NECK: Supple. No carotid bruit. No JVD or thyromegaly. CHEST: Bilaterally symmetrical. LUNGS: Have prolonged expiratory phase. HEART: S1, S2 positive. ABDOMEN: Soft. Nontender. No organomegaly. EXTREMITIES: No edema. No cyanosis. NEUROLOGICAL: The patient is awake, alert. Follows simple commands. MEDICATIONS: Brovana, Coreg, Coumadin, Daliresp, doxycycline, Fosamax, Lasix, metoprolol, Norvasc, Protonix, Pulmicort, sildenafil 20 mg three times a day, Solu-Medrol. LABORATORY DATA: INR 1.77. Blood culture has been negative. ASSESSMENT AND PLAN: Ms. Katty Bates is a 71-year-old lady with severe pulmonary hypertension, chronic obstructive lung disease, respiratory failure with CO2 retention, has left ventricular hypertrophy, mild diastolic dysfunction, hypertension, obesity, history of deep vein thrombosis, on anticoagulation. Dr. Lopez and Dr. Herrera is on the case. Sleep apnea precautions. Patient is using bilevel positive airway pressure. Cannot tolerate hospital machine, pressure now she got from home machine. Continue positive airway pressure as per Dr. Herrera. Continue Revatio 20 mg every 8 hours. Fall precautions. Gastrointestinal, deep vein thrombosis prophylaxis. Repeat labs. We will follow up. Melvina Kohli MD
[2017-11-06] MEDS: Pantoprazole 40 mg EC Tab PO SCH (06:45)
[2017-11-06 07:09] LABS: HEMOGLOBIN 13.9 g/dL (12.0-16.0); MEAN CELL VOLUME 86.9 fl (80.0-105.0); MEAN CORPUSCULAR HEMOGLOBIN 26.3 pg (25.0-35.0); MEAN CORPUSCULAR HGB CONC 30.3 g/dl (31.0-37.0); MEAN PLATELET VOLUME 9.1 fl (7.0-11.0); RBC 5.28 10^6/uL (3.5-6.1); RED CELL DISTRIBUTION WIDTH 17.4 % (11.5-14.5); WHITE BLOOD COUNT 6.3 10^3/ul (4.5-11.0)
[2017-11-06 07:13] LABS: INR 1.9; PROTHROMBIN TIME 22.1 SECONDS (9.4-12.5)
[2017-11-06 07:30] LABS: BLOOD UREA NITROGEN 21 mg/dL (7-21); CALCIUM 8.4 mg/dL (8.4-10.5); GFR AFRICAN-AMERICAN > 60; GFR NON-AFRICAN AMERICAN > 60
[2017-11-06] MEDS: Arformoterol 15 mcg/2 ml Inh Sol IH SCH ×2 (07:33→20:35)
[2017-11-06] MEDS: Budesonide 0.5 mg/2 ml Inhal Susp UD IH SCH ×2 (07:33→20:35)
[2017-11-06] MEDS: Sildenafil 20 MG TAB PO SCH ×3 (10:46→18:53)
[2017-11-06] MEDS: MethylPREDNISolone 40 mg Vial IVP SCH ×2 (10:51→21:24)
--- NOTE | 2017-11-06 15:22 | PN ---
Copied To: Danii Herrera MD Attending MD: Danii Herrera MD DATE: 11/06/2017 PULMONARY PROGRESS NOTE REFERRING PHYSICIAN: Melvina Kohli MD. SUBJECTIVE: She is able to ambulate, feels better. Tolerated home BiPAP well. Cough is improved. No nausea. No vomiting, diarrhea, leg pain, leg swelling. OBJECTIVE: GENERAL: In no acute distress. VITAL SIGNS: Temperature is 98, heart rate is 70, respiratory rate is 20, blood pressure 125/75, pulse ox 98% on BiPAP this morning. HEENT: Moist mucous membrane. Crowded airway. Mallampati score is 4. NECK: Supple. No JVD. LUNGS: Have prolonged expiratory phase. HEART: S1 and S2. ABDOMEN: Soft, nontender. No organomegaly. EXTREMITIES: There is no edema. NEUROLOGICAL: Awake and alert. Follows simple command. MEDICATIONS: She is on Brovana inhaled twice a day, Coreg 3.125 mg twice a day, Coumadin 3 mg was given, Daliresp 500 mcg daily, doxycycline 100 mg daily, Fosamax 70 mg weekly, Lasix 40 mg daily, metoprolol tartrate 25 mg twice a day, Norvasc 5 mg daily, Protonix 40 mg daily, Pulmicort inhaled twice a day, Revatio 20 mg three times a day, Solu-Medrol 40 mg every 12 hours, vitamin C 500 mg daily. LABORATORY DATA: Shows hemoglobin 13.9, hematocrit 45.9, WBC 6.3, platelet is 206. INR 1.9. Sodium 140, potassium 4.3, chloride 96, bicarbonate 39, BUN 21, creatinine 0.7, glucose 103, calcium 8.4. Microbiology: Blood culture has been negative. IMPRESSION AND PLAN: Severe pulmonary hypertension, chronic obstructive lung disease, respiratory failure with CO2 retention and hypoxemia, left ventricular hypertrophy with mild diastolic dysfunction, hypertension, obesity, history of deep venous thrombosis, on anticoagulation. Pulmonary point of view, doing well. Decrease Solu-Medrol to 20 every 12 hours. continue sildenafil 20 mg every 8 hours. Discontinue doxycycline. Gastri prophylaxis. Continue noninvasive ventilator at nighttime. Thank you and we will follow with you. Danii Herrera MD
--- NOTE | 2017-11-06 22:50 | PN ---
Copied To: Melvina Kohli MD Attending MD: Melvina Kohli MD DATE: 11/06/2017 SUBJECTIVE: The patient is sitting on the bedside, feels better. Tolerated home BiPAP last night very well. Cough is better. Shortness of breath is better. No nausea, vomiting, diarrhea. No hematuria or hematuria. No swelling of the leg. No chest pain. No palpitation. No headache. No dizziness. PHYSICAL EXAMINATION: VITAL SIGNS: Temperature 98, heart rate 70, respiratory rate 20, blood pressure 120/70, pulse oximetry 98% on BiPAP. HEENT: Head normocephalic, atraumatic. Eyes PERRLA. Extraocular muscles intact. Conjunctivae clear. Nose patent. Mucous membrane moist. NECK: Supple. No carotid bruit. No JVD or thyromegaly. CHEST: Bilaterally symmetrical. HEART: S1 and S2 positive. LUNGS: Have prolonged expiratory phase. ABDOMEN: Soft, nontender, no organomegaly. EXTREMITIES: No edema. No cyanosis. NEUROLOGICAL: The patient is awake and alert. Follows simple commands. MEDICATIONS: Brovana, Coreg, Coumadin, Daliresp, doxycycline, Fosamax, Lasix, metoprolol, Norvasc, Protonix, Pulmicort, Revatio, Solu-Medrol tapering doses, vitamin C. LABORATORY DATA: Hemoglobin 13.9, hematocrit 45.9, white blood cells 6.3, platelets 206. INR 1.9. Sodium 140, potassium 4.3, BUN 21, creatinine 0.7. ASSESSMENT AND PLAN: Mr. Katty Bates, 71-year-old lady with severe pulmonary hypertension, chronic obstructive pulmonary disease, respiratory failure with carbon dioxide retention and hypoxemia, left ventricular hypertrophy with mild diastolic dysfunction, obesity, noncompliant, hypertension, history of deep venous thrombosis, on anticoagulation, pulmonary hypertension. Dr. Herrera decreased the Solu-Medrol to 20. [address] Herrera discontinued the doxycycline. Gastric prophylaxis. Continue noninvasive ventilator at nighttime. We will order physical therapy. GI, deep venous thrombosis prophylaxis. We will try to do Transitional Care Unit. We will follow up. Melvina Kohli MD
[2017-11-07] MEDS: Pantoprazole 40 mg EC Tab PO SCH (06:27)
[2017-11-07 07:01] VITALS: O2SAT 97
[2017-11-07] MEDS: Budesonide 0.5 mg/2 ml Inhal Susp UD IH SCH (08:55)
[2017-11-07] MEDS: Arformoterol 15 mcg/2 ml Inh Sol IH SCH (08:55)
[2017-11-07] MEDS: Sildenafil 20 MG TAB PO SCH ×2 (09:36→14:40)
[2017-11-07] MEDS: MethylPREDNISolone 40 mg Vial IVP SCH (11:36)
[2017-11-07 12:20] VITALS: BP 140/48; PULSE 58; RESP 18; TEMP 98
--- NOTE | 2017-11-08 00:28 | DS ---
date 11/07/17 Copied To: Melvina Kohli MD Attending MD: Melvina Kohli MD CHIEF COMPLAINT: Respiratory distress. HISTORY OF PRESENT ILLNESS: The patient is a 71-year-old female with past medical history of coronary artery disease with hypercholesterolemia, hypertension, diabetes mellitus, sleep apnea syndrome, congestive heart failure. Came to the emergency room for evaluation of increasing dyspnea on exertion since 2 days. The patient states these symptoms began 2 days ago when she would frequently fall asleep after every 15 minutes, especially after exertion. The patient states her oxygen saturation has been fluctuating from low to high associated with increasing nonproductive cough. The patient visited her doctor's office. Came to [facility]. We admitted her, did the chest x-ray, CT scan of the chest. Seen by freelance art director, Dr. Herrera. Tapering dose of steroid and BiPAP was given, she tolerated. Discharged home on 11/07/2017. Follow up as outpatient. Medicines provided at the bedside. PAST MEDICAL HISTORY: Congestive heart failure, hypertension, COPD, TIA, cataract surgery, deafness, anemia, genitourinary urgency. FAMILY HISTORY: Father and mother, noncontributory. HABITS: Former smoker, now no smoking. No drugs. No ethanol. ALLERGIES: THE PATIENT IS NOT ALLERGIC WITH ANY MEDICATIONS. HOME MEDICATIONS: Furosemide, Coreg, Lasix, Norvasc. REVIEW OF SYSTEMS: The patient was seen and examined on the bedside, looking comfortable. No nausea, vomiting, diarrhea. No hematuria or hematochezia. No swelling of the legs. No chest pain. No palpitation. No headache. No dizziness. Cough and shortness of breath are better. PHYSICAL EXAMINATION: VITAL SIGNS: Temperature 98, pulse 58, blood pressure 140/40, respiratory rate 18. HEENT: Head normocephalic, atraumatic. Eyes PERRLA. Extraocular muscles intact. Conjunctivae clear. Nose patent. Mucous membrane moist. NECK: Supple. No carotid bruit. No JVD or thyromegaly. CHEST: Bilaterally symmetrical. HEART: S1 and S2 positive. LUNGS: Clear to auscultation. ABDOMEN: Soft. Bowel sounds positive. No organomegaly. EXTREMITIES: No edema. No cyanosis. NEUROLOGICAL: The patient is awake and alert. Moving all 4 extremities. No focal deficits. LABORATORY DATA: White blood cells 6.3, hemoglobin 13.9, hematocrit 45.9, platelets 206. Sodium 140, potassium 4.3, BUN 21, creatinine 0.7, glucose 137. ASSESSMENT AND PLAN: Ms. Katty Bates, 71-year-old lady with hypochloremia, diabetes mellitus, COPD, asthma, obstructive sleep apnea syndrome, obesity, severe pulmonary hypertension, respiratory failure with carbon dioxide retention and hypoxemia, left ventricular hypertrophy with mild diastolic dysfunction, history of deep vein thrombosis, on anticoagulation. Got the tapering dose of steroids. Gastric and DVT prophylaxis given. Doxycycline was discontinued. Discharged home today. Medicines were provided on the bedside including inhalers. Follow up with freelance art director and primary care physician. Discussion done with the patient and the patient's nursing staff. Melvina Kohli MD [facility]
--- NOTE | 2017-11-08 00:31 | PN ---
Copied To: Danii Herrera MD Attending MD: Danii Herrera MD DATE: 11/07/2017 PULMONARY PROGRESS NOTE REFERRING PHYSICIAN: Melvina Kohli MD SUBJECTIVE: She is out of bed to chair. Night was unremarkable. Tolerated BiPAP well. No headache, no rhinitis. Breathing is better, improved with decreased shortness of breath. No leg pain or leg swelling. OBJECTIVE: GENERAL: In no acute distress. VITAL SIGNS: Temperature is 98, heart rate is 58, respiratory rate is 18, blood pressure 140/48, pulse ox 97% on BiPAP this morning. HEENT: Moist mucous membrane. Crowded airway. NECK: Supple. No JVD. LUNGS: Have a fair airflow with rhonchi. HEART: S1 and S2. ABDOMEN: Soft, nontender. No organomegaly. EXTREMITIES: There is no edema. NEUROLOGICAL: Awake and alert. Follows simple command. MEDICATIONS: Reviewed. No new changes. LABORATORY DATA: Since yesterday, reviewed, noted blood sugar this morning 137. Microbiology, blood culture, there is no growth. IMPRESSION AND PLAN: Severe pulmonary hypertension, chronic obstructive lung disease, respiratory failure with carbon dioxide retention and hypoxemia, left ventricular hypertrophy with mild diastolic dysfunction, hypertension, obesity, history of deep venous thrombosis, on anticoagulation. Pulmonary point of view, she is doing well. Could be discharged home on sildenafil 20 mg every 8 hours, tapered dose of steroids. Gastric prophylaxis. Fall precaution. Outpatient pulmonary function test. Side effect of sildenafil discussed, and the patient expressed understanding. Thank you and we will follow with you. Danii Herrera MD
--- NOTE | 2017-11-18 08:52 | PQF ---
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 The patient's Clinical Indicators include: ED physician documents pneumonia, but this is not seen elsewhere in the record. Do you agree, disagre e, undetermined with pneumonia for this patient? Patient admitted with acute on chronic respiratory failure with COPD, CHF and possible pneumonia. Ple ase clarify principal diagnosis--reason for acute on chronic RF. Thank you. Query created by: Abida Clark on 11/08/2017 9:53 AM Electronically signed by: Melvina Kohli MD 11/18/2017 8:49 AM
--- NOTE | 2017-11-19 15:58 | PQF ---
PROVIDER RESPONSE TEXT: Acute respiratory failure on top of chronic REVIEWER QUERY TEXT: Clarification of Clinical Diagnostic Findings Please clarify documentation or clinical relevance for the clinical / diagnostic findings or whether those are insignificant or unable to be further specified. The patient's Clinical Indicators include: ED physician documents pneumonia but this is not seen elsewhere in the record. Do you agree, disagree with pneumonia for this patient? Patient was admitted with acute on chronic respiratory failure with COPD, CHF and possible pneumonia. Please clarify principal dx.--reason for acute on chronic RF. Thank you. (Contact info--[email or web address]) Query created by: Abida Clark on 11/18/2017 4:11 PM Electronically signed by: Danii Herrera MD 11/19/2017 3:56 PM
--- NOTE | 2017-11-20 13:59 | PQF ---
PROVIDER RESPONSE TEXT: Community acquired pneumonia REVIEWER QUERY TEXT: Pneumonia Specificity Pneumonia is documented in the Medical Record. Please specify the type of pneumonia and the causative organism (includes probable or suspected) Such as: Type: -- Aspiration pneumonia (please also specify the aspirate) - (please specify cause) - Please indicate if the aspiration is postprocedure -- Bacterial (please document suspected or probable organism) -- Bronchopneumonia (please document suspected or probable organism) -- Interstitial pneumonia -- Organizing pneumonia / BOOP -- Pneumonia with influenza, nuno flu, or H1N1 flu -- RSV -- Tuberculosis, pulmonary -- Viral -- Other, please specify The patient's Clinical Indicators include: ED physician documents pneumonia. but this is not documented elsewhere in the record. Please clarify whether patient had pneumonia on this admission. Thank you. (Contact info--[email or web address]) Query created by: Abida Clark on 11/20/2017 8:48 AM Electronically signed by: Danii Herrera MD 11/20/2017 1:55 PM
== END 2017-11-07 16:56 | disposition home or self-care (01) | DRG 193 ==
LOC: ED 11:55 → ERH 16:45 → 2RSO 19:57
PROVIDERS: ADMIT Internal Medicine; ATTEND Internal Medicine
DX: J18.9 Pneumonia, unspecified organism (principal); J96.21 Acute and chronic respiratory failure with hypoxia; D68.59 Other primary thrombophilia; E87.2 Acidosis; J44.0 Chronic obstructive pulmonary disease with (acute) lower respiratory infection; D50.9 Iron deficiency anemia, unspecified; E11.65 Type 2 diabetes mellitus with hyperglycemia; E66.01 Morbid (severe) obesity due to excess calories; E78.00 Pure hypercholesterolemia, unspecified; E78.5 Hyperlipidemia, unspecified; E87.8 Other disorders of electrolyte and fluid balance, not elsewhere classified; G47.33 Obstructive sleep apnea (adult) (pediatric); H91.90 Unspecified hearing loss, unspecified ear; I11.0 Hypertensive heart disease with heart failure; I25.10 Atherosclerotic heart disease of native coronary artery without angina pectoris; I27.20 Pulmonary hypertension, unspecified; I50.9 Heart failure, unspecified; Z53.20 Procedure and treatment not carried out because of patient's decision for unspecified reasons; Z79.01 Long term (current) use of anticoagulants; Z79.83 Long term (current) use of bisphosphonates; Z86.711 Personal history of pulmonary embolism; Z86.718 Personal history of other venous thrombosis and embolism; Z86.73 Personal history of transient ischemic attack (TIA), and cerebral infarction without residual deficits; Z87.440 Personal history of urinary (tract) infections; Z87.891 Personal history of nicotine dependence; Z91.19 Patient's noncompliance with other medical treatment and regimen; Z68.37 Body mass index [BMI] 37.0-37.9, adult

== ENCOUNTER 2018-01-01 14:06 | Inpatient (IN) | payer MEDICARE, OTHER ==
[2018-01-01 14:06] VITALS: BMI 35.8
--- NOTE | 2018-01-01 14:36 | ED PDOC ---
Arrival/HPI - General Chief Complaint: Weakness/Neurological Deficit Time Seen by Provider: 01/01/18 14:27 Historian: Spouse EM Caveat: Other (Patient's mumbling is unintelligible) - History of Present Illness Narrative History of Present Illness (Text): 01/01/18 14:35 Patient is a 72 year old female whose past medical history includes arthritis, who presents to the emergency department with her for abdominal pain. reports that patient is experiencing abdominal pain, and is also worried about a left breast lump. She is also experiencing back and shoulder pain. HPI and ROS is limited due to patient's mumbling being unintelligible. PMD: Symptom Onset: Sudden Context: Home Past Medical History - Infectious Disease Hx of Infectious Diseases: None - Tetanus Immunization Tetanus Immunization: Unknown - Cardiac Hx Cardiac Disorders: Yes Hx Congestive Heart Failure: Yes Hx Hypertension: Yes Hx Peripheral Edema: Yes Hx Peripheral Vascular Disease: Yes - Pulmonary Hx Chronic Obstructive Pulmonary Disease (COPD): Yes Hx Pneumonia: Yes Other/Comment: "2 L of oxygen through the nose and bipap machine at home" - Neurological Hx Neurological Disorder: Yes Hx Transient Ischemic Attacks (TIA): Yes (2016) - HEENT Hx HEENT Disorder: Yes Hx Cataracts: Yes (2017) - Renal Hx Renal Disorder: No - Endocrine/Metabolic Hx Endocrine Disorders: No - Hematological/Oncological Hx Blood Disorders: Yes Hx Anemia: Yes - Integumentary Hx Dermatological Disorder: No - Musculoskeletal/Rheumatological Hx Musculoskeletal Disorders: No Hx Falls: No - Gastrointestinal Hx Gastrointestinal Disorders: Yes Hx Gastroesophageal Reflux: Yes - Genitourinary/Gynecological Hx Genitourinary Disorders: Yes (URGENCY) Hx Incontinence: Yes (only when on water pill) Hx Urinary Tract Infection: Yes - Psychiatric Hx Psychophysiologic Disorder: No Hx Substance Use: No - Past Surgical History Past Surgical History: No Previous - Anesthesia Hx Anesthesia: Yes Hx Anesthesia Reactions: No Hx Malignant Hyperthermia: No - Suicidal Assessment Feels Threatened In Home Enviroment: No Family/Social History Smoking Status: Never Smoked Hx Alcohol Use: No Hx Substance Use: No Allergies/Home Meds Allergies/Adverse Reactions: Allergies No Known Allergies Allergy (Verified 12/13/17 20:16) Home Medications: Home Meds Medication Instructions Recorded Confirmed RX: Alendronate [Fosamax] 70 mg PO MON 05/29/17 01/01/18 RX: Carvedilol [Coreg] 6.25 mg PO BID 05/29/17 01/01/18 RX: Fluticasone/Salmeterol [Advair 1 each IH PRN PRN 05/29/17 01/01/18 250-50 Diskus] Sildenafil [Revatio] 20 mg PO TID 12/16/17 01/01/18 Review of Systems - Review of Systems Systems not reviewed;Unavailable: Other (Patient's mumbling is unintelligible) Gastrointestinal: Abdominal Pain Musculoskeletal: Arthralgias, Back Pain Physical Exam Vital Signs Reviewed: Yes Vital Signs Temp Pulse Resp BP Pulse Ox 01/01/18 14:20 98.4 F 64 18 134/47 L 100 Temperature: Afebrile Blood Pressure: Normal Pulse: Regular Respiratory Rate: Normal Appearance: Positive for: Well-Appearing Mental Status: Positive for: Lethargic - Systems Exam Head: Present: Atraumatic, Normocephalic Pupils: Present: Other (there is a right pupillary defect and no response to light, difficult to visualize into posterior eye on ophthmalmascope exam) Extroacular Muscles: Present: EOMI Conjunctiva: Present: Normal Mouth: Present: Moist Mucous Membranes Neck: Present: Normal Range of Motion Respiratory/Chest: Present: Clear to Auscultation, Good Air Exchange. No: Respiratory Distress, Accessory Muscle Use Cardiovascular: Present: Regular Rate and Rhythm, Normal S1, S2. No: Murmurs Abdomen: No: Tenderness, Distention, Peritoneal Signs Back: Present: Normal Inspection Upper Extremity: Present: Normal Inspection. No: Cyanosis, Edema Lower Extremity: Present: Normal Inspection. No: Edema Neurological: Present: GCS=15, CN II-XII Intact, Speech Normal Skin: Present: Warm, Dry, Normal Color. No: Rashes Psychiatric: Present: Lethargic Medical Decision Making ED Course and Treatment: 01/01/18 14:36 Impression: Patient is a 72 year old female who as per is complaining of abdominal pain and a breast lump. Differential Diagnosis included but are not limited to: Plan: -- Head CT without Contrast -- EKG -- Cardiac enzymes -- Labs -- Blood work -- Urinalysis -- Chest X-ray -- Reassess and disposition Prior Visits: Notes and results from previous visits were reviewed. She last presented to the Emergency Department on 12/15/17 and was admitted for congestive heart failure. Progress Notes: 01/01/18 15:01 pCO2 very high and will initiate BiPAP. 01/01/18 15:23 Discussed case with , who is aware of and agrees to admit patient under her service for altered mental status and CO2 narcosis. 01/01/18 16:11 further hx provided by , patient has been mumbling her words for two weeks. 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 Patient is more than likely to be perm blind in the right eye. He recommends follow up with their own eye doctor or can see him in the office for follow up upon discharge. - Critical Care Critical Care Minutes: Other (35, critical care time for critical illness, coordination of care and care discussion with admitting team) - Lab Interpretations I have reviewed the lab results: Yes - RAD Interpretation Narrative RAD Interpretations (Text): 01/01/18 16:02 Chest X-ray: Dictator : oM Emerson MD FINDINGS: LUNGS:Pulmonary vascular congestion a new finding compared to the prior study. PLEURA: New right pleural effusion CARDIOVASCULAR: Stable cardiomegaly OSSEOUS STRUCTURES: No significant abnormalities. VISUALIZED UPPER ABDOMEN: Normal. OTHER FINDINGS: None. IMPRESSION: Cardiomegaly, new congestive heart failure. 01/01/18 16:[address] without Contrast: Dictator : Mo Emerson MD FINDINGS: HEMORRHAGE: No intracranial hemorrhage. BRAIN: No mass effect or edema. No atrophy or chronic microvascular ischemic changes. VENTRICLES: Unremarkable. No hydrocephalus. CALVARIUM: Unremarkable. PARANASAL SINUSES: Chronic left maxillary sinus disease. MASTOID AIR CELLS: Unremarkable as visualized. No inflammatory changes. OTHER FINDINGS: Diffuse increased attenuation within the right globe with Hounsfield units averaging 97. The findings are suspicious for acute Vitreous hemorrhage. IMPRESSION: Findings suspicious for acute hemorrhage within the right globe. No acute intracranial abnormalities. Communication of results: I discussed findings directly with Dr. Membreno at 15:26. The study was completed at 15:11 - EKG Interpretation EKG Interpretation (Text): 01/01/18 EKG shows NSR at 61bpm with normal QRS, RAD, and nonspecific T wave abnormality. Interpreted by me. Interpreted by ED Physician: Yes Type: 12 lead EKG - Scribe Statement The provider has reviewed the documentation as recorded by the Scribe Emerson Garcia Provider Scribe Attestation: All medical record entries made by the Scribe were at my direction and personally dictated by me. I have reviewed the chart and agree that the record accurately reflects my personal performance of the history, physical exam, medical decision making, and the department course for this patient. I have also personally directed, reviewed, and agree with the discharge instructions and disposition. Disposition/Present on Arrival - Present on Arrival Any Indicators Present on Arrival: No History of DVT/PE: No History of Uncontrolled Diabetes: No Urinary Catheter: No History of Decub. Ulcer: No History Surgical Site Infection Following: None - Disposition Have Diagnosis and Disposition been Completed?: Yes Diagnosis: Congestive heart failure Disposition: HOSPITALIZED Disposition Time: 15:23
[2018-01-01 14:54] LABS: VENOUS BLOOD GAS PO2 50 mm/Hg (30-55)
[2018-01-01 15:01] LABS: BASO # 0.01 K/mm3 (0.0-2.0); BASO % 0.2 % (0.0-3.0); EOS # 0.1 (0.0-0.7); EOS % 0.9 % (1.5-5.0); GRAN # 3.45 (1.4-6.5); GRAN % 62.6 % (50.0-68.0); HEMOGLOBIN 13.7 g/dL (12.0-16.0); LYMPH # 0.8 (1.2-3.4); LYMPH % 13.6 % (22.0-35.0); MEAN CELL VOLUME 83.4 fl (80.0-105.0); MEAN CORPUSCULAR HEMOGLOBIN 24.8 pg (25.0-35.0); MEAN CORPUSCULAR HGB CONC 29.7 g/dl (31.0-37.0); MEAN PLATELET VOLUME 9.2 fl (7.0-11.0); MONO # 1.3 (0.1-0.6); MONO % 22.7 % (1.0-6.0); PLATELET COUNT 290 10^3/uL (120.0-450.0); RBC 5.53 10^6/uL (3.5-6.1); RED CELL DISTRIBUTION WIDTH 21.5 % (11.5-14.5); WHITE BLOOD COUNT 5.5 10^3/ul (4.5-11.0)
--- NOTE | 2018-01-01 15:34 | CT ---
Date of service: 01/01/2018 PROCEDURE: CT HEAD WITHOUT CONTRAST. HISTORY: weakness COMPARISON: 04/28/2015 TECHNIQUE: Axial computed tomography images were obtained through the head/brain without intravenous contrast. Supplemental Coronal and Sagittal projectections created and reviewed. Radiation dose: Total exam DLP = 72227 mGy-cm. This CT exam was performed using one or more of the following dose reduction techniques: Automated exposure control, adjustment of the mA and/or kV according to patient size, and/or use of iterative reconstruction technique. FINDINGS: HEMORRHAGE: No intracranial hemorrhage. BRAIN: No mass effect or edema. No atrophy or chronic microvascular ischemic changes. VENTRICLES: Unremarkable. No hydrocephalus. CALVARIUM: Unremarkable. PARANASAL SINUSES: Chronic left maxillary sinus disease. MASTOID AIR CELLS: Unremarkable as visualized. No inflammatory changes. OTHER FINDINGS: Diffuse increased attenuation within the right globe with Hounsfield units averaging 97. The findings are suspicious for acute Vitreous hemorrhage. IMPRESSION: Findings suspicious for acute hemorrhage within the right globe. No acute intracranial abnormalities. Communication of results: I discussed findings directly with Dr. Membreno at 15:26. The study was completed at 15:11
[2018-01-01 15:36] LABS: LYMPHOCYTE 20 % (22.0-35.0); NEUTROPHIL 70 % (50.0-70.0)
[2018-01-01 15:37] LABS: ANISOCYTOSIS 1+; MICROCYTOSIS 1+; MONOCYTE 10 % (1.0-6.0); PLATELET ESTIMATE NORMAL (NORMAL)
--- NOTE | 2018-01-01 15:37 | RAD ---
Date of service: 01/01/2018 HISTORY: Chest pain. COMPARISON: 11/02/2017 FINDINGS: LUNGS: Pulmonary vascular congestion a new finding compared to the prior study. PLEURA: New right pleural effusion CARDIOVASCULAR: Stable cardiomegaly OSSEOUS STRUCTURES: No significant abnormalities. VISUALIZED UPPER ABDOMEN: Normal. OTHER FINDINGS: None. IMPRESSION: Cardiomegaly, new congestive heart failure.
[2018-01-01 16:26] LABS: ARTERIAL BLOOD GAS HCO3 33.2 mmol/L (21-28); ARTERIAL BLOOD GAS HEMOGLOBIN 13.7 g/dL (11.7-17.4); ARTERIAL BLOOD GAS O2 CAPACITY 18.7 mL/dl (16-24); ARTERIAL BLOOD GAS O2 CONTENT 18.1 ML/dl (15-23); ARTERIAL BLOOD GAS O2 SAT 96.9 % (95-98); ARTERIAL BLOOD GAS PH 7.26 (7.35-7.45); ARTERIAL BLOOD GAS TCO2 35.5 mmol.L (22-28)
[2018-01-01 16:29] LABS: ARTERIAL BLOOD GAS PCO2 74 mm/Hg (35-45)
[2018-01-01 16:46] LABS: URINE BILIRUBIN NEGATIVE (NEGATIVE); URINE BLOOD NEGATIVE (NEGATIVE); URINE GLUCOSE (UA) NEGATIVE (NEGATIVE); URINE LEUKOCYTE ESTERASE NEGATIVE Leu/uL (NEGATIVE); URINE PROTEIN TRACE mg/dL (<30 mg/dL); URINE UROBILINOGEN 0.2 E.U./dL (<1 E.U./dL)
[2018-01-01 16:48] LABS: URINE APPEARANCE CLEAR (CLEAR); URINE COLOR YELLOW (YELLOW)
[2018-01-01 17:06] LABS: URINE BACTERIA FEW (NEG); URINE RBC NEGATIVE /hpf (0-2)
[2018-01-01 17:08] LABS: INR 1.36; PARTIAL THROMBOPLASTIN TIME 30.6 Seconds (25.1-36.5); PROTHROMBIN TIME 15.6 SECONDS (9.4-12.5)
--- NOTE | 2018-01-01 17:19 | CP.PCM.CON ---
<Maryana Sen - Last Filed: 01/01/18 18:21> History of Present Illness - History of Present Illness History of Present Illness: ICU Consult note for Dr. Sheffield Consulted for Mrs. 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 Patient is alert and oriented x2 to person and place. She is currently on BIPAP. her states that she has not been able to use the BIPAP for several days due to supply issues. patient reports mild LUQ pain. She is able to answer simple questions despite the BIPAP. She otherwise denies chest pain, fevers or chills. 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 PSH: Cataract repair x2 Social: former smoker (quit 3 yrs ago) Review of Systems - Review of Systems All systems: reviewed and no additional remarkable complaints except Review of Systems: As per HPI Past Patient History - Infectious Disease Hx of Infectious Diseases: None - Tetanus Immunizations Tetanus Immunization: Unknown - Past Medical History & Family History Past Medical History?: Yes - Past Social History Smoking Status: Former Smoker - CARDIAC Hx Cardiac Disorders: Yes Hx Congestive Heart Failure: Yes Hx Hypertension: Yes Hx Peripheral Edema: Yes Hx Peripheral Vascular Disease: Yes - PULMONARY Hx Chronic Obstructive Pulmonary Disease (COPD): Yes Hx Pneumonia: Yes Other/Comment: "2 L of oxygen through the nose and bipap machine at home" - NEUROLOGICAL Hx Neurological Disorder: Yes Hx Transient Ischemic Attacks (TIA): Yes (2015) - HEENT Hx HEENT Problems: Yes Hx Cataracts: Yes (2016) - RENAL Hx Chronic Kidney Disease: No - ENDOCRINE/METABOLIC Hx Endocrine Disorders: No - HEMATOLOGICAL/ONCOLOGICAL Hx Blood Disorders: No - INTEGUMENTARY Hx Dermatological Problems: No - MUSCULOSKELETAL/RHEUMATOLOGICAL Hx Musculoskeletal Disorders: No Hx Falls: No - GASTROINTESTINAL Hx Gastrointestinal Disorders: Yes Hx Gastroesophageal Reflux: Yes - GENITOURINARY/GYNECOLOGICAL Hx Genitourinary Disorders: Yes (URGENCY) Hx Incontinence: Yes (only when on water pill) Hx Urinary Tract Infection: Yes - PSYCHIATRIC Hx Psychophysiologic Disorder: No Hx Substance Use: No - SURGICAL HISTORY Hx Surgeries: No (denies) - ANESTHESIA Hx Anesthesia: Yes Hx Anesthesia Reactions: No Hx Malignant Hyperthermia: No Meds Allergies/Adverse Reactions: Allergies Allergy/AdvReac Type Severity Reaction Status Date / Time No Known Allergies Allergy Verified 12/13/17 20:16 Physical Exam - Constitutional Appears: Well, Chronically Ill - Head Exam Head Exam: ATRAUMATIC, NORMOCEPHALIC - Eye Exam Eye Exam: EOMI. absent: PERRL (pupillary defect right, no response to light) - ENT Exam ENT Exam: Mucous Membranes Moist - Respiratory Exam Respiratory Exam: Rales. absent: Respiratory Distress - Cardiovascular Exam Cardiovascular Exam: REGULAR RHYTHM - GI/Abdominal Exam GI & Abdominal Exam: Soft. absent: Firm, Guarding, Rebound, Rigid, Tenderness - Extremities Exam Extremities exam: Positive for: pedal pulses present. Negative for: calf tenderness, pedal edema, tenderness - Neurological Exam Neurological exam: Alert Additional comments: oriented to person and place - Psychiatric Exam Psychiatric exam: Normal Affect, Normal Mood - Skin Skin Exam: Dry, Intact, Normal Color, Warm Results - Vital Signs Recent Vital Signs: Last Vital Signs Temp 98.4 F 01/01/18 14:20 Pulse 64 01/01/18 14:20 Resp 18 01/01/18 14:20 BP 120/63 01/01/18 16:41 Pulse Ox 100 01/01/18 14:20 - Labs Result Diagrams: 01/01/18 14:27 01/01/18 17:45 Labs: Laboratory Results - last 24 hr 01/01/18 01/01/18 01/01/18 14:27 14:34 14:34 WBC 5.5 RBC 5.53 Hgb 13.7 Hct 46.1 MCV 83.4 MCH 24.8 L MCHC 29.7 L RDW 21.5 H Plt Count 290 MPV 9.2 Gran % 62.6 Lymph % (Auto) 13.6 L [place] % (Auto) 22.7 H Eos % (Auto) 0.9 L Baso % (Auto) 0.2 Gran # 3.45 Lymph # (Auto) 0.8 L [place] # (Auto) 1.3 H Eos # (Auto) 0.1 Baso # (Auto) 0.01 Neutrophils % (Manual) 70 Lymphocytes % (Manual) 20 L Monocytes % (Manual) 10 H Platelet Evaluation Normal Anisocytosis (manual) 1+ Microcytosis (manual) 1+ PT 15.6 H INR 1.36 APTT 30.6 pCO2 pO2 50 HCO3 ABG pH ABG Total CO2 ABG O2 Saturation ABG O2 Content ABG Base Excess ABG Hemoglobin ABG Carboxyhemoglobin POC ABG HHb (Measured) ABG Methemoglobin ABG O2 Capacity VBG pH 7.30 L VBG pCO2 71.0 H* VBG HCO3 34.9 H VBG Total CO2 37.1 H VBG O2 Sat (Calc) 83.8 H VBG Base Excess 6.0 H VBG Potassium 7.7 H* Hgb O2 Saturation Sodium 128.0 L Chloride 97.0 L Glucose 107 H Lactate 1.2 FiO2 21.0 Venous Blood Potassium 7.7 H* Urine Color Urine Appearance Urine pH Ur Specific [place] Urine Protein Urine Glucose (UA) Urine Ketones Urine Blood Urine Nitrate Urine Bilirubin Urine Urobilinogen Ur Leukocyte Esterase Urine RBC Urine WBC Ur Epithelial Cells Urine Bacteria Influenza Typ A,B (EIA) 01/01/18 01/01/18 01/01/18 15:39 16:22 16:42 WBC RBC Hgb Hct MCV MCH MCHC RDW Plt Count MPV Gran % Lymph % (Auto) [place] % (Auto) Eos % (Auto) Baso % (Auto) Gran # Lymph # (Auto) [place] # (Auto) Eos # (Auto) Baso # (Auto) Neutrophils % (Manual) Lymphocytes % (Manual) Monocytes % (Manual) Platelet Evaluation Anisocytosis (manual) Microcytosis (manual) PT INR APTT pCO2 74 H* pO2 83.0 HCO3 33.2 H ABG pH 7.26 L ABG Total CO2 35.5 H ABG O2 Saturation 96.9 ABG O2 Content 18.1 ABG Base Excess 3.7 H ABG Hemoglobin 13.7 ABG Carboxyhemoglobin 2.7 H POC ABG HHb (Measured) 3.0 ABG Methemoglobin 0.5 ABG O2 Capacity 18.7 VBG pH VBG pCO2 VBG HCO3 VBG Total CO2 VBG O2 Sat (Calc) VBG Base Excess VBG Potassium Hgb O2 Saturation 93.8 L Sodium Chloride Glucose Lactate FiO2 50.0 Venous Blood Potassium Urine Color Yellow Urine Appearance Clear Urine pH 6.0 Ur Specific [place] 1.020 Urine Protein Trace H Urine Glucose (UA) Negative Urine Ketones Negative Urine Blood Negative Urine Nitrate Negative Urine Bilirubin Negative Urine Urobilinogen 0.2 Ur Leukocyte Esterase Negative Urine RBC Negative Urine WBC 1 - 3 Ur Epithelial Cells 4 - 5 Urine Bacteria Few Influenza Typ A,B (EIA) Negative for flu a/b Assessment & Plan - Assessment and Plan (Free Text) Assessment: 72 yr old female with PMH CHF, DVT/PE, TIA, GERD, HTN who presents with AMS and reported inability to use her BIPAP fro the past 3 days. Plan: neuro: - AOX2 (slight language barrier/BIPAP present) - moving all extremities pas midline - Head CT: no acute intracranial abnormalities possible right globus hemorrhage - will monitor HEENT: - Hx right eye infection after cataract surgery, blind in right eye x 1 yr - right pupil dilated, no reaction to light, denies pain - EOMI, no vision deficit left eye, left pupil ERRL - CT head: R globus hemorrhage - Opthomology consulted, recs appreciated Cardio: - pmh CHF - normotensive, nontachycardic - denies chest pain - pro BNP 20816 - troponin 0.01 - CXR: Right pleural effusion, cardiomegaly, pulmonary vascular congestion - EKG: normal sinus rythym, no ST changes, no signs of ischemia - Dr. Lake consulted, recs appreciated Pulm: - ab.26/ Co2 74/ O2 83/ HCO3 33 - CXR:Right pleural effusion, cardiomegaly, pulmonary vascular congestion - Crackles in lung bases bilaterally - c/w BIPAP overnight - Brovana and pulmicort - 40 mg solumedrol Q8 - repeat CXR in AM GI: - LUQ abdominal pain - soft NT, nondistended - no changes in BM - denies NV - transaminitis negative, normal bilirubin - lipase 40 - denies abdominal surgical history - will monitor Renal: - CMP Na 134 K 4.2 Cl 94 HCO3 33 BUN 31 Cr 1.3 - baseline normal renal fxn - Lasix 40 mg BID - repeat CMP in AM - will monitor Endo: - maintain euglycemia - will monitor Heme: - hgb/hct 13.7/46 - repeat CBC in AM - PLT 290 - hold coumadin d/t R globus bleed - f/u INR - will monitor ID: - afebrile, no leukocytosis (5.5) - no need for ABX at this time - will monitor DVT ppx held in setting of Right globus hemorrhage - Date & Time Date: 01/01/18 Time: 16:55 <Cedric Sheffield - Last Filed: 01/01/18 18:39> Meds - Medications Medications: Current Medications Arformoterol Tartrate (Brovana) 15 mcg IH [id number] RICHARD Budesonide (Pulmicort Respules) 0.25 mg IH [id number] RICHARD Furosemide (Lasix) 40 mg IVP BID RICHARD Methylprednisolone (Solu-Medrol) 40 mg IVP BID RICHARD Results - Vital Signs Recent Vital Signs: Last Vital Signs Temp 98.4 F 01/01/18 17:32 Pulse 64 01/01/18 17:32 Resp 16 01/01/18 17:32 BP 116/58 L 01/01/18 17:32 Pulse Ox 100 01/01/18 17:32 - Labs Result Diagrams: 01/01/18 14:27 01/01/18 17:45 Labs: Laboratory Results - last 24 hr 01/01/18 01/01/18 01/01/18 14:27 14:34 14:34 WBC 5.5 RBC 5.53 Hgb 13.7 Hct 46.1 MCV 83.4 MCH 24.8 L MCHC 29.7 L RDW 21.5 H Plt Count 290 MPV 9.2 Gran % 62.6 Lymph % (Auto) 13.6 L [place] % (Auto) 22.7 H Eos % (Auto) 0.9 L Baso % (Auto) 0.2 Gran # 3.45 Lymph # (Auto) 0.8 L [place] # (Auto) 1.3 H Eos # (Auto) 0.1 Baso # (Auto) 0.01 Neutrophils % (Manual) 70 Lymphocytes % (Manual) 20 L Monocytes % (Manual) 10 H Platelet Evaluation Normal Anisocytosis (manual) 1+ Microcytosis (manual) 1+ PT 15.6 H INR 1.36 APTT 30.6 pCO2 pO2 50 HCO3 ABG pH ABG Total CO2 ABG O2 Saturation ABG O2 Content ABG Base Excess ABG Hemoglobin ABG Carboxyhemoglobin POC ABG HHb (Measured) ABG Methemoglobin ABG O2 Capacity VBG pH 7.30 L VBG pCO2 71.0 H* VBG HCO3 34.9 H VBG Total CO2 37.1 H VBG O2 Sat (Calc) 83.8 H VBG Base Excess 6.0 H VBG Potassium 7.7 H* Hgb O2 Saturation Sodium 128.0 L Chloride 97.0 L Glucose 107 H Lactate 1.2 FiO2 21.0 Potassium Carbon Dioxide Anion Gap BUN Creatinine Est GFR ( Amer) Est GFR (Non-Af Amer) Random Glucose Calcium Magnesium Total Bilirubin AST ALT Alkaline Phosphatase Troponin I NT-Pro-B Natriuret Pep Total Protein Albumin Globulin Albumin/Globulin Ratio Lipase Venous Blood Potassium 7.7 H* Urine Color Urine Appearance Urine pH Ur Specific [place] Urine Protein Urine Glucose (UA) Urine Ketones Urine Blood Urine Nitrate Urine Bilirubin Urine Urobilinogen Ur Leukocyte Esterase Urine RBC Urine WBC Ur Epithelial Cells Urine Bacteria Influenza Typ A,B (EIA) 01/01/18 01/01/18 01/01/18 15:39 16:22 16:42 WBC RBC Hgb Hct MCV MCH MCHC RDW Plt Count MPV Gran % Lymph % (Auto) [place] % (Auto) Eos % (Auto) Baso % (Auto) Gran # Lymph # (Auto) [place] # (Auto) Eos # (Auto) Baso # (Auto) Neutrophils % (Manual) Lymphocytes % (Manual) Monocytes % (Manual) Platelet Evaluation Anisocytosis (manual) Microcytosis (manual) PT INR APTT pCO2 74 H* pO2 83.0 HCO3 33.2 H ABG pH 7.26 L ABG Total CO2 35.5 H ABG O2 Saturation 96.9 ABG O2 Content 18.1 ABG Base Excess 3.7 H ABG Hemoglobin 13.7 ABG Carboxyhemoglobin 2.7 H POC ABG HHb (Measured) 3.0 ABG Methemoglobin 0.5 ABG O2 Capacity 18.7 VBG pH VBG pCO2 VBG HCO3 VBG Total CO2 VBG O2 Sat (Calc) VBG Base Excess VBG Potassium Hgb O2 Saturation 93.8 L Sodium Chloride Glucose Lactate FiO2 50.0 Potassium Carbon Dioxide Anion Gap BUN Creatinine Est GFR ( Amer) Est GFR (Non-Af Amer) Random Glucose Calcium Magnesium Total Bilirubin AST ALT Alkaline Phosphatase Troponin I NT-Pro-B Natriuret Pep Total Protein Albumin Globulin Albumin/Globulin Ratio Lipase Venous Blood Potassium Urine Color Yellow Urine Appearance Clear Urine pH 6.0 Ur Specific [place] 1.020 Urine Protein Trace H Urine Glucose (UA) Negative Urine Ketones Negative Urine Blood Negative Urine Nitrate Negative Urine Bilirubin Negative Urine Urobilinogen 0.2 Ur Leukocyte Esterase Negative Urine RBC Negative Urine WBC 1 - 3 Ur Epithelial Cells 4 - 5 Urine Bacteria Few Influenza Typ A,B (EIA) Negative for flu a/b 01/01/18 17:45 WBC RBC Hgb Hct MCV MCH MCHC RDW Plt Count MPV Gran % Lymph % (Auto) [place] % (Auto) Eos % (Auto) Baso % (Auto) Gran # Lymph # (Auto) [place] # (Auto) Eos # (Auto) Baso # (Auto) Neutrophils % (Manual) Lymphocytes % (Manual) Monocytes % (Manual) Platelet Evaluation Anisocytosis (manual) Microcytosis (manual) PT INR APTT pCO2 pO2 HCO3 ABG pH ABG Total CO2 ABG O2 Saturation ABG O2 Content ABG Base Excess ABG Hemoglobin ABG Carboxyhemoglobin POC ABG HHb (Measured) ABG Methemoglobin ABG O2 Capacity VBG pH VBG pCO2 VBG HCO3 VBG Total CO2 VBG O2 Sat (Calc) VBG Base Excess VBG Potassium Hgb O2 Saturation Sodium 134 Chloride 94 L Glucose Lactate FiO2 Potassium 4.2 Carbon Dioxide 33 Anion Gap 10 BUN 31 H Creatinine 1.3 H Est GFR ( Amer) 48 Est GFR (Non-Af Amer) 40 Random Glucose 99 Calcium 8.5 Magnesium 2.3 H Total Bilirubin 0.4 AST 15 ALT 30 Alkaline Phosphatase 66 Troponin I 0.01 D NT-Pro-B Natriuret Pep 02400 H Total Protein 6.1 Albumin 3.2 Globulin 2.9 Albumin/Globulin Ratio 1.1 Lipase 40 Venous Blood Potassium Urine Color Urine Appearance Urine pH Ur Specific [place] Urine Protein Urine Glucose (UA) Urine Ketones Urine Blood Urine Nitrate Urine Bilirubin Urine Urobilinogen Ur Leukocyte Esterase Urine RBC Urine WBC Ur Epithelial Cells Urine Bacteria Influenza Typ A,B (EIA) Assessment & Plan - Assessment and Plan (Free Text) Plan: Patient seen and examined with resident, agree with note with following additions/exceptions: Patient is 72yo female with PMhx of HTN, GERD, 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 Currently afebrile, BP stable, comfortable in NAD, on BIPAP Labs, imaging, chart reviewed. ABG with mild resp acidosis, on BIPAP CT head noted Ophtho consulted CHF exacerbation COPD exacerbation Hypercapnia SOB Hx DVT/PE Recommend; - cont with BIPAP, repeat ABg in AM, duonebs, Solumedrol 40mg IV BID - Brovana, Pulmicort - Panculture, UCx, BCx, check Procal - BP control - Lasix IV diuresis - Cardiology consult - hold Coumadin - Ophtho consult - repeat cardiac enzymes - GI ppx - DVT ppx, SCDs - Admit to MICU Critical care time 35 minutes
[2018-01-01 18:00] LABS: ALB/GLOB RATIO 1.1 (1.1-1.8); ALBUMIN 3.2 g/dL (3.0-4.8); CALCIUM 8.5 mg/dL (8.4-10.5)
[2018-01-01 18:11] LABS: TROPONIN I 0.01 ng/mL
[2018-01-01] MEDS: MethylPREDNISolone 40 mg Vial IVP SCH (19:32)
[2018-01-01] MEDS: Budesonide 0.25 mg/2 ml Inhal Susp UD IH SCH (20:45)
[2018-01-01] MEDS: Arformoterol 15 mcg/2 ml Inh Sol IH SCH (20:45)
[2018-01-02 06:58] LABS: BASO # 0.01 K/mm3 (0.0-2.0); BASO % 0.2 % (0.0-3.0); GRAN # 4.43 (1.4-6.5); HEMOGLOBIN 13.8 g/dL (12.0-16.0); LYMPH # 0.5 (1.2-3.4); LYMPH % 9.6 % (22.0-35.0); MEAN CELL VOLUME 83.3 fl (80.0-105.0); MEAN CORPUSCULAR HEMOGLOBIN 24.6 pg (25.0-35.0); MEAN CORPUSCULAR HGB CONC 29.5 g/dl (31.0-37.0); MEAN PLATELET VOLUME 8.7 fl (7.0-11.0); MONO # 0.1 (0.1-0.6); MONO % 1.2 % (1.0-6.0); RBC 5.62 10^6/uL (3.5-6.1); RED CELL DISTRIBUTION WIDTH 21.4 % (11.5-14.5)
[2018-01-02 07:10] LABS: CALCIUM 8.6 mg/dL (8.4-10.5)
[2018-01-02 07:11] LABS: INR 1.53; PROTHROMBIN TIME 17.8 SECONDS (9.4-12.5)
[2018-01-02] MEDS: Budesonide 0.25 mg/2 ml Inhal Susp UD IH SCH ×2 (07:24→20:15)
[2018-01-02] MEDS: Arformoterol 15 mcg/2 ml Inh Sol IH SCH ×2 (07:24→20:14)
--- NOTE | 2018-01-02 08:17 | CP.CCUPN ---
<Maryana Sen - Last Filed: 01/02/18 10:41> CCU Subjective - Physician Review Subjective (Free Text): ICU Progress note for Dr. Sheffield Patient seen and examined this am at bedside. Patient is awake and alert. She is saturating well on 3l nc. She has no complaints and denies RANDLE, CP, SOB, ab dominal pain and extremity pain. 01/02/18 07:16 CCU Objective - Vital Signs / Intake & Output Vital Signs (Last 4 hours): Vital Signs Temp Pulse Resp BP Pulse Ox 01/02/18 07:28 70 01/02/18 06:00 64 01/02/18 05:40 99.1 F 01/02/18 05:30 68 64 H 93 L 01/02/18 05:20 64 54 H 94 L 01/02/18 05:10 68 69 H 95 01/02/18 05:00 69 55 H 125/61 93 L 01/02/18 04:50 63 49 H 93 L 01/02/18 04:40 62 79 H 93 L 01/02/18 04:30 62 92 L 01/02/18 04:20 60 93 L Intake and Output (Last 8hrs): Intake & Output 01/01/18 01/02/18 01/02/18 22:59 06:59 14:59 Intake Total 0 Output Total 200 Balance -200 Weight 204 lb 12.8 oz 204 lb 12.8 oz Intake: Oral 0 Output: Urine 200 Urine, Voided 200 Stool 0 Emesis 0 Other: Voiding Method Bedpan # Voids Urine, Voided 1 - Physical Exam Head: Positive for: Atraumatic, Normocephalic Pupils: Positive for: Other (there is a right pupillary defect and no response to light, difficult to visualize into posterior eye on ophthmalmascope exam) Extroacular Muscles: Positive for: EOMI Conjunctiva: Positive for: Normal Mouth: Positive for: Moist Mucous Membranes Neck: Positive for: Normal Range of Motion Respiratory/Chest: Positive for: Clear to Auscultation, Good Air Exchange. Negative for: Respiratory Distress, Accessory Muscle Use Cardiovascular: Positive for: Regular Rate and Rhythm, Normal S1, S2. Negative for: Murmurs Abdomen: Negative for: Tenderness, Distention, Peritoneal Signs Back: Positive for: Normal Inspection Upper Extremity: Positive for: Normal Inspection. Negative for: Cyanosis, Edema Lower Extremity: Positive for: Normal Inspection. Negative for: Edema Neurological: Positive for: GCS=15, CN II-XII Intact, Speech Normal Skin: Positive for: Warm, Dry, Normal Color. Negative for: Rashes Psychiatric: Positive for: Lethargic - Medications Active Medications: Active Medications Generic Name Dose Route Start Last Admin Trade Name Freq PRN Reason Stop Dose Admin Arformoterol Tartrate 15 mcg 01/01/18 20:00 01/02/18 07:24 Brovana IH 15 mcg [id number] RICHARD Administration Budesonide 0.25 mg 01/01/18 20:00 01/02/18 07:24 Pulmicort Respules IH 0.25 mg [id number] RICHARD Administration Furosemide 40 mg 01/01/18 18:00 01/01/18 19:31 Lasix IVP 40 mg BID RICHARD Administration Methylprednisolone 40 mg 01/01/18 18:00 01/01/18 19:32 Solu-Medrol IVP 40 mg BID RICHARD Administration - Patient Studies Lab Studies: Lab Studies 01/02/18 01/02/18 01/02/18 Range/Units 05:50 05:50 05:50 WBC 5.0 (4.5-11.0) 10^3/ul RBC 5.62 (3.5-6.1) 10^6/uL Hgb 13.8 (12.0-16.0) g/dL Hct 46.8 (36.0-48.0) % MCV 83.3 (80.0-105.0) fl MCH 24.6 L (25.0-35.0) pg MCHC 29.5 L (31.0-37.0) g/dl RDW 21.4 H (11.5-14.5) % Plt Count 253 (120.0-450.0) 10^3/uL MPV 8.7 (7.0-11.0) fl Gran % 89.0 H (50.0-68.0) % Lymph % (Auto) 9.6 L (22.0-35.0) % [place] % (Auto) 1.2 (1.0-6.0) % Eos % (Auto) 0.0 L (1.5-5.0) % Baso % (Auto) 0.2 (0.0-3.0) % Gran # 4.43 (1.4-6.5) Lymph # (Auto) 0.5 L (1.2-3.4) [place] # (Auto) 0.1 (0.1-0.6) Eos # (Auto) 0.0 (0.0-0.7) Baso # (Auto) 0.01 (0.0-2.0) K/mm3 Neutrophils % (Manual) (50.0-70.0) % Lymphocytes % (Manual) (22.0-35.0) % Monocytes % (Manual) (1.0-6.0) % Platelet Evaluation (NORMAL) Anisocytosis (manual) Microcytosis (manual) PT 17.8 H (9.4-12.5) SECONDS INR 1.53 APTT (25.1-36.5) Seconds pCO2 (35-45) mm/Hg pO2 (30-55) mm/Hg HCO3 (21-28) mmol/L ABG pH (7.35-7.45) ABG Total CO2 (22-28) mmol.L ABG O2 Saturation (95-98) % ABG O2 Content (15-23) ML/dl ABG Base Excess (-2.0-3.0) mmol/L ABG Hemoglobin (11.7-17.4) g/dL ABG Carboxyhemoglobin (0.5-1.5) % POC ABG HHb (Measured) (0-5) % ABG Methemoglobin (0.0-3.0) % ABG O2 Capacity (16-24) mL/dl VBG pH (7.32-7.43) VBG pCO2 (40-60) VBG HCO3 (21-28) mmol/l VBG Total CO2 (22-28) mmol.L VBG O2 Sat (Calc) (40-65) % VBG Base Excess (0.0-2.0) mmol/L VBG Potassium (3.6-5.2) mmol/L Hgb O2 Saturation (95.0-98.0) % Sodium 134 (132-148) mmol/L Chloride 94 L (98-107) mmol/L Glucose (65-105) mg/dl Lactate (0.7-2.1) mmol/L FiO2 % Potassium 4.4 (3.6-5.0) mmol/L Carbon Dioxide 33 (21-33) mmol/L Anion Gap 12 (10-20) BUN 30 H (7-21) mg/dL Creatinine 1.1 (0.7-1.2) mg/dl Est GFR ( Amer) 59 Est GFR (Non-Af Amer) 49 Random Glucose 110 (70-110) mg/dL Calcium 8.6 (8.4-10.5) mg/dL Phosphorus 5.3 H (2.5-4.5) mg/dL Magnesium 2.1 (1.7-2.2) mg/dL Total Bilirubin 0.3 (0.2-1.3) mg/dL AST 15 (14-36) U/L ALT 31 (7-56) U/L Alkaline Phosphatase 60 (38-126) U/L Troponin I ng/mL NT-Pro-B Natriuret Pep (0-450) pg/mL Total Protein 6.0 (5.8-8.3) g/dL Albumin 3.0 (3.0-4.8) g/dL Globulin 2.9 gm/dL Albumin/Globulin Ratio 1.0 L (1.1-1.8) Lipase (23-300) U/L Venous Blood Potassium (3.6-5.2) mmol/L Urine Color (YELLOW) Urine Appearance (CLEAR) Urine pH (4.7-8.0) Ur Specific [place] (1.005-1.035) Urine Protein (<30 mg/dL) mg/dL Urine Glucose (UA) (NEGATIVE) mg/dL Urine Ketones (NEGATIVE) mg/dL Urine Blood (NEGATIVE) Urine Nitrate (NEGATIVE) Urine Bilirubin (NEGATIVE) Urine Urobilinogen (<1 E.U./dL) E.U./dL Ur Leukocyte Esterase (NEGATIVE) Karen/uL Urine RBC (0-2) /hpf Urine WBC (0-6) /hpf Ur Epithelial Cells (0-5) /hpf Urine Bacteria (NEG) Influenza Typ A,B (EIA) (NEGATIVE) 01/01/18 01/01/18 01/01/18 Range/Units 17:45 16:42 16:22 WBC (4.5-11.0) 10^3/ul RBC (3.5-6.1) 10^6/uL Hgb (12.0-16.0) g/dL Hct (36.0-48.0) % MCV (80.0-105.0) fl MCH (25.0-35.0) pg MCHC (31.0-37.0) g/dl RDW (11.5-14.5) % Plt Count (120.0-450.0) 10^3/uL MPV (7.0-11.0) fl Gran % (50.0-68.0) % Lymph % (Auto) (22.0-35.0) % [place] % (Auto) (1.0-6.0) % Eos % (Auto) (1.5-5.0) % Baso % (Auto) (0.0-3.0) % Gran # (1.4-6.5) Lymph # (Auto) (1.2-3.4) [place] # (Auto) (0.1-0.6) Eos # (Auto) (0.0-0.7) Baso # (Auto) (0.0-2.0) K/mm3 Neutrophils % (Manual) (50.0-70.0) % Lymphocytes % (Manual) (22.0-35.0) % Monocytes % (Manual) (1.0-6.0) % Platelet Evaluation (NORMAL) Anisocytosis (manual) Microcytosis (manual) PT (9.4-12.5) SECONDS INR APTT (25.1-36.5) Seconds pCO2 74 H* (35-45) mm/Hg pO2 83.0 (30-55) mm/Hg HCO3 33.2 H (21-28) mmol/L ABG pH 7.26 L (7.35-7.45) ABG Total CO2 35.5 H (22-28) mmol.L ABG O2 Saturation 96.9 (95-98) % ABG O2 Content 18.1 (15-23) ML/dl ABG Base Excess 3.7 H (-2.0-3.0) mmol/L ABG Hemoglobin 13.7 (11.7-17.4) g/dL ABG Carboxyhemoglobin 2.7 H (0.5-1.5) % POC ABG HHb (Measured) 3.0 (0-5) % ABG Methemoglobin 0.5 (0.0-3.0) % ABG O2 Capacity 18.7 (16-24) mL/dl VBG pH (7.32-7.43) VBG pCO2 (40-60) VBG HCO3 (21-28) mmol/l VBG Total CO2 (22-28) mmol.L VBG O2 Sat (Calc) (40-65) % VBG Base Excess (0.0-2.0) mmol/L VBG Potassium (3.6-5.2) mmol/L Hgb O2 Saturation 93.8 L (95.0-98.0) % Sodium 134 (132-148) mmol/L Chloride 94 L (98-107) mmol/L Glucose (65-105) mg/dl Lactate (0.7-2.1) mmol/L FiO2 50.0 % Potassium 4.2 (3.6-5.0) mmol/L Carbon Dioxide 33 (21-33) mmol/L Anion Gap 10 (10-20) BUN 31 H (7-21) mg/dL Creatinine 1.3 H (0.7-1.2) mg/dl Est GFR ( Amer) 48 Est GFR (Non-Af Amer) 40 Random Glucose 99 (70-110) mg/dL Calcium 8.5 (8.4-10.5) mg/dL Phosphorus (2.5-4.5) mg/dL Magnesium 2.3 H (1.7-2.2) mg/dL Total Bilirubin 0.4 (0.2-1.3) mg/dL AST 15 (14-36) U/L ALT 30 (7-56) U/L Alkaline Phosphatase 66 (38-126) U/L Troponin I 0.01 D ng/mL NT-Pro-B Natriuret Pep [id number] H (0-450) pg/mL Total Protein 6.1 (5.8-8.3) g/dL Albumin 3.2 (3.0-4.8) g/dL Globulin 2.9 gm/dL Albumin/Globulin Ratio 1.1 (1.1-1.8) Lipase 40 (23-300) U/L Venous Blood Potassium (3.6-5.2) mmol/L Urine Color Yellow (YELLOW) Urine Appearance Clear (CLEAR) Urine pH 6.0 (4.7-8.0) Ur Specific [place] 1.020 (1.005-1.035) Urine Protein Trace H (<30 mg/dL) mg/dL Urine Glucose (UA) Negative (NEGATIVE) mg/dL Urine Ketones Negative (NEGATIVE) mg/dL Urine Blood Negative (NEGATIVE) Urine Nitrate Negative (NEGATIVE) Urine Bilirubin Negative (NEGATIVE) Urine Urobilinogen 0.2 (<1 E.U./dL) E.U./dL Ur Leukocyte Esterase Negative (NEGATIVE) Karen/uL Urine RBC Negative (0-2) /hpf Urine WBC 1 - 3 (0-6) /hpf Ur Epithelial Cells 4 - 5 (0-5) /hpf Urine Bacteria Few (NEG) Influenza Typ A,B (EIA) (NEGATIVE) 01/01/18 01/01/18 01/01/18 Range/Units 15:39 14:34 14:34 WBC (4.5-11.0) 10^3/ul RBC (3.5-6.1) 10^6/uL Hgb (12.0-16.0) g/dL Hct (36.0-48.0) % MCV (80.0-105.0) fl MCH (25.0-35.0) pg MCHC (31.0-37.0) g/dl RDW (11.5-14.5) % Plt Count (120.0-450.0) 10^3/uL MPV (7.0-11.0) fl Gran % (50.0-68.0) % Lymph % (Auto) (22.0-35.0) % [place] % (Auto) (1.0-6.0) % Eos % (Auto) (1.5-5.0) % Baso % (Auto) (0.0-3.0) % Gran # (1.4-6.5) Lymph # (Auto) (1.2-3.4) [place] # (Auto) (0.1-0.6) Eos # (Auto) (0.0-0.7) Baso # (Auto) (0.0-2.0) K/mm3 Neutrophils % (Manual) (50.0-70.0) % Lymphocytes % (Manual) (22.0-35.0) % Monocytes % (Manual) (1.0-6.0) % Platelet Evaluation (NORMAL) Anisocytosis (manual) Microcytosis (manual) PT 15.6 H (9.4-12.5) SECONDS INR 1.36 APTT 30.6 (25.1-36.5) Seconds pCO2 (35-45) mm/Hg pO2 50 (30-55) mm/Hg HCO3 (21-28) mmol/L ABG pH (7.35-7.45) ABG Total CO2 (22-28) mmol.L ABG O2 Saturation (95-98) % ABG O2 Content (15-23) ML/dl ABG Base Excess (-2.0-3.0) mmol/L ABG Hemoglobin (11.7-17.4) g/dL ABG Carboxyhemoglobin (0.5-1.5) % POC ABG HHb (Measured) (0-5) % ABG Methemoglobin (0.0-3.0) % ABG O2 Capacity (16-24) mL/dl VBG pH 7.30 L (7.32-7.43) VBG pCO2 71.0 H* (40-60) VBG HCO3 34.9 H (21-28) mmol/l VBG Total CO2 37.1 H (22-28) mmol.L VBG O2 Sat (Calc) 83.8 H (40-65) % VBG Base Excess 6.0 H (0.0-2.0) mmol/L VBG Potassium 7.7 H* (3.6-5.2) mmol/L Hgb O2 Saturation (95.0-98.0) % Sodium 128.0 L (132-148) mmol/L Chloride 97.0 L (98-107) mmol/L Glucose 107 H (65-105) mg/dl Lactate 1.2 (0.7-2.1) mmol/L FiO2 21.0 % Potassium (3.6-5.0) mmol/L Carbon Dioxide (21-33) mmol/L Anion Gap (10-20) BUN (7-21) mg/dL Creatinine (0.7-1.2) mg/dl Est GFR ( Amer) Est GFR (Non-Af Amer) Random Glucose (70-110) mg/dL Calcium (8.4-10.5) mg/dL Phosphorus (2.5-4.5) mg/dL Magnesium (1.7-2.2) mg/dL Total Bilirubin (0.2-1.3) mg/dL AST (14-36) U/L ALT (7-56) U/L Alkaline Phosphatase (38-126) U/L Troponin I ng/mL NT-Pro-B Natriuret Pep (0-450) pg/mL Total Protein (5.8-8.3) g/dL Albumin (3.0-4.8) g/dL Globulin gm/dL Albumin/Globulin Ratio (1.1-1.8) Lipase (23-300) U/L Venous Blood Potassium 7.7 H* (3.6-5.2) mmol/L Urine Color (YELLOW) Urine Appearance (CLEAR) Urine pH (4.7-8.0) Ur Specific [place] (1.005-1.035) Urine Protein (<30 mg/dL) mg/dL Urine Glucose (UA) (NEGATIVE) mg/dL Urine Ketones (NEGATIVE) mg/dL Urine Blood (NEGATIVE) Urine Nitrate (NEGATIVE) Urine Bilirubin (NEGATIVE) Urine Urobilinogen (<1 E.U./dL) E.U./dL Ur Leukocyte Esterase (NEGATIVE) Karen/uL Urine RBC (0-2) /hpf Urine WBC (0-6) /hpf Ur Epithelial Cells (0-5) /hpf Urine Bacteria (NEG) Influenza Typ A,B (EIA) Negative for flu a/b (NEGATIVE) 01/01/18 Range/Units 14:27 WBC 5.5 (4.5-11.0) 10^3/ul RBC 5.53 (3.5-6.1) 10^6/uL Hgb 13.7 (12.0-16.0) g/dL Hct 46.1 (36.0-48.0) % MCV 83.4 (80.0-105.0) fl MCH 24.8 L (25.0-35.0) pg MCHC 29.7 L (31.0-37.0) g/dl RDW 21.5 H (11.5-14.5) % Plt Count 290 (120.0-450.0) 10^3/uL MPV 9.2 (7.0-11.0) fl Gran % 62.6 (50.0-68.0) % Lymph % (Auto) 13.6 L (22.0-35.0) % [place] % (Auto) 22.7 H (1.0-6.0) % Eos % (Auto) 0.9 L (1.5-5.0) % Baso % (Auto) 0.2 (0.0-3.0) % Gran # 3.45 (1.4-6.5) Lymph # (Auto) 0.8 L (1.2-3.4) [place] # (Auto) 1.3 H (0.1-0.6) Eos # (Auto) 0.1 (0.0-0.7) Baso # (Auto) 0.01 (0.0-2.0) K/mm3 Neutrophils % (Manual) 70 (50.0-70.0) % Lymphocytes % (Manual) 20 L (22.0-35.0) % Monocytes % (Manual) 10 H (1.0-6.0) % Platelet Evaluation Normal (NORMAL) Anisocytosis (manual) 1+ Microcytosis (manual) 1+ PT (9.4-12.5) SECONDS INR APTT (25.1-36.5) Seconds pCO2 (35-45) mm/Hg pO2 (30-55) mm/Hg HCO3 (21-28) mmol/L ABG pH (7.35-7.45) ABG Total CO2 (22-28) mmol.L ABG O2 Saturation (95-98) % ABG O2 Content (15-23) ML/dl ABG Base Excess (-2.0-3.0) mmol/L ABG Hemoglobin (11.7-17.4) g/dL ABG Carboxyhemoglobin (0.5-1.5) % POC ABG HHb (Measured) (0-5) % ABG Methemoglobin (0.0-3.0) % ABG O2 Capacity (16-24) mL/dl VBG pH (7.32-7.43) VBG pCO2 (40-60) VBG HCO3 (21-28) mmol/l VBG Total CO2 (22-28) mmol.L VBG O2 Sat (Calc) (40-65) % VBG Base Excess (0.0-2.0) mmol/L VBG Potassium (3.6-5.2) mmol/L Hgb O2 Saturation (95.0-98.0) % Sodium (132-148) mmol/L Chloride (98-107) mmol/L Glucose (65-105) mg/dl Lactate (0.7-2.1) mmol/L FiO2 % Potassium (3.6-5.0) mmol/L Carbon Dioxide (21-33) mmol/L Anion Gap (10-20) BUN (7-21) mg/dL Creatinine (0.7-1.2) mg/dl Est GFR ( Amer) Est GFR (Non-Af Amer) Random Glucose (70-110) mg/dL Calcium (8.4-10.5) mg/dL Phosphorus (2.5-4.5) mg/dL Magnesium (1.7-2.2) mg/dL Total Bilirubin (0.2-1.3) mg/dL AST (14-36) U/L ALT (7-56) U/L Alkaline Phosphatase (38-126) U/L Troponin I ng/mL NT-Pro-B Natriuret Pep (0-450) pg/mL Total Protein (5.8-8.3) g/dL Albumin (3.0-4.8) g/dL Globulin gm/dL Albumin/Globulin Ratio (1.1-1.8) Lipase (23-300) U/L Venous Blood Potassium (3.6-5.2) mmol/L Urine Color (YELLOW) Urine Appearance (CLEAR) Urine pH (4.7-8.0) Ur Specific [place] (1.005-1.035) Urine Protein (<30 mg/dL) mg/dL Urine Glucose (UA) (NEGATIVE) mg/dL Urine Ketones (NEGATIVE) mg/dL Urine Blood (NEGATIVE) Urine Nitrate (NEGATIVE) Urine Bilirubin (NEGATIVE) Urine Urobilinogen (<1 E.U./dL) E.U./dL Ur Leukocyte Esterase (NEGATIVE) Karen/uL Urine RBC (0-2) /hpf Urine WBC (0-6) /hpf Ur Epithelial Cells (0-5) /hpf Urine Bacteria (NEG) Influenza Typ A,B (EIA) (NEGATIVE) Laboratory Results - last 24 hr 01/01/18 01/01/18 01/01/18 14:27 14:34 14:34 WBC 5.5 RBC 5.53 Hgb 13.7 Hct 46.1 MCV 83.4 MCH 24.8 L MCHC 29.7 L RDW 21.5 H Plt Count 290 MPV 9.2 Gran % 62.6 Lymph % (Auto) 13.6 L [place] % (Auto) 22.7 H Eos % (Auto) 0.9 L Baso % (Auto) 0.2 Gran # 3.45 Lymph # (Auto) 0.8 L [place] # (Auto) 1.3 H Eos # (Auto) 0.1 Baso # (Auto) 0.01 Neutrophils % (Manual) 70 Lymphocytes % (Manual) 20 L Monocytes % (Manual) 10 H Platelet Evaluation Normal Anisocytosis (manual) 1+ Microcytosis (manual) 1+ PT 15.6 H INR 1.36 APTT 30.6 pCO2 pO2 50 HCO3 ABG pH ABG Total CO2 ABG O2 Saturation ABG O2 Content ABG Base Excess ABG Hemoglobin ABG Carboxyhemoglobin POC ABG HHb (Measured) ABG Methemoglobin ABG O2 Capacity VBG pH 7.30 L VBG pCO2 71.0 H* VBG HCO3 34.9 H VBG Total CO2 37.1 H VBG O2 Sat (Calc) 83.8 H VBG Base Excess 6.0 H VBG Potassium 7.7 H* Hgb O2 Saturation Sodium 128.0 L Chloride 97.0 L Glucose 107 H Lactate 1.2 FiO2 21.0 Potassium Carbon Dioxide Anion Gap BUN Creatinine Est GFR ( Amer) Est GFR (Non-Af Amer) Random Glucose Calcium Phosphorus Magnesium Total Bilirubin AST ALT Alkaline Phosphatase Troponin I NT-Pro-B Natriuret Pep Total Protein Albumin Globulin Albumin/Globulin Ratio Lipase Venous Blood Potassium 7.7 H* Urine Color Urine Appearance Urine pH Ur Specific [place] Urine Protein Urine Glucose (UA) Urine Ketones Urine Blood Urine Nitrate Urine Bilirubin Urine Urobilinogen Ur Leukocyte Esterase Urine RBC Urine WBC Ur Epithelial Cells Urine Bacteria Influenza Typ A,B (EIA) 01/01/18 01/01/18 01/01/18 15:39 16:22 16:42 WBC RBC Hgb Hct MCV MCH MCHC RDW Plt Count MPV Gran % Lymph % (Auto) [place] % (Auto) Eos % (Auto) Baso % (Auto) Gran # Lymph # (Auto) [place] # (Auto) Eos # (Auto) Baso # (Auto) Neutrophils % (Manual) Lymphocytes % (Manual) Monocytes % (Manual) Platelet Evaluation Anisocytosis (manual) Microcytosis (manual) PT INR APTT pCO2 74 H* pO2 83.0 HCO3 33.2 H ABG pH 7.26 L ABG Total CO2 35.5 H ABG O2 Saturation 96.9 ABG O2 Content 18.1 ABG Base Excess 3.7 H ABG Hemoglobin 13.7 ABG Carboxyhemoglobin 2.7 H POC ABG HHb (Measured) 3.0 ABG Methemoglobin 0.5 ABG O2 Capacity 18.7 VBG pH VBG pCO2 VBG HCO3 VBG Total CO2 VBG O2 Sat (Calc) VBG Base Excess VBG Potassium Hgb O2 Saturation 93.8 L Sodium Chloride Glucose Lactate FiO2 50.0 Potassium Carbon Dioxide Anion Gap BUN Creatinine Est GFR ( Amer) Est GFR (Non-Af Amer) Random Glucose Calcium Phosphorus Magnesium Total Bilirubin AST ALT Alkaline Phosphatase Troponin I NT-Pro-B Natriuret Pep Total Protein Albumin Globulin Albumin/Globulin Ratio Lipase Venous Blood Potassium Urine Color Yellow Urine Appearance Clear Urine pH 6.0 Ur Specific [place] 1.020 Urine Protein Trace H Urine Glucose (UA) Negative Urine Ketones Negative Urine Blood Negative Urine Nitrate Negative Urine Bilirubin Negative Urine Urobilinogen 0.2 Ur Leukocyte Esterase Negative Urine RBC Negative Urine WBC 1 - 3 Ur Epithelial Cells 4 - 5 Urine Bacteria Few Influenza Typ A,B (EIA) Negative for flu a/b 01/01/18 01/02/18 01/02/18 17:45 05:50 05:50 WBC 5.0 RBC 5.62 Hgb 13.8 Hct 46.8 MCV 83.3 MCH 24.6 L MCHC 29.5 L RDW 21.4 H Plt Count 253 MPV 8.7 Gran % 89.0 H Lymph % (Auto) 9.6 L [place] % (Auto) 1.2 Eos % (Auto) 0.0 L Baso % (Auto) 0.2 Gran # 4.43 Lymph # (Auto) 0.5 L [place] # (Auto) 0.1 Eos # (Auto) 0.0 Baso # (Auto) 0.01 Neutrophils % (Manual) Lymphocytes % (Manual) Monocytes % (Manual) Platelet Evaluation Anisocytosis (manual) Microcytosis (manual) PT 17.8 H INR 1.53 APTT pCO2 pO2 HCO3 ABG pH ABG Total CO2 ABG O2 Saturation ABG O2 Content ABG Base Excess ABG Hemoglobin ABG Carboxyhemoglobin POC ABG HHb (Measured) ABG Methemoglobin ABG O2 Capacity VBG pH VBG pCO2 VBG HCO3 VBG Total CO2 VBG O2 Sat (Calc) VBG Base Excess VBG Potassium Hgb O2 Saturation Sodium 134 Chloride 94 L Glucose Lactate FiO2 Potassium 4.2 Carbon Dioxide 33 Anion Gap 10 BUN 31 H Creatinine 1.3 H Est GFR ( Amer) 48 Est GFR (Non-Af Amer) 40 Random Glucose 99 Calcium 8.5 Phosphorus Magnesium 2.3 H Total Bilirubin 0.4 AST 15 ALT 30 Alkaline Phosphatase 66 Troponin I 0.01 D NT-Pro-B Natriuret Pep 56851 H Total Protein 6.1 Albumin 3.2 Globulin 2.9 Albumin/Globulin Ratio 1.1 Lipase 40 Venous Blood Potassium Urine Color Urine Appearance Urine pH Ur Specific [place] Urine Protein Urine Glucose (UA) Urine Ketones Urine Blood Urine Nitrate Urine Bilirubin Urine Urobilinogen Ur Leukocyte Esterase Urine RBC Urine WBC Ur Epithelial Cells Urine Bacteria Influenza Typ A,B (EIA) 01/02/18 05:50 WBC RBC Hgb Hct MCV MCH MCHC RDW Plt Count MPV Gran % Lymph % (Auto) [place] % (Auto) Eos % (Auto) Baso % (Auto) Gran # Lymph # (Auto) [place] # (Auto) Eos # (Auto) Baso # (Auto) Neutrophils % (Manual) Lymphocytes % (Manual) Monocytes % (Manual) Platelet Evaluation Anisocytosis (manual) Microcytosis (manual) PT INR APTT pCO2 pO2 HCO3 ABG pH ABG Total CO2 ABG O2 Saturation ABG O2 Content ABG Base Excess ABG Hemoglobin ABG Carboxyhemoglobin POC ABG HHb (Measured) ABG Methemoglobin ABG O2 Capacity VBG pH VBG pCO2 VBG HCO3 VBG Total CO2 VBG O2 Sat (Calc) VBG Base Excess VBG Potassium Hgb O2 Saturation Sodium 134 Chloride 94 L Glucose Lactate FiO2 Potassium 4.4 Carbon Dioxide 33 Anion Gap 12 BUN 30 H Creatinine 1.1 Est GFR ( Amer) 59 Est GFR (Non-Af Amer) 49 Random Glucose 110 Calcium 8.6 Phosphorus 5.3 H Magnesium 2.1 Total Bilirubin 0.3 AST 15 ALT 31 Alkaline Phosphatase 60 Troponin I NT-Pro-B Natriuret Pep Total Protein 6.0 Albumin 3.0 Globulin 2.9 Albumin/Globulin Ratio 1.0 L Lipase Venous Blood Potassium Urine Color Urine Appearance Urine pH Ur Specific [place] Urine Protein Urine Glucose (UA) Urine Ketones Urine Blood Urine Nitrate Urine Bilirubin Urine Urobilinogen Ur Leukocyte Esterase Urine RBC Urine WBC Ur Epithelial Cells Urine Bacteria Influenza Typ A,B (EIA) EKG/Cardiology Studies: Cardiology / EKG Studies 01/01/18 14:34 EKG [ELECTROCARDIOGRAM] Stat Comment: Reason For Exam: chest pain Review of Systems - Review of Systems All systems: reviewed and no additional remarkable complaints except Review of Systems: as per HPI Critical Care Progress Note - Prophylaxis GI Prophylaxis GI: PPI - Prophylaxis DVT Prophylaxis DVT: SCDs - Nutrition Nutrition: Nutrition Category Date Time Status Heart Healthy Diet [DIET] Diets 01/02/18 Breakfast Active Assessment/Plan - Assessment and Plan (Free Text) Assessment: Patient is 72yo female with PMhx of HTN, GERD, 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 patient is alert and oriented. will continue on O2NC today and monitor for respiratory improvement. Plan: neuro: - AOX3 - moving all extremities past midline - Head CT: no acute intracranial abnormalities possible right globus hemorrhage - will monitor HEENT: - Hx right eye infection after cataract surgery, blind in right eye x 1 yr - right pupil dilated, no reaction to light, denies pain - EOMI, no vision deficit left eye, left pupil ERRL - CT head: R globus hemorrhage - Opthomology consulted, recs appreciated Cardio: - pmh CHF - normotensive, nontachycardic - denies chest pain - pro BNP [id number] - troponin 0.01 - home coreg restarted to avoid rebound tachycardia - CXR: Right pleural effusion, cardiomegaly, pulmonary vascular congestion - EKG: normal sinus rythym, no ST changes, no signs of ischemia - Dr. Lake consulted, recs appreciated Pulm: - ab.26/ Co2 74/ O2 83/ HCO3 33 - CXR:Right pleural effusion, cardiomegaly, pulmonary vascular congestion - Crackles in lung bases bilaterally - c/w BIPAP overnight - Brovana and pulmicort - revatio restarted for pulmonary hypertension - 40 mg solumedrol Q8 - repeat CXR in AM GI: - LUQ abdominal pain - soft NT, nondistended - no changes in BM - denies NV - transaminitis negative, normal bilirubin - lipase 40 - denies abdominal surgical history - HHD - will monitor Renal: - CMP Na 134 K 4.4 Cl 94 HCO3 33 BUN 30 Cr 1.1 - baseline normal renal fxn - Lasix 40 mg BID - repeat CMP in AM - will monitor Endo: - maintain euglycemia - will monitor Heme: - hgb/hct 13.8/47 - repeat CBC in AM - PLT 253 - hold coumadin d/t R globus bleed - f/u INR - will monitor ID: - afebrile, no leukocytosis (5) - no need for ABX at this time - will monitor DVT ppx held in setting of Right globus hemorrhage Patient seen and discussed with Dr. Sheffield - Date & Time Date: 01/02/18 Time: 07:15 <Cedric Sheffield - Last Filed: 01/02/18 12:20> CCU Objective - Vital Signs / Intake & Output Vital Signs (Last 4 hours): Vital Signs BP 01/02/18 11:04 134/62 Intake and Output (Last 8hrs): Intake & Output 01/01/18 01/02/18 01/02/18 22:59 06:59 14:59 Intake Total 0 Output Total 200 Balance -200 Weight 204 lb 12.8 oz 204 lb 12.8 oz Intake: Oral 0 Output: Urine 200 Urine, Voided 200 Stool 0 Emesis 0 Other: Voiding Method Bedpan # Voids Urine, Voided 1 - Medications Active Medications: Active Medications Generic Name Dose Route Start Last Admin Trade Name Freq PRN Reason Stop Dose Admin Arformoterol Tartrate 15 mcg 01/01/18 20:00 01/02/18 07:24 Brovana IH 15 mcg [id number] RICHARD Administration Budesonide 0.25 mg 01/01/18 20:00 01/02/18 07:24 Pulmicort Respules IH 0.25 mg [id number] RICHARD Administration Carvedilol 6.25 mg 01/02/18 10:30 01/02/18 11:49 Coreg PO Not Given BID RICHARD Furosemide 40 mg 01/01/18 18:00 01/02/18 11:04 Lasix IVP 40 mg BID RICHARD Administration Methylprednisolone 40 mg 01/01/18 18:00 01/02/18 11:05 Solu-Medrol IVP 40 mg BID RICHARD Administration Sildenafil Citrate 20 mg 01/02/18 14:00 Revatio PO TID RICHARD - Patient Studies Lab Studies: Lab Studies 01/02/18 01/02/18 01/02/18 Range/Units 07:03 05:50 05:50 WBC (4.5-11.0) 10^3/ul RBC (3.5-6.1) 10^6/uL Hgb (12.0-16.0) g/dL Hct (36.0-48.0) % MCV (80.0-105.0) fl MCH (25.0-35.0) pg MCHC (31.0-37.0) g/dl RDW (11.5-14.5) % Plt Count (120.0-450.0) 10^3/uL MPV (7.0-11.0) fl Gran % (50.0-68.0) % Lymph % (Auto) (22.0-35.0) % [place] % (Auto) (1.0-6.0) % Eos % (Auto) (1.5-5.0) % Baso % (Auto) (0.0-3.0) % Gran # (1.4-6.5) Lymph # (Auto) (1.2-3.4) [place] # (Auto) (0.1-0.6) Eos # (Auto) (0.0-0.7) Baso # (Auto) (0.0-2.0) K/mm3 Neutrophils % (Manual) (50.0-70.0) % Lymphocytes % (Manual) (22.0-35.0) % Monocytes % (Manual) (1.0-6.0) % Platelet Evaluation (NORMAL) Anisocytosis (manual) Microcytosis (manual) PT 17.8 H (9.4-12.5) SECONDS INR 1.53 APTT (25.1-36.5) Seconds pCO2 72 H* (35-45) mm/Hg pO2 90.0 (30-55) mm/Hg HCO3 34.6 H (21-28) mmol/L ABG pH 7.29 L (7.35-7.45) ABG Total CO2 36.8 H (22-28) mmol.L ABG O2 Saturation 97.7 (95-98) % ABG O2 Content 18.5 (15-23) ML/dl ABG Base Excess 5.5 H (-2.0-3.0) mmol/L ABG Hemoglobin 13.8 (11.7-17.4) g/dL ABG Carboxyhemoglobin 2.1 H (0.5-1.5) % POC ABG HHb (Measured) 2.2 (0-5) % ABG Methemoglobin 0.9 (0.0-3.0) % ABG O2 Capacity 18.9 (16-24) mL/dl VBG pH (7.32-7.43) VBG pCO2 (40-60) VBG HCO3 (21-28) mmol/l VBG Total CO2 (22-28) mmol.L VBG O2 Sat (Calc) (40-65) % VBG Base Excess (0.0-2.0) mmol/L VBG Potassium (3.6-5.2) mmol/L Hgb O2 Saturation 94.8 L (95.0-98.0) % Sodium 134 (132-148) mmol/L Chloride 94 L (98-107) mmol/L Glucose (65-105) mg/dl Lactate (0.7-2.1) mmol/L FiO2 40.0 % Potassium 4.4 (3.6-5.0) mmol/L Carbon Dioxide 33 (21-33) mmol/L Anion Gap 12 (10-20) BUN 30 H (7-21) mg/dL Creatinine 1.1 (0.7-1.2) mg/dl Est GFR ( Amer) 59 Est GFR (Non-Af Amer) 49 Random Glucose 110 (70-110) mg/dL Calcium 8.6 (8.4-10.5) mg/dL Phosphorus 5.3 H (2.5-4.5) mg/dL Magnesium 2.1 (1.7-2.2) mg/dL Total Bilirubin 0.3 (0.2-1.3) mg/dL AST 15 (14-36) U/L ALT 31 (7-56) U/L Alkaline Phosphatase 60 (38-126) U/L Troponin I ng/mL NT-Pro-B Natriuret Pep (0-450) pg/mL Total Protein 6.0 (5.8-8.3) g/dL Albumin 3.0 (3.0-4.8) g/dL Globulin 2.9 gm/dL Albumin/Globulin Ratio 1.0 L (1.1-1.8) Lipase (23-300) U/L Venous Blood Potassium (3.6-5.2) mmol/L Urine Color (YELLOW) Urine Appearance (CLEAR) Urine pH (4.7-8.0) Ur Specific [place] (1.005-1.035) Urine Protein (<30 mg/dL) mg/dL Urine Glucose (UA) (NEGATIVE) mg/dL Urine Ketones (NEGATIVE) mg/dL Urine Blood (NEGATIVE) Urine Nitrate (NEGATIVE) Urine Bilirubin (NEGATIVE) Urine Urobilinogen (<1 E.U./dL) E.U./dL Ur Leukocyte Esterase (NEGATIVE) Karen/uL Urine RBC (0-2) /hpf Urine WBC (0-6) /hpf Ur Epithelial Cells (0-5) /hpf Urine Bacteria (NEG) Influenza Typ A,B (EIA) (NEGATIVE) 01/02/18 01/01/18 01/01/18 Range/Units 05:50 17:45 16:42 WBC 5.0 (4.5-11.0) 10^3/ul RBC 5.62 (3.5-6.1) 10^6/uL Hgb 13.8 (12.0-16.0) g/dL Hct 46.8 (36.0-48.0) % MCV 83.3 (80.0-105.0) fl MCH 24.6 L (25.0-35.0) pg MCHC 29.5 L (31.0-37.0) g/dl RDW 21.4 H (11.5-14.5) % Plt Count 253 (120.0-450.0) 10^3/uL MPV 8.7 (7.0-11.0) fl Gran % 89.0 H (50.0-68.0) % Lymph % (Auto) 9.6 L (22.0-35.0) % [place] % (Auto) 1.2 (1.0-6.0) % Eos % (Auto) 0.0 L (1.5-5.0) % Baso % (Auto) 0.2 (0.0-3.0) % Gran # 4.43 (1.4-6.5) Lymph # (Auto) 0.5 L (1.2-3.4) [place] # (Auto) 0.1 (0.1-0.6) Eos # (Auto) 0.0 (0.0-0.7) Baso # (Auto) 0.01 (0.0-2.0) K/mm3 Neutrophils % (Manual) (50.0-70.0) % Lymphocytes % (Manual) (22.0-35.0) % Monocytes % (Manual) (1.0-6.0) % Platelet Evaluation (NORMAL) Anisocytosis (manual) Microcytosis (manual) PT (9.4-12.5) SECONDS INR APTT (25.1-36.5) Seconds pCO2 (35-45) mm/Hg pO2 (30-55) mm/Hg HCO3 (21-28) mmol/L ABG pH (7.35-7.45) ABG Total CO2 (22-28) mmol.L ABG O2 Saturation (95-98) % ABG O2 Content (15-23) ML/dl ABG Base Excess (-2.0-3.0) mmol/L ABG Hemoglobin (11.7-17.4) g/dL ABG Carboxyhemoglobin (0.5-1.5) % POC ABG HHb (Measured) (0-5) % ABG Methemoglobin (0.0-3.0) % ABG O2 Capacity (16-24) mL/dl VBG pH (7.32-7.43) VBG pCO2 (40-60) VBG HCO3 (21-28) mmol/l VBG Total CO2 (22-28) mmol.L VBG O2 Sat (Calc) (40-65) % VBG Base Excess (0.0-2.0) mmol/L VBG Potassium (3.6-5.2) mmol/L Hgb O2 Saturation (95.0-98.0) % Sodium 134 (132-148) mmol/L Chloride 94 L (98-107) mmol/L Glucose (65-105) mg/dl Lactate (0.7-2.1) mmol/L FiO2 % Potassium 4.2 (3.6-5.0) mmol/L Carbon Dioxide 33 (21-33) mmol/L Anion Gap 10 (10-20) BUN 31 H (7-21) mg/dL Creatinine 1.3 H (0.7-1.2) mg/dl Est GFR ( Amer) 48 Est GFR (Non-Af Amer) 40 Random Glucose 99 (70-110) mg/dL Calcium 8.5 (8.4-10.5) mg/dL Phosphorus (2.5-4.5) mg/dL Magnesium 2.3 H (1.7-2.2) mg/dL Total Bilirubin 0.4 (0.2-1.3) mg/dL AST 15 (14-36) U/L ALT 30 (7-56) U/L Alkaline Phosphatase 66 (38-126) U/L Troponin I 0.01 D ng/mL NT-Pro-B Natriuret Pep 23139 H (0-450) pg/mL Total Protein 6.1 (5.8-8.3) g/dL Albumin 3.2 (3.0-4.8) g/dL Globulin 2.9 gm/dL Albumin/Globulin Ratio 1.1 (1.1-1.8) Lipase 40 (23-300) U/L Venous Blood Potassium (3.6-5.2) mmol/L Urine Color Yellow (YELLOW) Urine Appearance Clear (CLEAR) Urine pH 6.0 (4.7-8.0) Ur Specific [place] 1.020 (1.005-1.035) Urine Protein Trace H (<30 mg/dL) mg/dL Urine Glucose (UA) Negative (NEGATIVE) mg/dL Urine Ketones Negative (NEGATIVE) mg/dL Urine Blood Negative (NEGATIVE) Urine Nitrate Negative (NEGATIVE) Urine Bilirubin Negative (NEGATIVE) Urine Urobilinogen 0.2 (<1 E.U./dL) E.U./dL Ur Leukocyte Esterase Negative (NEGATIVE) Karen/uL Urine RBC Negative (0-2) /hpf Urine WBC 1 - 3 (0-6) /hpf Ur Epithelial Cells 4 - 5 (0-5) /hpf Urine Bacteria Few (NEG) Influenza Typ A,B (EIA) (NEGATIVE) 01/01/18 01/01/18 01/01/18 Range/Units 16:22 15:39 14:34 WBC (4.5-11.0) 10^3/ul RBC (3.5-6.1) 10^6/uL Hgb (12.0-16.0) g/dL Hct (36.0-48.0) % MCV (80.0-105.0) fl MCH (25.0-35.0) pg MCHC (31.0-37.0) g/dl RDW (11.5-14.5) % Plt Count (120.0-450.0) 10^3/uL MPV (7.0-11.0) fl Gran % (50.0-68.0) % Lymph % (Auto) (22.0-35.0) % [place] % (Auto) (1.0-6.0) % Eos % (Auto) (1.5-5.0) % Baso % (Auto) (0.0-3.0) % Gran # (1.4-6.5) Lymph # (Auto) (1.2-3.4) [place] # (Auto) (0.1-0.6) Eos # (Auto) (0.0-0.7) Baso # (Auto) (0.0-2.0) K/mm3 Neutrophils % (Manual) (50.0-70.0) % Lymphocytes % (Manual) (22.0-35.0) % Monocytes % (Manual) (1.0-6.0) % Platelet Evaluation (NORMAL) Anisocytosis (manual) Microcytosis (manual) PT 15.6 H (9.4-12.5) SECONDS INR 1.36 APTT 30.6 (25.1-36.5) Seconds pCO2 74 H* (35-45) mm/Hg pO2 83.0 (30-55) mm/Hg HCO3 33.2 H (21-28) mmol/L ABG pH 7.26 L (7.35-7.45) ABG Total CO2 35.5 H (22-28) mmol.L ABG O2 Saturation 96.9 (95-98) % ABG O2 Content 18.1 (15-23) ML/dl ABG Base Excess 3.7 H (-2.0-3.0) mmol/L ABG Hemoglobin 13.7 (11.7-17.4) g/dL ABG Carboxyhemoglobin 2.7 H (0.5-1.5) % POC ABG HHb (Measured) 3.0 (0-5) % ABG Methemoglobin 0.5 (0.0-3.0) % ABG O2 Capacity 18.7 (16-24) mL/dl VBG pH (7.32-7.43) VBG pCO2 (40-60) VBG HCO3 (21-28) mmol/l VBG Total CO2 (22-28) mmol.L VBG O2 Sat (Calc) (40-65) % VBG Base Excess (0.0-2.0) mmol/L VBG Potassium (3.6-5.2) mmol/L Hgb O2 Saturation 93.8 L (95.0-98.0) % Sodium (132-148) mmol/L Chloride (98-107) mmol/L Glucose (65-105) mg/dl Lactate (0.7-2.1) mmol/L FiO2 50.0 % Potassium (3.6-5.0) mmol/L Carbon Dioxide (21-33) mmol/L Anion Gap (10-20) BUN (7-21) mg/dL Creatinine (0.7-1.2) mg/dl Est GFR ( Amer) Est GFR (Non-Af Amer) Random Glucose (70-110) mg/dL Calcium (8.4-10.5) mg/dL Phosphorus (2.5-4.5) mg/dL Magnesium (1.7-2.2) mg/dL Total Bilirubin (0.2-1.3) mg/dL AST (14-36) U/L ALT (7-56) U/L Alkaline Phosphatase (38-126) U/L Troponin I ng/mL NT-Pro-B Natriuret Pep (0-450) pg/mL Total Protein (5.8-8.3) g/dL Albumin (3.0-4.8) g/dL Globulin gm/dL Albumin/Globulin Ratio (1.1-1.8) Lipase (23-300) U/L Venous Blood Potassium (3.6-5.2) mmol/L Urine Color (YELLOW) Urine Appearance (CLEAR) Urine pH (4.7-8.0) Ur Specific [place] (1.005-1.035) Urine Protein (<30 mg/dL) mg/dL Urine Glucose (UA) (NEGATIVE) mg/dL Urine Ketones (NEGATIVE) mg/dL Urine Blood (NEGATIVE) Urine Nitrate (NEGATIVE) Urine Bilirubin (NEGATIVE) Urine Urobilinogen (<1 E.U./dL) E.U./dL Ur Leukocyte Esterase (NEGATIVE) Karen/uL Urine RBC (0-2) /hpf Urine WBC (0-6) /hpf Ur Epithelial Cells (0-5) /hpf Urine Bacteria (NEG) Influenza Typ A,B (EIA) Negative for flu a/b (NEGATIVE) 01/01/18 01/01/18 Range/Units 14:34 14:27 WBC 5.5 (4.5-11.0) 10^3/ul RBC 5.53 (3.5-6.1) 10^6/uL Hgb 13.7 (12.0-16.0) g/dL Hct 46.1 (36.0-48.0) % MCV 83.4 (80.0-105.0) fl MCH 24.8 L (25.0-35.0) pg MCHC 29.7 L (31.0-37.0) g/dl RDW 21.5 H (11.5-14.5) % Plt Count 290 (120.0-450.0) 10^3/uL MPV 9.2 (7.0-11.0) fl Gran % 62.6 (50.0-68.0) % Lymph % (Auto) 13.6 L (22.0-35.0) % [place] % (Auto) 22.7 H (1.0-6.0) % Eos % (Auto) 0.9 L (1.5-5.0) % Baso % (Auto) 0.2 (0.0-3.0) % Gran # 3.45 (1.4-6.5) Lymph # (Auto) 0.8 L (1.2-3.4) [place] # (Auto) 1.3 H (0.1-0.6) Eos # (Auto) 0.1 (0.0-0.7) Baso # (Auto) 0.01 (0.0-2.0) K/mm3 Neutrophils % (Manual) 70 (50.0-70.0) % Lymphocytes % (Manual) 20 L (22.0-35.0) % Monocytes % (Manual) 10 H (1.0-6.0) % Platelet Evaluation Normal (NORMAL) Anisocytosis (manual) 1+ Microcytosis (manual) 1+ PT (9.4-12.5) SECONDS INR APTT (25.1-36.5) Seconds pCO2 (35-45) mm/Hg pO2 50 (30-55) mm/Hg HCO3 (21-28) mmol/L ABG pH (7.35-7.45) ABG Total CO2 (22-28) mmol.L ABG O2 Saturation (95-98) % ABG O2 Content (15-23) ML/dl ABG Base Excess (-2.0-3.0) mmol/L ABG Hemoglobin (11.7-17.4) g/dL ABG Carboxyhemoglobin (0.5-1.5) % POC ABG HHb (Measured) (0-5) % ABG Methemoglobin (0.0-3.0) % ABG O2 Capacity (16-24) mL/dl VBG pH 7.30 L (7.32-7.43) VBG pCO2 71.0 H* (40-60) VBG HCO3 34.9 H (21-28) mmol/l VBG Total CO2 37.1 H (22-28) mmol.L VBG O2 Sat (Calc) 83.8 H (40-65) % VBG Base Excess 6.0 H (0.0-2.0) mmol/L VBG Potassium 7.7 H* (3.6-5.2) mmol/L Hgb O2 Saturation (95.0-98.0) % Sodium 128.0 L (132-148) mmol/L Chloride 97.0 L (98-107) mmol/L Glucose 107 H (65-105) mg/dl Lactate 1.2 (0.7-2.1) mmol/L FiO2 21.0 % Potassium (3.6-5.0) mmol/L Carbon Dioxide (21-33) mmol/L Anion Gap (10-20) BUN (7-21) mg/dL Creatinine (0.7-1.2) mg/dl Est GFR ( Amer) Est GFR (Non-Af Amer) Random Glucose (70-110) mg/dL Calcium (8.4-10.5) mg/dL Phosphorus (2.5-4.5) mg/dL Magnesium (1.7-2.2) mg/dL Total Bilirubin (0.2-1.3) mg/dL AST (14-36) U/L ALT (7-56) U/L Alkaline Phosphatase (38-126) U/L Troponin I ng/mL NT-Pro-B Natriuret Pep (0-450) pg/mL Total Protein (5.8-8.3) g/dL Albumin (3.0-4.8) g/dL Globulin gm/dL Albumin/Globulin Ratio (1.1-1.8) Lipase (23-300) U/L Venous Blood Potassium 7.7 H* (3.6-5.2) mmol/L Urine Color (YELLOW) Urine Appearance (CLEAR) Urine pH (4.7-8.0) Ur Specific [place] (1.005-1.035) Urine Protein (<30 mg/dL) mg/dL Urine Glucose (UA) (NEGATIVE) mg/dL Urine Ketones (NEGATIVE) mg/dL Urine Blood (NEGATIVE) Urine Nitrate (NEGATIVE) Urine Bilirubin (NEGATIVE) Urine Urobilinogen (<1 E.U./dL) E.U./dL Ur Leukocyte Esterase (NEGATIVE) Karen/uL Urine RBC (0-2) /hpf Urine WBC (0-6) /hpf Ur Epithelial Cells (0-5) /hpf Urine Bacteria (NEG) Influenza Typ A,B (EIA) (NEGATIVE) Laboratory Results - last 24 hr 01/01/18 01/01/18 01/01/18 14:27 14:34 14:34 WBC 5.5 RBC 5.53 Hgb 13.7 Hct 46.1 MCV 83.4 MCH 24.8 L MCHC 29.7 L RDW 21.5 H Plt Count 290 MPV 9.2 Gran % 62.6 Lymph % (Auto) 13.6 L [place] % (Auto) 22.7 H Eos % (Auto) 0.9 L Baso % (Auto) 0.2 Gran # 3.45 Lymph # (Auto) 0.8 L [place] # (Auto) 1.3 H Eos # (Auto) 0.1 Baso # (Auto) 0.01 Neutrophils % (Manual) 70 Lymphocytes % (Manual) 20 L Monocytes % (Manual) 10 H Platelet Evaluation Normal Anisocytosis (manual) 1+ Microcytosis (manual) 1+ PT 15.6 H INR 1.36 APTT 30.6 pCO2 pO2 50 HCO3 ABG pH ABG Total CO2 ABG O2 Saturation ABG O2 Content ABG Base Excess ABG Hemoglobin ABG Carboxyhemoglobin POC ABG HHb (Measured) ABG Methemoglobin ABG O2 Capacity VBG pH 7.30 L VBG pCO2 71.0 H* VBG HCO3 34.9 H VBG Total CO2 37.1 H VBG O2 Sat (Calc) 83.8 H VBG Base Excess 6.0 H VBG Potassium 7.7 H* Hgb O2 Saturation Sodium 128.0 L Chloride 97.0 L Glucose 107 H Lactate 1.2 FiO2 21.0 Potassium Carbon Dioxide Anion Gap BUN Creatinine Est GFR ( Amer) Est GFR (Non-Af Amer) Random Glucose Calcium Phosphorus Magnesium Total Bilirubin AST ALT Alkaline Phosphatase Troponin I NT-Pro-B Natriuret Pep Total Protein Albumin Globulin Albumin/Globulin Ratio Lipase Venous Blood Potassium 7.7 H* Urine Color Urine Appearance Urine pH Ur Specific [place] Urine Protein Urine Glucose (UA) Urine Ketones Urine Blood Urine Nitrate Urine Bilirubin Urine Urobilinogen Ur Leukocyte Esterase Urine RBC Urine WBC Ur Epithelial Cells Urine Bacteria Influenza Typ A,B (EIA) 01/01/18 01/01/18 01/01/18 15:39 16:22 16:42 WBC RBC Hgb Hct MCV MCH MCHC RDW Plt Count MPV Gran % Lymph % (Auto) [place] % (Auto) Eos % (Auto) Baso % (Auto) Gran # Lymph # (Auto) [place] # (Auto) Eos # (Auto) Baso # (Auto) Neutrophils % (Manual) Lymphocytes % (Manual) Monocytes % (Manual) Platelet Evaluation Anisocytosis (manual) Microcytosis (manual) PT INR APTT pCO2 74 H* pO2 83.0 HCO3 33.2 H ABG pH 7.26 L ABG Total CO2 35.5 H ABG O2 Saturation 96.9 ABG O2 Content 18.1 ABG Base Excess 3.7 H ABG Hemoglobin 13.7 ABG Carboxyhemoglobin 2.7 H POC ABG HHb (Measured) 3.0 ABG Methemoglobin 0.5 ABG O2 Capacity 18.7 VBG pH VBG pCO2 VBG HCO3 VBG Total CO2 VBG O2 Sat (Calc) VBG Base Excess VBG Potassium Hgb O2 Saturation 93.8 L Sodium Chloride Glucose Lactate FiO2 50.0 Potassium Carbon Dioxide Anion Gap BUN Creatinine Est GFR ( Amer) Est GFR (Non-Af Amer) Random Glucose Calcium Phosphorus Magnesium Total Bilirubin AST ALT Alkaline Phosphatase Troponin I NT-Pro-B Natriuret Pep Total Protein Albumin Globulin Albumin/Globulin Ratio Lipase Venous Blood Potassium Urine Color Yellow Urine Appearance Clear Urine pH 6.0 Ur Specific [place] 1.020 Urine Protein Trace H Urine Glucose (UA) Negative Urine Ketones Negative Urine Blood Negative Urine Nitrate Negative Urine Bilirubin Negative Urine Urobilinogen 0.2 Ur Leukocyte Esterase Negative Urine RBC Negative Urine WBC 1 - 3 Ur Epithelial Cells 4 - 5 Urine Bacteria Few Influenza Typ A,B (EIA) Negative for flu a/b 01/01/18 01/02/18 01/02/18 17:45 05:50 05:50 WBC 5.0 RBC 5.62 Hgb 13.8 Hct 46.8 MCV 83.3 MCH 24.6 L MCHC 29.5 L RDW 21.4 H Plt Count 253 MPV 8.7 Gran % 89.0 H Lymph % (Auto) 9.6 L [place] % (Auto) 1.2 Eos % (Auto) 0.0 L Baso % (Auto) 0.2 Gran # 4.43 Lymph # (Auto) 0.5 L [place] # (Auto) 0.1 Eos # (Auto) 0.0 Baso # (Auto) 0.01 Neutrophils % (Manual) Lymphocytes % (Manual) Monocytes % (Manual) Platelet Evaluation Anisocytosis (manual) Microcytosis (manual) PT 17.8 H INR 1.53 APTT pCO2 pO2 HCO3 ABG pH ABG Total CO2 ABG O2 Saturation ABG O2 Content ABG Base Excess ABG Hemoglobin ABG Carboxyhemoglobin POC ABG HHb (Measured) ABG Methemoglobin ABG O2 Capacity VBG pH VBG pCO2 VBG HCO3 VBG Total CO2 VBG O2 Sat (Calc) VBG Base Excess VBG Potassium Hgb O2 Saturation Sodium 134 Chloride 94 L Glucose Lactate FiO2 Potassium 4.2 Carbon Dioxide 33 Anion Gap 10 BUN 31 H Creatinine 1.3 H Est GFR ( Amer) 48 Est GFR (Non-Af Amer) 40 Random Glucose 99 Calcium 8.5 Phosphorus Magnesium 2.3 H Total Bilirubin 0.4 AST 15 ALT 30 Alkaline Phosphatase 66 Troponin I 0.01 D NT-Pro-B Natriuret Pep 45173 H Total Protein 6.1 Albumin 3.2 Globulin 2.9 Albumin/Globulin Ratio 1.1 Lipase 40 Venous Blood Potassium Urine Color Urine Appearance Urine pH Ur Specific [place] Urine Protein Urine Glucose (UA) Urine Ketones Urine Blood Urine Nitrate Urine Bilirubin Urine Urobilinogen Ur Leukocyte Esterase Urine RBC Urine WBC Ur Epithelial Cells Urine Bacteria Influenza Typ A,B (EIA) 01/02/18 01/02/18 05:50 07:03 WBC RBC Hgb Hct MCV MCH MCHC RDW Plt Count MPV Gran % Lymph % (Auto) [place] % (Auto) Eos % (Auto) Baso % (Auto) Gran # Lymph # (Auto) [place] # (Auto) Eos # (Auto) Baso # (Auto) Neutrophils % (Manual) Lymphocytes % (Manual) Monocytes % (Manual) Platelet Evaluation Anisocytosis (manual) Microcytosis (manual) PT INR APTT pCO2 72 H* pO2 90.0 HCO3 34.6 H ABG pH 7.29 L ABG Total CO2 36.8 H ABG O2 Saturation 97.7 ABG O2 Content 18.5 ABG Base Excess 5.5 H ABG Hemoglobin 13.8 ABG Carboxyhemoglobin 2.1 H POC ABG HHb (Measured) 2.2 ABG Methemoglobin 0.9 ABG O2 Capacity 18.9 VBG pH VBG pCO2 VBG HCO3 VBG Total CO2 VBG O2 Sat (Calc) VBG Base Excess VBG Potassium Hgb O2 Saturation 94.8 L Sodium 134 Chloride 94 L Glucose Lactate FiO2 40.0 Potassium 4.4 Carbon Dioxide 33 Anion Gap 12 BUN 30 H Creatinine 1.1 Est GFR ( Amer) 59 Est GFR (Non-Af Amer) 49 Random Glucose 110 Calcium 8.6 Phosphorus 5.3 H Magnesium 2.1 Total Bilirubin 0.3 AST 15 ALT 31 Alkaline Phosphatase 60 Troponin I NT-Pro-B Natriuret Pep Total Protein 6.0 Albumin 3.0 Globulin 2.9 Albumin/Globulin Ratio 1.0 L Lipase Venous Blood Potassium Urine Color Urine Appearance Urine pH Ur Specific [place] Urine Protein Urine Glucose (UA) Urine Ketones Urine Blood Urine Nitrate Urine Bilirubin Urine Urobilinogen Ur Leukocyte Esterase Urine RBC Urine WBC Ur Epithelial Cells Urine Bacteria Influenza Typ A,B (EIA) EKG/Cardiology Studies: Cardiology / EKG Studies 01/01/18 14:34 EKG [ELECTROCARDIOGRAM] Stat Comment: Reason For Exam: chest pain Critical Care Progress Note - Nutrition Nutrition: Nutrition Category Date Time Status Heart Healthy Diet [DIET] Diets 01/02/18 Breakfast Active Assessment/Plan - Assessment and Plan (Free Text) Plan: Patient seen and examined with resident, agree with note with following additions/exceptions: Patient is 72yo female with PMhx of HTN, GERD, 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 ABG with mild resp acidosis, chronic CT head noted Ophtho consulted Clinically improved since admission, sitting in chair watching TV CHF exacerbation COPD exacerbation Chornic resp acidosis SOB Hx DVT/PE Recommend; - cont with supp o2 as needed, goal sat 90%, BIPAP at night, duonebs, Solumedrol 40mg IV BID - Brovana, Pulmicort - Panculture, UCx, BCx, check Procal - BP control - Lasix IV diuresis - Resume Revatio - Coreg 6.25mg BID - Cardiology consult - hold Coumadin, confirm with ophtho if OK to restart A/C - Ophtho consult - GI ppx - DVT ppx, SCDs - stable, transfer to telemetry
--- NOTE | 2018-01-02 08:24 | HP ---
The patient was seen and examined on the bedside on 01/01/2018. CHIEF COMPLAINT: Weakness, alerted mental status. HISTORY OF PRESENT ILLNESS: Mr. Katty Bates, 72-year-old female, well-known to me with past medical history of arthritis, COPD, emphysema. Came to the Emergency Department with her for abdominal pain. reports that the patient is experiencing abdominal pain and is also worried about the left breast lump. She is also experiencing back and shoulder pain and for me, the patient looks likely a bit confused and little bit altered mental status. Sometime, the patient is like mumbling and doing ununderstandable conversation. Discussion done with ER, admitted the patient in the unit. Pulmonary consult called. PAST MEDICAL HISTORY: Congestive heart failure, hypertension, COPD, history of pneumonia, obstructive sleep apnea syndrome, using BiPAP at home, history of TIA, cataract, history of gastroesophageal reflux disease, urinary incontinence. FAMILY HISTORY: Father and mother, noncontributory. HABITS: Never smoked. No drugs. No ethanol. ALLERGIES: THE PATIENT IS NOT ALLERGIC WITH ANY MEDICATIONS. HOME MEDICATIONS: Fosamax, Coreg, Advair, Revatio. REVIEW OF SYSTEMS: The patient was seen and examined on the bedside, is not able to give too much information, but like mumbling. According to the patient, abdominal pain, back pain. No fever. No chills. No headache. No dizziness. No chest pain. PHYSICAL EXAMINATION: VITAL SIGNS: Temperature 98.4, pulse 64, respiratory rate 18, blood pressure 134/47. HEENT: Head normocephalic, atraumatic. Eyes PERRLA. Extraocular muscles intact. Conjunctivae clear. Nose patent. Mucous membrane moist. NECK: Supple. No carotid bruit. No JVD or thyromegaly. CHEST: Bilaterally symmetrical. HEART: S1 and S2 positive. LUNGS: Clear to auscultation. ABDOMEN: Soft. Bowel sounds positive. No organomegaly. EXTREMITIES: No edema. No cyanosis. NEUROLOGICAL: The patient is awake, alert, but getting episodes of confusion. LABORATORY DATA: White blood cell is 5.5, hemoglobin 13.7, hematocrit 46.1, platelets 290. Sodium 134, potassium 4.4, BUN 31, creatinine 1.3, magnesium 2.3, BNP 13,800. ASSESSMENT AND PLAN: Ms. Katty Bates, 72-year-old lady with hyperchloremia, renal insufficiency, hypomagnesemia, exacerbation of congestive heart failure, BNP is very high, proteinuria. Influenza A is negative. Did CAT scan of the head, reviewed by me. History of chronic obstructive pulmonary disease, asthma, obstructive sleep apnea syndrome, using bilevel positive airway pressure at home, history of cataract surgery, hypertension, history of deep venous thrombosis, pulmonary embolism, transient ischemic attack, blind, cataract surgery, history of smoking, gastroesophageal reflux disease, dyspepsia. Is on Coumadin. Using bilevel positive airway pressure. Vision loss of right eye. History of carbon dioxide narcosis, respiratory acidosis, hypercapnia. Put the patient in the unit. Bilevel positive airway pressure started. Repeat ABG. Solu-Medrol started. Brovana given. Pancultures done. Blood pressure control. Pulmonary consult called. Cardiology consult called. Holding Coumadin. Ophthalmology consult called. Gastrointestinal, deep venous thrombosis prophylaxis. Repeat labs. We will follow up. Melvina Kohli MD
[2018-01-02 08:29] LABS: ARTERIAL BLOOD GAS HCO3 34.6 mmol/L (21-28); ARTERIAL BLOOD GAS HEMOGLOBIN 13.8 g/dL (11.7-17.4); ARTERIAL BLOOD GAS O2 CAPACITY 18.9 mL/dl (16-24); ARTERIAL BLOOD GAS O2 CONTENT 18.5 ML/dl (15-23); ARTERIAL BLOOD GAS O2 SAT 97.7 % (95-98); ARTERIAL BLOOD GAS PH 7.29 (7.35-7.45); ARTERIAL BLOOD GAS TCO2 36.8 mmol.L (22-28)
[2018-01-02 08:31] LABS: ARTERIAL BLOOD GAS PCO2 72 mm/Hg (35-45)
--- NOTE | 2018-01-02 09:16 | CARD ---
APPROVED REPORT Date of service: 01/01/2018 EKG Measurement Heart [id number] <Conclusion> Normal sinus rhythm Rightward axis STTW changes
[2018-01-02] MEDS: MethylPREDNISolone 40 mg Vial IVP SCH ×2 (11:05→17:20)
[2018-01-02] MEDS: Sildenafil 20 MG TAB PO SCH ×2 (13:36→17:20)
[2018-01-03 06:28] LABS: GRAN # 2.54 (1.4-6.5); GRAN % 80.2 % (50.0-68.0); LYMPH # 0.4 (1.2-3.4); LYMPH % 13.2 % (22.0-35.0); MEAN CELL VOLUME 82.3 fl (80.0-105.0); MEAN CORPUSCULAR HEMOGLOBIN 24.3 pg (25.0-35.0); MEAN CORPUSCULAR HGB CONC 29.5 g/dl (31.0-37.0); MEAN PLATELET VOLUME 9.1 fl (7.0-11.0); MONO # 0.2 (0.1-0.6); MONO % 6.6 % (1.0-6.0); RBC 5.77 10^6/uL (3.5-6.1); RED CELL DISTRIBUTION WIDTH 21.2 % (11.5-14.5); WHITE BLOOD COUNT 3.2 10^3/ul (4.5-11.0)
[2018-01-03 06:59] LABS: ALB/GLOB RATIO 1.1 (1.1-1.8); ALBUMIN 3.2 g/dL (3.0-4.8); ALT/SGPT 30 U/L (7-56); AST/SGOT 17 U/L (14-36); BLOOD UREA NITROGEN 30 mg/dL (7-21); CALCIUM 8.5 mg/dL (8.4-10.5); GFR NON-AFRICAN AMERICAN 54
--- NOTE | 2018-01-03 07:06 | PN ---
DATE: 01/02/2018 SUBJECTIVE: The patient is a 72-year-old female. Patient was seen and examined at the bedside on 01/02/2018. Looking comfortable. In the unit, awake and alert, having 3 L nasal cannula oxygenation. Doing well with that. No complaints. No fever. No chills. No shortness of breath. No abdominal pain. No nausea, vomiting, or diarrhea. No hematuria or hematochezia. No headache. No dizziness. PHYSICAL EXAMINATION: VITAL SIGNS: Temperature 99.1, pulse 64, respiratory rate is 20, blood pressure 124/61, pulse oximetry 95%. HEENT: Head: Normocephalic, atraumatic. Eyes: PERRLA. Extraocular muscles intact. Conjunctivae clear. Nose patent. NECK: Supple. No carotid bruit. No JVD or thyromegaly. CHEST: Bilaterally symmetrical. HEART: S1 and S2 positive. LUNGS: Clear to auscultation. ABDOMEN: Soft. Bowel sounds positive. No organomegaly. EXTREMITIES: No edema. No cyanosis. NEUROLOGICAL: The patient is awake and alert. Moving all 4 extremities. No focal deficit. MEDICATIONS: Brovana, Pulmicort, Lasix, Solu-Medrol. LABORATORY DATA: White blood cells 5, hemoglobin 13.8, hematocrit 46.8, platelets 253. INR is 1.53. Sodium 134, potassium 9.4, BUN 30, creatinine 1.1, calcium 8.6. ASSESSMENT AND PLAN: Ms. Katty Bates is a 72-year-old lady with history of hypertension, gastroesophageal reflux disease, deep venous thrombosis, pulmonary embolism, on Coumadin, transient ischemic attack, congestive heart failure, obstructive sleep apnea syndrome. She is on bilevel positive airway pressure, home oxygenation, came with congestive heart failure exacerbation, currently afebrile. Blood pressure is controlled. Getting oxygen 92% with 2 liter nasal cannula. Orthopedic consult called. improved since admission, was resting in the chair. Congestive heart failure exacerbation, chronic obstructive pulmonary disease exacerbation, chronic respiratory acidosis, shortness of breath. Continue supplemental oxygen, Brovana, Pulmicort. Pancultures. Chest x-ray done. Blood pressure controlled. Lasix intravenously. Resume Revatio. Hold Coumadin. Patient is seen by ICU team. Getting treatment. Repeat labs. We will follow up. Melvina Kohli MD [facility] # [id number] [email or web address]
[2018-01-03] MEDS: Arformoterol 15 mcg/2 ml Inh Sol IH SCH ×2 (07:49→20:15)
[2018-01-03] MEDS: Budesonide 0.25 mg/2 ml Inhal Susp UD IH SCH ×2 (07:49→20:15)
[2018-01-03] MEDS: Sildenafil 20 MG TAB PO SCH ×3 (10:16→17:35)
[2018-01-03] MEDS: MethylPREDNISolone 40 mg Vial IVP SCH ×2 (10:16→17:35)
--- NOTE | 2018-01-04 02:16 | PN ---
DATE: 01/03/2018 The patient is a 72-year-old female. SUBJECTIVE: The patient was seen and examined at the bedside, looking comfortable. No nausea, vomiting, or diarrhea. No hematuria or hematochezia. No headache. No dizziness. No chest pain. No palpitations. Shortness of breath is getting better. Cough is getting better. PHYSICAL EXAMINATION: VITAL SIGNS: Temperature 98.6, pulse 78, blood pressure 145/62, respiratory rate 20. HEENT: Head is normocephalic and atraumatic. Eyes; PERRLA. Extraocular muscles are intact. Conjunctivae are clear. Nose is patent. Mucous membranes are moist. NECK: Supple. No carotid bruit. No JVD or thyromegaly. CHEST: Bilaterally symmetrical. HEART: S1 and S2 positive. LUNGS: Clear to auscultation. ABDOMEN: Soft. Bowel sounds are present. No organomegaly. EXTREMITIES: No edema. No cyanosis. NEUROLOGIC: The patient is awake and alert. Moving all 4 extremities. No focal deficits. MEDICATIONS: Brovana, Coreg, Lasix, Pulmicort, Revatio, Solu-Medrol. LABORATORY DATA: White blood cell is 3.2, hemoglobin 14, hematocrit 47.5, and platelets 229. Sodium 137, potassium 4.2, BUN 30, creatinine 1, glucose 132. Phosphorus 5.3. BNP 13,800. ASSESSMENT AND PLAN: Mr. Katty Bates is a 72-year-old female with leukopenia, hyperchloremia, increased BUN, hyperglycemia, hyperphosphatemia, congestive heart failure, proteinuria, was admitted in ICU because of carbon dioxide narcosis, obesity, obstructive sleep apnea syndrome. CAT scan of the head was done. 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 Continue BiPAP, Brovana, milligan cultures, IV Lasix. Pulmonary consult. GI and DVT prophylaxis. Repeat labs. We will follow up. Melvina Kohli MD [facility] # [id number] ALINA
[2018-01-04] MEDS: Budesonide 0.25 mg/2 ml Inhal Susp UD IH SCH ×2 (07:50→20:45)
[2018-01-04] MEDS: Arformoterol 15 mcg/2 ml Inh Sol IH SCH ×2 (07:50→20:45)
[2018-01-04 08:32] LABS: BASO # 0.01 K/mm3 (0.0-2.0); BASO % 0.2 % (0.0-3.0); GRAN # 3.12 (1.4-6.5); GRAN % 73.1 % (50.0-68.0); HEMOGLOBIN 14.1 g/dL (12.0-16.0); LYMPH # 0.6 (1.2-3.4); LYMPH % 13.6 % (22.0-35.0); MEAN CELL VOLUME 82.3 fl (80.0-105.0); MEAN CORPUSCULAR HEMOGLOBIN 24.4 pg (25.0-35.0); MEAN CORPUSCULAR HGB CONC 29.7 g/dl (31.0-37.0); MEAN PLATELET VOLUME 8.8 fl (7.0-11.0); MONO # 0.6 (0.1-0.6); MONO % 13.1 % (1.0-6.0); RBC 5.77 10^6/uL (3.5-6.1); RED CELL DISTRIBUTION WIDTH 21.9 % (11.5-14.5); WHITE BLOOD COUNT 4.3 10^3/ul (4.5-11.0)
[2018-01-04 08:49] LABS: TOTAL IRON BINDING CAPACITY 400 ug/dL (265-497)
[2018-01-04 08:53] LABS: LDL CHOLESTEROL 121 mg/dL (0-129)
[2018-01-04 09:01] LABS: ALB/GLOB RATIO 1.1 (1.1-1.8); ALBUMIN 3.3 g/dL (3.0-4.8); ALT/SGPT 25 U/L (7-56); AST/SGOT 21 U/L (14-36); BLOOD UREA NITROGEN 27 mg/dL (7-21); CALCIUM 8.7 mg/dL (8.4-10.5); GFR NON-AFRICAN AMERICAN > 60; HDL CHOLESTEROL 44 mg/dL (29-60)
[2018-01-04 09:02] LABS: % IRON SATURATION 9 % (20-55); IRON 34 ug/dL (45-180)
[2018-01-04] MEDS: Sildenafil 20 MG TAB PO SCH ×3 (09:41→17:59)
[2018-01-04] MEDS: MethylPREDNISolone 40 mg Vial IVP SCH ×2 (09:41→17:59)
[2018-01-04 14:27] LABS: FOLATE 11.8 ng/mL
--- NOTE | 2018-01-04 15:55 | CON ---
DATE: 01/04/2018 NEUROLOGY CONSULT CHIEF COMPLAINT: CAT scan showing acute hemorrhage in the right globe. HISTORY OF PRESENT ILLNESS: This is a 72-year-old woman with history of hypertension, GERD, DVT/PT in 04/2014, on Coumadin, TIA in 2016. She uses BiPAP and use home oxygen at home, came with altered mental status, difficulty breathing for the past 3 days. She is alert and oriented to person and place at that particular moment, was placed on BiPAP and is doing better. She has some CHF exacerbation at that particular time. Currently, she is following commands and moving all extremities. She has right eye infection after the cataract surgery and blind in the right eye for the past one year. Her right eye pupil is dilated. Her CAT scan of the head showed right globe hemorrhage, but no intracranial hemorrhage. Ophthalmology has been consulted and she is mildly deconditioned. PAST MEDICAL HISTORY: As above. SOCIAL HISTORY: No illicit drug use, smoking, or EtOH abuse. ALLERGIES: NO KNOWN DRUG ALLERGIES. MEDICATION: Reviewed by the nurse per reconciliation sheet. FAMILY HISTORY: Noncontributory. REVIEW OF SYSTEMS: A 14-point review of system is negative except as per the HPI. LABORATORY DATA: Sodium is 136, potassium 3.8, chloride 92, carbon dioxide of 40. BUN of 27, creatinine 0.8. Random glucose of 126. She has some iron-deficiency anemia as well. PHYSICAL EXAMINATION VITAL SIGNS: Temperature 98.4, pulse rate 61, blood pressure 147/69, respiratory rate of 20, oxygen saturation 98% by room air. GENERAL: The patient is sitting up in bed, in no acute distress. HEENT: Atraumatic and normocephalic. PERRLA. Extraocular muscles intact except for pupillary defect in the right eye, no response to light which is chronic. NECK: Supple. No JVD. No adenopathy. LUNGS: Decreased breath sounds bilaterally. ABDOMEN: Soft, nontender, and nondistended. Bowel sounds present. EXTREMITIES: No clubbing, no cyanosis. Peripheral pulses 2+ felt bilaterally. NEUROLOGIC: The patient is alert and oriented to person, place, and year. Recall after 5 minutes is 0 out of 3. Poor attention span, slow thought process. Cranial nerves II through XII intact. Motor exam: Moves all extremities equally. Toes are downgoing bilaterally. Sensory exam: Decreased light touch and pinprick up to the calves bilaterally. Decrease vibration of the toes. DTRs are 2+ throughout, 1 at both knees and ankles. Coordination: [id number] intact. No dysmetria noted. Gait is deferred for now. ASSESSMENT AND PLAN: This is a 72-year-old woman with history of congestive heart failure, deep venous thrombosis/pulmonary embolism, transient ischemic attack, on Coumadin, gastroesophageal reflux disease, hypertension who presented with inability to use her BiPAP for the past few days and in respiratory distress. She is currently being managed. Her CAT scan of the head showed right globe hemorrhage. Currently, she denies any headaches or any dizziness at this time. No focal weakness or decondition. Currently, she is being managed on BiPAP for underlying congestive heart failure and electrolytes have been monitored. At this time, we will defer the right eye globe hemorrhage to Ophthalmology's recommendations. We will recommend to continue with her Coumadin for now since there is no acute intracranial hemorrhage. We will recommend to continue Revatio for underlying pulmonary hypertension and Solu-Medrol for her chronic obstructive pulmonary disease and congestive heart failure exacerbation as well as her Lasix. At this time, monitor her electrolytes and get MRI of the brain to see if any further intracranial abnormalities, otherwise to follow up with Ophthalmology. Tavon Sanderson MD
--- NOTE | 2018-01-04 23:47 | PN ---
DATE: 01/04/2018 SUBJECTIVE: The patient is 72 years old female. The patient was seen and examined at the bedside on 01/04/2018, complaining about her home BiPAP machine is making noise and no fever, no chills. No headache. No dizziness. No chest pain. No palpitation. Mental status is back to her normal. No hematuria or hematochezia. PHYSICAL EXAMINATION: VITAL SIGNS: Temperature 98.4, pulse 61, blood pressure 114/69, respiratory rate 20, oxygen saturation 98% on room air. HEENT: Head: Normocephalic and atraumatic. Eyes: PERRLA. Extraocular muscles are intact. Conjunctivae are clear. Nose is patent. Mucous membranes are moist. NECK: Supple. No carotid bruit. No JVD or thyromegaly. CHEST: Bilaterally symmetrical. HEART: S1 and S2 positive. LUNGS: Clear to auscultation. ABDOMEN: Soft. Bowel sounds are present. No organomegaly. EXTREMITIES: No edema. No cyanosis. NEUROLOGIC: The patient is awake and alert. Moving all 4 extremities. No focal deficits. LABORATORY DATA: Sodium 136, potassium 3.8. BUN 27, creatinine 0.8. Glucose 126. ASSESSMENT AND PLAN: Ms. Katty Bates is 72 years old female with history of congestive heart failure, deep vein thrombosis, pulmonary emboli, is on Coumadin, transient ischemic attack, gastroesophageal reflux disease, hypertension, using BiPAP at home, respiratory distress. CAT scan of the head showed right globe hemorrhage. Currently, she denies any headache or any dizziness at this time. History of chronic obstructive pulmonary disease and asthma. At this time, we will defer the right eye globe hemorrhage to material loader's recommendation as per neurologist. Continue with her Coumadin for now since there is no acute intracranial hemorrhage. Continue Revatio for pulmonary hypertension. Solu-Medrol for her chronic obstructive pulmonary disease. Continue Lasix. Appreciated neurologist's input. Gastrointestinal and deep venous thrombosis prophylaxes. Repeat labs. We will follow up. Melvina Kohli MD
[2018-01-05 07:19] LABS: HEMOGLOBIN 14.1 g/dL (12.0-16.0); MEAN CELL VOLUME 83.5 fl (80.0-105.0); MEAN CORPUSCULAR HEMOGLOBIN 24.4 pg (25.0-35.0); MEAN CORPUSCULAR HGB CONC 29.3 g/dl (31.0-37.0); RBC 5.77 10^6/uL (3.5-6.1); WHITE BLOOD COUNT 5.1 10^3/ul (4.5-11.0)
[2018-01-05 07:37] LABS: BLOOD UREA NITROGEN 26 mg/dL (7-21); CALCIUM 8.5 mg/dL (8.4-10.5); GFR NON-AFRICAN AMERICAN > 60
[2018-01-05] MEDS: Arformoterol 15 mcg/2 ml Inh Sol IH SCH ×2 (08:31→20:55)
[2018-01-05] MEDS: Budesonide 0.25 mg/2 ml Inhal Susp UD IH SCH ×2 (08:31→20:55)
[2018-01-05] MEDS: MethylPREDNISolone 40 mg Vial IVP SCH (10:20)
[2018-01-05] MEDS: Sildenafil 20 MG TAB PO SCH ×3 (10:20→17:37)
[2018-01-05] MEDS ORDERED: MethylPREDNISolone 40 mg Vial IVP SCH (13:06)
--- NOTE | 2018-01-05 22:41 | PN ---
DATE: 01/05/2018 SUBJECTIVE: The patient is a 72-year-old female. The patient was seen and examined at the bedside on 01/05/2018, looking comfortable. No nausea, vomiting, or diarrhea. No hematuria or hematochezia. No swelling of the legs. No chest pain. No palpitation. No fever. No chills. PHYSICAL EXAMINATION: VITAL SIGNS: Temperature 98.6, pulse 93, blood pressure 139/54, respiratory rate 20. HEENT: Head: Normocephalic and atraumatic. Eyes: PERRLA. Extraocular muscles are intact. Conjunctivae are clear. Nose is patent. NECK: Supple. No carotid bruit. No JVD or thyromegaly. CHEST: Bilaterally symmetrical. HEART: S1 and S2 positive. LUNGS: Clear to auscultation. ABDOMEN: Soft. Bowel sounds are present. No organomegaly. EXTREMITIES: No edema. No cyanosis. NEUROLOGIC: The patient is awake and alert. Obeys simple orders. MEDICATIONS: Brovana, Coreg, Coumadin, Diamox, Pulmicort, Revatio, Solu-Medrol. LABORATORY DATA: White blood cells 5.1, hemoglobin 14.1, hematocrit 48.2, platelets 225. Sodium 138, potassium 3.8. BUN 26, creatinine 0.5. Glucose 126. ASSESSMENT AND PLAN: Ms. Katty Bates is a 72-year-old female with leukopenia, anemia, hypochloremia, renal insufficiency, hyperglycemia, uncontrolled diabetes mellitus, iron deficiency, history of congestive heart failure, deep vein thrombosis, pulmonary emboli, is on Coumadin, transient ischemic attack, gastroesophageal reflux disease, hypertension, using BiPAP at home, respiratory distress. Neurologist is on the case. Gastrointestinal and deep vein thrombosis prophylaxes. We will call Ophthalmology consult. Repeat labs. We will follow up. Melvina Kohli MD
--- NOTE | 2018-01-05 23:43 | CON ---
DATE: 01/05/2018 PULMONARY CONSULT REFERRING PHYSICIAN: Melvina Kohli MD. REASON FOR CONSULTATION: Admitted with respiratory failure, obesity hypoventilation syndrome, chronic lung disease, pulmonary hypertension. HISTORY OF PRESENT ILLNESS: This is a 72-year-old female, well known to me from previous admission and from the office, known to have a hypoventilation syndrome with probably sleep apnea syndrome, hypertension, history of for PE and DVT in the remote past, on anticoagulation, morbid obesity, who is supposed to be on noninvasive ventilation at night. Recently, went to [place], was vented, supplemented oxygen and she claims she did take her noninvasive ventilation with her and had been using every night, but when she came back, there was some issue with her noninvasive ventilation and when they took the machine away, she ended up becoming lethargic, sleepy, change in mental status. Came in to emergency room, found to have a CO2 narcosis, was placed on noninvasive ventilation with successful improving her condition. Also seen by Neurology. Presently, sitting up in a chair, feels okay. No headache, no rhinitis. No nausea. No vomiting, diarrhea, leg pain or leg swelling. PAST MEDICAL HISTORY: As per history of present illness. SOCIAL HISTORY: Former smoker. Stopped smoking a few years ago. FAMILY HISTORY: No significant cardiopulmonary disease reported. ALLERGIES: NONE KNOWN. MEDICATIONS: She is on Brovana inhaled twice a day, Coreg 6.25 mg twice a day, Coumadin 5 mg a day, Lasix 40 mg twice a day, Pulmicort inhaled twice day, Revatio is 20 mg three times a day, Solu-Medrol is 40 mg twice a day. REVIEW OF SYSTEMS: No headache, no rhinitis. Cough is better. Shortness of breath is better. No chest pain. No nausea. No vomiting. No diarrhea, leg pain or leg swelling. PHYSICAL EXAMINATION: GENERAL: In no acute distress. VITAL SIGNS: Temperature is 98, heart rate is 76, respiratory rate is 20, blood pressure 150/75, pulse ox 96% on room air. HEENT: Moist mucous membrane. Crowded airway. Mallampati score is 4. NECK: Supple. No JVD. LUNGS: Have a few scattered rhonchi. HEART: S1 and S2. ABDOMEN: Soft, nontender. No organomegaly. EXTREMITIES: No edema. NEUROLOGICAL: Awake, alert. Follows simple commands. LABORATORY DATA: Shows hemoglobin 14.1, hematocrit 48.2, WBC 5.1, platelet is 225. ABG on admission shows pH 7.29, pCO2 of 72, O2 was 90 that on nasal cannula. Sodium 138, potassium 2.8, chloride 91, bicarbonate 43, BUN 26, creatinine 0.8, glucose 126, calcium is 8.5. Microbiology: Nares MRSA has been negative. CAT scan of the head was nondiagnostic. IMPRESSION AND PLAN: Respiratory failure with carbon dioxide retention and narcosis, requiring noninvasive ventilation; history of pulmonary hypertension; history of pulmonary embolism and deep venous thrombosis in the past; history of cerebrovascular accident, gastroesophageal reflux disease, obesity, hypertension. Agree with the present management. I will decrease Solu-Medrol to 20 every 12 hours. Continue Revatio 20 mg three times a day. We will also discontinue Lasix and add Diamox. We will continue bilevel positive airway pressure while sleeping, inhaled bronchodilator, fall precaution, anticoagulation. Before discharge, need to make sure her home noninvasive ventilation is available. Thank you and we will follow with you. Danii Herrera MD
[2018-01-06 06:48] LABS: ALB/GLOB RATIO 1.2 (1.1-1.8); ALBUMIN 3.3 g/dL (3.0-4.8); ALT/SGPT 26 U/L (7-56); AST/SGOT 15 U/L (14-36); BLOOD UREA NITROGEN 24 mg/dL (7-21); CALCIUM 8.6 mg/dL (8.4-10.5); GFR NON-AFRICAN AMERICAN > 60
[2018-01-06 07:15] LABS: HEMOGLOBIN 14.2 g/dL (12.0-16.0); MEAN CORPUSCULAR HEMOGLOBIN 24.1 pg (25.0-35.0); MEAN CORPUSCULAR HGB CONC 28.4 g/dl (31.0-37.0); MEAN PLATELET VOLUME 8.2 fl (7.0-11.0); RBC 5.88 10^6/uL (3.5-6.1); RED CELL DISTRIBUTION WIDTH 22.4 % (11.5-14.5); WHITE BLOOD COUNT 4.8 10^3/ul (4.5-11.0)
[2018-01-06 08:52] VITALS: RESP 20
[2018-01-06] MEDS: Sildenafil 20 MG TAB PO SCH ×3 (09:32→18:05)
[2018-01-06] MEDS: Arformoterol 15 mcg/2 ml Inh Sol IH SCH ×2 (09:39→21:10)
[2018-01-06 19:07] LABS: INR 1.99
[2018-01-06] MEDS: Budesonide 0.25 mg/2 ml Inhal Susp UD IH SCH (21:10)
--- NOTE | 2018-01-06 23:22 | CON ---
DATE: 01/06/2018 HISTORY OF PRESENT ILLNESS: Ms. Bates is a 72-year-old female, admitted to the hospital with altered mental status and abdominal pain. She has a history of bilateral pulmonary embolism, history of DVT in the leg, on Coumadin. She had cataract surgery in both eyes last year. She had CAT scan of the head, which showed bleeding in the right globe. She is off Coumadin now. INR is subtherapeutic. She also has chronic hypoxia, Dr. Javier noel. Mental status has improved now. She is alert, oriented x3. Complaining of no vision in the right eye. PAST MEDICAL HISTORY: Pulmonary embolism; COPD; CHF; sleep apnea, on BiPAP at home; TIA; GE reflux. FAMILY HISTORY: Noncontributory. PERSONAL HISTORY: Ex-smoker. No history of alcohol abuse. ALLERGIES: NO KNOWN DRUG ALLERGIES. HOME MEDICATIONS: Coumadin, Advair, Coreg, Fosamax. REVIEW OF SYSTEMS: As per HPI. Rest of 12-point review of systems reviewed negative. PHYSICAL EXAMINATION: GENERAL: Comfortable in bed, in no acute distress. VITAL SIGNS: Temperature 98.7, heart rate 64 per minute, respiratory rate 15 per minute, blood pressure 130/70. HEENT: Atraumatic, normocephalic. No vision in the right eye. Extraocular muscles normal. Conjunctivae clear. NECK: No lymphadenopathy. CHEST: Air entry present and equal, bilateral. No added sounds. CARDIOVASCULAR: S1, S2 normal. No murmur. No gallop. ABDOMEN: Soft, nontender. No hepatosplenomegaly. EXTREMITIES: No edema. LABORATORY DATA: White count 5.5, hemoglobin 13.7, hematocrit 46.1, platelet 290. Sodium 134, potassium 4.4, creatinine 1.3. ASSESSMENT: 1. Right globe bleeding. 2. Chronic hypoxia. 3. History of pulmonary embolism. 4. Hypercoagulable state. 5. Chronic anemia. PLAN: She is currently on Coumadin. Came with subtherapeutic INR. I would recommend holding Coumadin. Ophthalmology consult requested by Dr. Kohli. We will wait ophthalmic opinion prior to starting anticoagulation. I will hold prophylactic heparin also as that may exacerbate bleeding. There is risk involved with thromboembolism and hypercoagulable state, but she is complaining of no vision in the right eye. She has chronic iron-deficiency anemia. Hemoglobin and hematocrit stable now. Renal function is within normal limits. Iron studies showed low iron of 34. Bilateral extensive embolism; history of pulmonary embolism; hypoxia, chronic, Dr. Herrera, Pulmonary following. Thank you, Dr. Kohli for allowing us to participate in Ms. Bates's care. We will continue to follow. Yoselin Lopez MD
--- NOTE | 2018-01-07 06:50 | PN ---
DATE: 01/06/2018 REFERRING PHYSICIAN: Melvina Kohli MD SUBJECTIVE: The patient is sitting side of the bed, feels better. Night was unremarkable. Tolerated BiPAP well. and granddaughter is bedside. No nausea. No vomiting, diarrhea, leg pain, or leg swelling. OBJECTIVE: GENERAL: No acute distress. VITAL SIGNS: Temperature is 98, heart rate 62, respiratory rate is 20, blood pressure 160/58, pulse ox 95% on 2 liter nasal cannula. HEENT: Moist mucous membrane. Crowded airway. NECK: Supple. No JVD. LUNGS: Have fair airflow with rhonchi. HEART: S1 and S2. ABDOMEN: Soft and nontender. No organomegaly. EXTREMITIES: There is no edema. NEUROLOGICAL: Awake and alert. Follow simple commands. MEDICATIONS: She is on Brovana inhaled twice a day, Coreg 6.25 mg twice a day, Diamox 250 mg, prednisone 20 mg daily, Pulmicort inhaled twice day, Revatio 20 mg three times a day. LABORATORY DATA: Shows hemoglobin 14.2, hematocrit 50, WBC 4.8, and platelet count is 183. INR is 1.99. Sodium 140, potassium 3.7, chloride 93, bicarbonate 44, BUN 24, creatinine 0.7, and glucose 126. Calcium is 8.6. AST 15, ALT 26, alkaline phosphatase is 46, albumin is 3.3. TSH is 0.47. IMPRESSION AND PLAN: Respiratory failure with CO2 retention, requiring noninvasive ventilation, pulmonary hypertension, history of pulmonary embolism, deep venous thrombosis in the remote past, history of cerebrovascular accident, gastroesophageal reflux disease, hypertension, obesity. Presently, in sinus rhythm. Case discussed with in detail. Spoke to nursing staff. Also, spoke to Dr. Kohli. Worrisome is her right eye surgical complication. hemorrhage in the back, which seems like old, but family wishes to be seen by their original club licensee, who have been following her as the outpatient and since surgery, she has no eyesight in the right. Decision to Coumadin, been anticoagulation for many months. Do discharge planning in the morning and will take the patient to the club licensee 2 days from now. Fall precaution. BiPAP while sleeping. Decreased prednisone to 10 mg daily. Continue Revatio 20 mg three times a day. Thank you and we will follow with you. Danii Herrera MD (Delete this signature block when dictator is a preceptor.) cc: MD Nemesio (Delete if not dictated.)
[2018-01-07 07:55] LABS: ALB/GLOB RATIO 1.1 (1.1-1.8); ALT/SGPT 27 U/L (7-56); AST/SGOT 16 U/L (14-36); BLOOD UREA NITROGEN 20 mg/dL (7-21); CALCIUM 8.6 mg/dL (8.4-10.5); GFR NON-AFRICAN AMERICAN > 60
[2018-01-07] MEDS: Arformoterol 15 mcg/2 ml Inh Sol IH SCH (08:14)
[2018-01-07] MEDS: Budesonide 0.25 mg/2 ml Inhal Susp UD IH SCH (08:14)
--- NOTE | 2018-01-07 08:15 | PN ---
DATE: 01/06/2018 SUBJECTIVE: Patient seen and examined at bedside on 01/06/2018. Looking comfortable. Noting that patient still cannot see from the right eye. No fever, no chills. Cough is better, shortness of breath is better. PHYSICAL EXAMINATION VITAL SIGNS: Temperature 99.1, pulse 56, blood pressure 120/80 , respiratory rate 20. HEENT: Head is normocephalic atraumatic. Eyes, PERRLA. Extraocular muscles intact. Conjunctivae clear. Nose patent. Mucous membranes moist. NECK: Supple. No carotid bruits. No thyromegaly. CHEST: Bilaterally symmetrical. HEART: S1, S2 positive. LUNGS: Lungs are clear to auscultation. ABDOMEN: Soft. Bowel sounds present. No organomegaly. EXTREMITIES: No edema, no cyanosis. NEUROLOGIC: Patient is awake and alert. Moving all 4 extremities. No focal deficits. MEDICATIONS: Coreg, Diamox, prednisone, Pulmicort, Revatio. LABORATORY DATA: White blood cells 4.8, hemoglobin 14.2, hematocrit 50, platelet 183. Sodium 140, potassium 3.7, BUN 24, creatinine 0.7, glucose 126. ASSESSMENT AND PLAN: Mr. Katty Bates is a 72-year-old lady with leukopenia, anemia, hypochloremia, renal insufficiency, hyperglycemia, iron deficiency, proteinuria, INR is 1.99, holding Coumadin, history of respiratory failure with carbon dioxide retention and narcosis requiring noninvasive ventilation, was admitted in the ICU, history of pulmonary hypertension, history of pulmonary embolism and deep vein thrombosis in the past, history of cerebrovascular accident, gastroesophageal reflux disease, obesity, hypertension, getting tapering dose of Solu Medrol, continue Revatio, discontinue Lasix and Diamox, continue bilevel positive airway pressure while sleeping and inhaled bronchodilators for precaution. CAT scan of the head done on 01/01/2018. Findings suspicious of acute hemorrhage with the right global. No acute intracranial abnormalities. Seen by Dr. Tavon Sanderson, neurologist for hemorrhage. Suggested that patient need pulmonologic evaluation. Actually, consult was called, waiting over the weekend. Discussed with patient's nurse Pratibha and patient's a couple of times and Dr. Herrera. Discussion done with Dr. Lopez and Dr. Herrera multiple times. Multiple discussion done with patient. Whole planning given. Continue present treatment. Continue holding Coumadin as per hematological Melvina Kohli MD ALINA
[2018-01-07] MEDS: Sildenafil 20 MG TAB PO SCH ×3 (09:17→17:39)
[2018-01-07 16:32] VITALS: BP 149/82; PULSE 80; TEMP 98.8; O2SAT 97
--- NOTE | 2018-01-08 00:52 | PN ---
DATE: 01/07/2018 PULMONARY PROGRESS NOTE REFERRING PHYSICIAN: Dr. Kohli SUBJECTIVE: She is out of bed to chair. is at bedside. Awaiting for Ophthalmology to see her before discharge. Feels better. Long discussion with her vendor for noninvasive ventilation pressures was given to them. No nausea and no vomiting. No diarrhea. Trace leg swelling. OBJECTIVE: GENERAL: In no acute distress. VITAL SIGNS: Temperature is 98, heart rate is 80, respiratory rate is 20, blood pressure 149/82, pulse ox 97% on room air. HEENT: Moist mucous membrane. Crowded airway. NECK: Supple. No JVD. LUNGS: Have a fair airflow with few rhonchi. HEART: S1 and S2. ABDOMEN: Soft, nontender. No organomegaly. EXTREMITIES: Trace edema. NEUROLOGICAL: Awake, alert. Follows simple command. MEDICATIONS: Reviewed and noted, no new changes in medication reported other than prednisone decreased to 10 mg daily. LABORATORY DATA: Shows sodium 141, potassium 3.4, chloride 92, bicarbonate 45, BUN 20, creatinine 0.7, calcium is 8.6, AST 16, ALT 27, alk phos is 40. Albumin is 3. IMPRESSION AND PLAN: Respiratory failure with carbon dioxide retention and hypoxemia requiring noninvasive ventilation, pulmonary hypertension, history of pulmonary embolism in the remote past, cerebrovascular accident, gastroesophageal reflux disease, hypertension, obesity, right eye blindness in the surgery, awaiting to be seen grain distributor. Coumadin being on hold, also being followed by Hematology. Pulmonary point of view, she is doing alright. I spoke to her vendor for noninvasive ventilation pressure readjusted, was placed on expiratory positive airway pressure of 7, tidal volume 350, backup rate 8 with 35% oxygen while sleeping, also on Diamox. Need to follow lab closely as outpatient. She will follow with Dr. Kohli. The patient urged to use noninvasive ventilation while sleeping. Thank you and we will follow as an outpatient. Danii Herrera MD
--- NOTE | 2018-01-08 05:14 | CON ---
DATE: 01/07/2018 OPHTHALMOLOGY CONSULTATION HISTORY OF PRESENT ILLNESS: The patient is a 72-year-old female with past medical history of asthma, hypertension, congestive heart failure. Her ocular past medical history is numerous surgeries for her right eye. She presented to the [facility] and who had a CT scan, which showed hemorrhage posterior to the globe. PHYSICAL EXAMINATION: Upon examining the patient, she reports no change in her vision. Her right eye has NLP vision. Her left eye has near vision of 20/100. On slit lamp exam, she has normal anterior segment in both eyes. She does have intraocular lenses in both eyes. 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 Her left eye shows few dark spot hemorrhages, but no acute disease. 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 Patient with previous vascular damage to her left eye. PLAN: The plan is for patient to be followed up as outpatient. If there are any questions, you can contact the office at [phone]. Maxime Lawson MD
== END 2018-01-07 18:53 | disposition home or self-care (01) | DRG 291 ==
LOC: ED 14:06 → ERH 18:53 → CCU 21:31 → 3RNO 01-03 18:46 → UNDODISIN 01-04 14:39
PROVIDERS: ADMIT Internal Medicine; ATTEND Internal Medicine
PROC: 5A09357 Assistance with Respiratory Ventilation, Less than 24 Consecutive Hours, Continuous Positive Airway Pressure (ICD-10-PCS; principal; 2018-01-01)
DX: I11.0 Hypertensive heart disease with heart failure (principal); J96.91 Respiratory failure, unspecified with hypoxia; E66.2 Morbid (severe) obesity with alveolar hypoventilation; H33.21 Serous retinal detachment, right eye; D68.59 Other primary thrombophilia; J44.1 Chronic obstructive pulmonary disease with (acute) exacerbation; E87.2 Acidosis; I50.9 Heart failure, unspecified; G47.33 Obstructive sleep apnea (adult) (pediatric); E11.65 Type 2 diabetes mellitus with hyperglycemia; E83.42 Hypomagnesemia; E87.8 Other disorders of electrolyte and fluid balance, not elsewhere classified; E83.39 Other disorders of phosphorus metabolism; H54.61 Unqualified visual loss, right eye, normal vision left eye; I27.20 Pulmonary hypertension, unspecified; E11.51 Type 2 diabetes mellitus with diabetic peripheral angiopathy without gangrene; D50.9 Iron deficiency anemia, unspecified; N28.9 Disorder of kidney and ureter, unspecified; K21.9 Gastro-esophageal reflux disease without esophagitis; Z68.37 Body mass index [BMI] 37.0-37.9, adult; Z79.01 Long term (current) use of anticoagulants; Z86.711 Personal history of pulmonary embolism; Z86.73 Personal history of transient ischemic attack (TIA), and cerebral infarction without residual deficits; Z86.718 Personal history of other venous thrombosis and embolism; Z99.81 Dependence on supplemental oxygen; Z87.01 Personal history of pneumonia (recurrent); Z87.891 Personal history of nicotine dependence